=== PATIENT | male | born 1940 | race African-American/Black ===

== ENCOUNTER 2018-02-20 13:10 | Inpatient (IN) | payer MEDICARE, OTHER ==
--- NOTE | 2018-02-20 13:43 | EKG REPORT ---
SEVERITY:- ABNORMAL ECG - SINUS RHYTHM VENTRICULAR PREMATURE COMPLEX NONSPECIFIC IVCD WITH LAD : Confirmed by: Estephanie Salazar MD 20-Feb-2018 13:43:04
[2018-02-20] MEDS ORDERED: ONDANSETRON 4 MG TAB.RAPDIS PO ONE (15:12)
--- NOTE | 2018-02-20 15:13 | ER Document Report ---
ED General - General Chief Complaint: Vomiting Stated Complaint: CHEST PAIN Time Seen by Provider: 02/20/18 15:01 Notes: Patient presents for concern of nausea and vomiting. He states that he ate Latvian food Monday night and contributes this to his vomiting episodes. He states that he has chest pain when he vomits but is chest pain-free in the emergency department this time. He has had approximately 8 episodes of vomiting over the last 2 days. He states recently his vomitus has been black colored. He is on Eliquis for A. fib. He has a history of triple bypass several years ago as well as a history of strokes. I have greeted and performed a rapid initial assessment of this patient. A comprehensive ED assessment and evaluation of the patient, analysis of test results and completion of the medical decision making process will be conducted by additional ED providers. PHYSICAL EXAMINATION: GENERAL: Well-appearing, well-nourished and in no acute distress. HEAD: Atraumatic, normocephalic. EYES: Pupils equal round extraocular movements intact, conjunctiva are normal. ENT: Nares patent, mildly dry mucus membranes NECK: Normal range of motion LUNGS: No respiratory distress Musculoskeletal: Normal range of motion NEUROLOGICAL: Normal speech, normal gait. PSYCH: Normal mood, normal affect. SKIN: Warm, Dry, normal turgor, no rashes or lesions noted. TRAVEL OUTSIDE OF THE [place] IN LAST 30 DAYS: No - Related Data Allergies/Adverse Reactions: ciprofloxacin [From Cipro] Allergy (Verified 05/18/15 11:06) enalapril maleate [From Vasotec] Allergy (Verified 05/18/15 11:06) niacin [From Niaspan] Allergy (Verified 05/18/15 11:06) Past Medical History - Social History Smoking Status: Former Smoker Family History: Reviewed & Not Pertinent Patient has suicidal ideation: No Patient has homicidal ideation: No - Past Medical History Cardiac Medical History: Reports: Hx Coronary Artery Disease, Hx Heart Attack - 2006, Hx Hypercholesterolemia, Hx Hypertension, Hx Pulmonary Embolism - x3 last 2007 Pulmonary Medical History: Reports: Hx Asthma, Hx COPD, Hx Tuberculosis Endocrine Medical History: Reports: Hx Diabetes Mellitus Type 2 Renal/ Medical History: Denies: Hx Peritoneal Dialysis Psychiatric Medical History: Reports: Hx Depression Past Surgical History: Reports: Hx Abdominal Surgery - colon polyps, Hx Cardiac Surgery - CABGx3, Hx Coronary Artery Bypass Graft - 2006, Hx Open Heart Surgery , Hx Rectal Surgery - colon polyps, Hx Urinary Tract Surgery - Immunizations Hx Diphtheria, Pertussis, Tetanus Vaccination: Yes Hx Pneumococcal Vaccination: 07/17/09 Physical Exam - Vital signs Vitals: Temp Pulse Resp BP Pulse Ox 98.3 F 70 14 120/74 95 02/20/18 13:28 02/20/18 13:28 02/20/18 13:28 02/20/18 13:28 02/20/18 13:28 Course - Vital Signs Vital signs: Temp Pulse Resp BP Pulse Ox 98.3 F 70 14 120/74 95 02/20/18 13:28 02/20/18 13:28 02/20/18 13:28 02/20/18 13:28 02/20/18 13:28 Discharge - Discharge Referrals: EARLINE KWON DO [Primary Care Provider] - Follow up as needed
[2018-02-20 15:36] LABS: ABSOLUTE BASOPHILS # (AUTO) 0.1 10^3/uL (0.0-0.2); ABSOLUTE LYMPHOCYTES (AUTO) 1.2 10^3/uL (0.5-4.7); ABSOLUTE MONOCYTES (AUTO) 0.7 10^3/uL (0.1-1.4); ABSOLUTE NEUT (AUTO) 7.3 10^3/uL (1.7-8.2); BASOPHILS % (AUTO) 0.7 % (0-2); EOSINOPHILS % (AUTO) 0.1 % (0-6); HEMATOCRIT 42.9 % (37.9-51.0); HEMOGLOBIN 14.1 g/dL (13.5-17.0); MEAN CORPUSCULAR HEMOGLOBIN 30.7 pg (27.0-33.4); MEAN CORPUSCULAR HGB CONC 32.9 g/dL (32.0-36.0); MEAN CORPUSCULAR VOLUME 93 fl (80-97); MONOCYTES % (AUTO) 7.9 % (3-13); PLATELET COUNT 135 10^3/uL (150-450); RED BLOOD COUNT 4.59 10^6/uL (4.35-5.55); RED CELL DISTRIBUTION WIDTH 15.1 % (11.5-14.0); SEGMENTED NEUTROPHILS % (AUTO) 78.3 % (42-78); TOTAL CELLS COUNTED % (AUTO) 100 %; WHITE BLOOD COUNT 9.4 10^3/uL (4.0-10.5)
[2018-02-20 15:48] LABS: PROTHROMBIN TIME 15.8 SEC (11.4-15.4)
--- NOTE | 2018-02-20 15:51 | RADIOLOGY REPORT (SQ) ---
EXAM DESCRIPTION: ACUTE ABDOMEN SERIES COMPLETED DATE/TIME: 02/20/2018 3:34 pm REASON FOR STUDY: lump in epigastric area when eating COMPARISON: None. NUMBER OF VIEWS: Three views. TECHNIQUE: Frontal chest, supine abdomen and upright/decubitus abdomen radiographic images acquired. LIMITATIONS: None. FINDINGS: CHEST: Lungs clear of infiltrates. FREE AIR: None. No abnormal gas collections. BOWEL GAS PATTERN: Nonobstructive pattern. No dilated loops or air fluid levels. CALCIFICATIONS: No suspicious calcifications. HARDWARE: Bilateral iliac stents. IVC filter. Status post CABG. SOFT TISSUES: No gross mass or suggestion of organomegaly. BONES: No acute fracture. No worrisome bone lesions. OTHER: No other significant finding. IMPRESSION: NO RADIOGRAPHIC EVIDENCE FOR ACUTE ABDOMINAL DISEASE. TECHNICAL DOCUMENTATION: JOB ID: [id number] [employer]- All Rights Reserved Reading location - IP/workstation name: [email or web address]
[2018-02-20 16:01] LABS: ALANINE AMINOTRANSFERASE 28 U/L (21-72); ALBUMIN 4.3 g/dL (3.5-5.0); ALKALINE PHOSPHATASE 69 U/L (38-126); ANION GAP 16 (5-19); ASPARTATE AMINO TRANSFERASE 54 U/L (17-59); BILIRUBIN,DIRECT 0.4 mg/dL (0.0-0.4); BILIRUBIN,TOTAL 0.9 mg/dL (0.2-1.3); BLOOD UREA NITROGEN 37 mg/dL (7-20); CALCIUM 9.4 mg/dL (8.4-10.2); CARBON DIOXIDE 31 mmol/L (22-30); CHLORIDE 94 mmol/L (98-107); GLUCOSE 140 mg/dL (75-110); LIPASE 1103.3 U/L (23-300); POTASSIUM 3.9 mmol/L (3.6-5.0); SODIUM 141.2 mmol/L (137-145); TOTAL PROTEIN 7.5 g/dL (6.3-8.2)
[2018-02-20 18:53] LABS: TRIGLYCERIDES 255 mg/dL (<150)
[2018-02-20 18:59] LABS: ALCOHOL < 10 mg/dL (NONE DETECTED)
--- NOTE | 2018-02-20 19:56 | RADIOLOGY REPORT (SQ) ---
EXAM DESCRIPTION: U/S ABDOMEN LTD W/DOPPLER COMPLETED DATE/TIME: 02/20/2018 7:39 pm REASON FOR STUDY: Acute pancreatitis COMPARISON: None. TECHNIQUE: Dynamic and static grayscale images acquired of the abdomen and recorded on PACS. Additio nal selected color Doppler and spectral images recorded. LIMITATIONS: None. FINDINGS: PANCREAS: Not able to be seen. LIVER: 15 cm. Normal echotexture. LIVER VASCULATURE: Normal directional flow of the main portal vein and hepatic veins. GALLBLADDER: Possible small gallstone versus polyp. ULTRASOUND-DETECTED TOLEDO'S SIGN: Negative. INTRAHEPATIC DUCTS AND COMMON DUCT: CBD and intrahepatic ducts normal caliber. No filling defects. INFERIOR VENA CAVA: Normal flow. AORTA: Poorly seen. The midportion the aorta appears normal. RIGHT KIDNEY: Normal size, 9.7 cm. Normal echogenicity. No solid or suspicious masses. No hydroneph rosis. No calcifications. PERITONEAL AND RIGHT PLEURAL SPACE: No ascites or effusions. OTHER: No other significant findings. IMPRESSION: Possible small gallstone versus polyp. The pancreas cannot be seen. TECHNICAL DOCUMENTATION: JOB ID: [id number] [employer]- All Rights Reserved Reading location - IP/workstation name: [email or web address]
[2018-02-20 20:29] LABS: LIPASE 1470.8 U/L (23-300)
[2018-02-20] MEDS ORDERED: NORMAL SALINE 1000 ML 1,000 ML IV ONE (20:34)
[2018-02-20] MEDS ORDERED: ZOLPIDEM TARTRATE 5 MG TABLET PO PRN (20:47)
[2018-02-20] MEDS ORDERED: MAGNESIUM HYDROXIDE SUSP 30 ML UDCUP PO PRN (20:47)
[2018-02-20] MEDS ORDERED: MAG HYDROX/AL HYDROX/SIMETH SUSP 30 ML UDCUP PO PRN (20:47)
[2018-02-20] MEDS ORDERED: ACETAMINOPHEN 325 MG TABLET PO PRN (20:47)
[2018-02-20] MEDS ORDERED: MORPHINE SULFATE 10 MG/ML INJ IV PRN (20:58)
--- NOTE | 2018-02-20 21:08 | ER Document Report ---
ED Medical Screen (RME) - General Chief Complaint: Vomiting Stated Complaint: CHEST PAIN Time Seen by Provider: 02/20/18 15:01 Notes: Patient presents for concern of nausea and vomiting. He states that he ate Yoruba food Monday night and contributes this to his vomiting episodes. He states that he has chest pain when he vomits but is chest pain-free in the emergency department this time. He has had approximately 8 episodes of vomiting over the last 2 days. He states recently his vomitus has been black colored. He is on Eliquis for A. fib. He has a history of triple bypass several years ago as well as a history of strokes. I have greeted and performed a rapid initial assessment of this patient. A comprehensive ED assessment and evaluation of the patient, analysis of test results and completion of the medical decision making process will be conducted by additional ED providers. PHYSICAL EXAMINATION: GENERAL: Well-appearing, well-nourished and in no acute distress. HEAD: Atraumatic, normocephalic. EYES: Pupils equal round extraocular movements intact, conjunctiva are normal. ENT: Nares patent, mildly dry mucus membranes NECK: Normal range of motion LUNGS: No respiratory distress Musculoskeletal: Normal range of motion NEUROLOGICAL: Normal speech, normal gait. PSYCH: Normal mood, normal affect. TRAVEL OUTSIDE OF THE [place] IN LAST 30 DAYS: No - Related Data Allergies/Adverse Reactions: ciprofloxacin [From Cipro] Allergy (Verified 05/18/15 11:06) enalapril maleate [From Vasotec] Allergy (Verified 05/18/15 11:06) niacin [From Niaspan] Allergy (Verified 05/18/15 11:06) Past Medical History - Past Medical History Cardiac Medical History: Reports: Hx Coronary Artery Disease, Hx Heart Attack - 2006, Hx Hypercholesterolemia, Hx Hypertension, Hx Pulmonary Embolism - x3 last 2007 Pulmonary Medical History: Reports: Hx Asthma, Hx COPD, Hx Tuberculosis Endocrine Medical History: Reports: Hx Diabetes Mellitus Type 2 Renal/ Medical History: Denies: Hx Peritoneal Dialysis Psychiatric Medical History: Reports: Hx Depression Past Surgical History: Reports: Hx Abdominal Surgery - colon polyps, Hx Cardiac Surgery - CABGx3, Hx Coronary Artery Bypass Graft - 2006, Hx Open Heart Surgery , Hx Rectal Surgery - colon polyps, Hx Urinary Tract Surgery - Immunizations Hx Diphtheria, Pertussis, Tetanus Vaccination: Yes Physical Exam - Vital signs Vitals: Temp Pulse Resp BP Pulse Ox 98.3 F 70 14 120/74 95 02/20/18 13:28 02/20/18 13:28 02/20/18 13:28 02/20/18 13:28 02/20/18 13:28 Course - Vital Signs Vital signs: Temp Pulse Resp BP Pulse Ox 98.3 F 70 15 163/84 H 96 02/20/18 13:28 02/20/18 13:28 02/20/18 20:30 02/20/18 20:30 02/20/18 20:30 - Laboratory Result Diagrams: 02/20/18 15:18 02/20/18 15:18 Laboratory results interpreted by me: 02/20/18 02/20/18 02/20/18 15:18 15:18 15:18 RDW 15.1 H Plt Count 135 L Seg Neutrophils % 78.3 H PT 15.8 H Chloride 94 L Carbon Dioxide 31 H BUN 37 H Creatinine 1.44 H Est GFR ( Amer) 57 L Est GFR (Non-Af Amer) 47 L Glucose 140 H Magnesium 1.5 L Triglycerides Amylase Lipase 1103.3 H 02/20/18 02/20/18 15:18 19:50 RDW Plt Count Seg Neutrophils % PT Chloride Carbon Dioxide BUN Creatinine Est GFR ( Amer) Est GFR (Non-Af Amer) Glucose Magnesium Triglycerides 255 H Amylase 400 H Lipase 1470.8 H
--- NOTE | 2018-02-20 21:59 | PDOC H&P ---
History of Present Illness Admission Date/PCP: 02/20/2018 LEÓN MCFARLAND DO Patient complains of: Recurrent nausea and vomiting History of Present Illness: ISAURO CARREON is a 77 year old gentleman with history of multiple medical problems that will be mentioned below presented to the emergency room with acute onset of recurrent nausea and vomiting with associated epigastric abdominal pain and mild diarrhea with loose bowel movements. He ate Mongolian food on Monday night which she believes contributed to his vomiting. He admitted to drinking 2 glasses of vodka on Monday night he has been getting chest pain with vomiting but has been chest pain-free in the emergency room. Over the last couple of days he had about 8 episodes of vomiting. It has been black colored. He has been on Eliquis for atrial fibrillation and history of CVAs. He admitted to intermittent dry cough and raw throat feeling with minimal postnasal drip. He denies any fever or chills. No dysuria, oliguria, hematuria or flank pain. No headache, dizziness or blurred vision. Upon presentation to the emergency room is vital signs were within normal as listed except for elevated blood pressure 163/83 that was 120/74 earlier. His labs were remarkable for elevated BUN of 37 and creatinine 1.44 with CO2 31 and chloride of 94. Blood glucose was 140 and his platelets were low at 135. LFTs were within normal. His serum lipase came significantly elevated at 1103. His PT was 15.8 and INR was 1.2 and magnesium level was low at 1.5. LDH was 211 and his amylase was 400. Repeat lipase levels came back 1470.8. He was given 4 mg of Zofran as well as hydration with IV normal saline. Acute abdominal series came back negative for acute abnormalities. His EKG showed normal sinus rhythm with a rate of 66 with PVC and nonspecific intraventricular conduction delay. The patient will be admitted to a medically monitored bed for further evaluation and management Past Medical History Cardiac Medical History: Reports: Coronary Artery Disease, Myocardial Infarction - 2007, Hyperlipidema, Hypertension, Pulmonary Embolism - x3 last 2007, on Eliquis Pulmonary Medical History: Reports: Asthma, Chronic Obstructive Pulmonary Disease (COPD), Tuberculosis Endocrine Medical History: Reports: Diabetes Mellitus Type 2 Psychiatric Medical History: Reports: Depression Past Surgical History Past Surgical History: Reports: Coronary Artery Bypass Graft - 2007 Social History Smoking Status: Former Smoker Frequency of Alcohol Use: Rare Hx Recreational Drug Use: No Hx Prescription Drug Abuse: No Family History Family History: CVA Parental Family History Reviewed: Yes Children Family History Reviewed: Yes Sibling(s) Family History Reviewed.: Yes Medication/Allergy Home Medications: Paroxetine HCl [Paxil] 30 mg PO DAILY 06/22/12 Amlodipine Besylate 5 mg PO DAILY 07/31/13 Atorvastatin Calcium [Lipitor 80 mg Tablet] 80 mg PO QHS 07/31/13 Metoprolol Tartrate [Lopressor 50 mg Tablet] 50 mg PO BID 07/31/13 Warfarin Sodium 5 mg PO ASDIR PRN 07/31/13 Warfarin Sodium 7.5 mg PO ASDIR PRN 07/31/13 Metformin HCl 500 mg PO BID 03/28/15 Oxycodone HCl/Acetaminophen [Percocet 5-325 mg Tablet] 1 - 2 tab PO ASDIR PRN # 15 tablet 03/28/15 Prednisone [Deltasone 10 mg Tablet] 10 mg PO ASDIR PRN #21 tablet 03/28/15 Azithromycin [Zithromax 250 mg Tablet] 250 mg PO ASDIR PRN #6 tablet 05/18/15 Allergies/Adverse Reactions: ciprofloxacin [From Cipro] Allergy (Verified 05/18/15 11:06) enalapril maleate [From Vasotec] Allergy (Verified 05/18/15 11:06) niacin [From Niaspan] Allergy (Verified 05/18/15 11:06) Review of Systems Review of Systems: As per history of present illness. All pertinent systems were reviewed above. Constitutional, HEENT, cardiovascular, respiratory, GI, , musculoskeletal, neuro, psychiatric, endocrine, integumentary and hematologic systems were reviewed and are otherwise negative/unremarkable except for positive findings mentioned above in the HPI. Physical Exam Vital Signs: Temp Pulse Resp BP Pulse Ox 98.3 F 70 15 163/84 H 96 02/20/18 13:28 02/20/18 13:28 02/20/18 20:30 02/20/18 20:30 02/20/18 20:30 Intake & Output 02/19/18 02/20/18 02/21/18 06:59 06:59 06:59 Weight 93.8 kg Exam: Generally: Very pleasant elderly -Martiniquais gentleman in no acute distress Vital signs-as listed Head - atraumatic, normocephalic. Pupils - equal, round and reactive to light and accommodation. Extraocular movements are intact. No scleral icterus. Oropharynx - moist mucous membranes and tongue. No pharyngeal erythema or exudate. Neck - supple. No JVD. Carotid pulses 2+ bilaterally. No carotid bruits. No palpable thyromegaly or lymphadenopathy. Cardiovascular - regular rate and rhythm. Normal S1 and S2. No murmurs, gallops or rubs. Lungs - clear to auscultation bilaterally. Abdomen - soft with minimal epigastric tenderness without rebound tenderness guarding or rigidity. Positive bowel sounds. No palpable organomegaly or masses. Extremities - no pitting edema, clubbing or cyanosis. Neuro - grossly non-focal. Skin - no rashes. and rectal exam - deferred. Results Laboratory Results: 02/20/18 15:18 02/20/18 15:18 02/20/18 02/20/18 02/20/18 15:18 15:18 15:18 WBC 9.4 RBC 4.59 Hgb 14.1 Hct 42.9 MCV 93 MCH 30.7 MCHC 32.9 RDW 15.1 H Plt Count 135 L Seg Neutrophils % 78.3 H Lymphocytes % 13.0 Monocytes % 7.9 Eosinophils % 0.1 Basophils % 0.7 Absolute Neutrophils 7.3 Absolute Lymphocytes 1.2 Absolute Monocytes 0.7 Absolute Eosinophils 0.0 Absolute Basophils 0.1 Sodium 141.2 Potassium 3.9 Chloride 94 L Carbon Dioxide 31 H Anion Gap 16 BUN 37 H Creatinine 1.44 H Est GFR ( Amer) 57 L Est GFR (Non-Af Amer) 47 L Glucose 140 H Calcium 9.4 Magnesium 1.5 L Total Bilirubin 0.9 AST 54 ALT 28 Alkaline Phosphatase 69 Total Protein 7.5 Albumin 4.3 Triglycerides 255 H Amylase Lipase 1103.3 H 02/20/18 02/20/18 18:48 19:50 WBC RBC Hgb Hct MCV MCH MCHC RDW Plt Count Seg Neutrophils % Lymphocytes % Monocytes % Eosinophils % Basophils % Absolute Neutrophils Absolute Lymphocytes Absolute Monocytes Absolute Eosinophils Absolute Basophils Sodium Potassium Chloride Carbon Dioxide Anion Gap BUN Creatinine Est GFR ( Amer) Est GFR (Non-Af Amer) Glucose Calcium Magnesium Total Bilirubin AST ALT Alkaline Phosphatase Total Protein Albumin Triglycerides Amylase Cancelled 400 H Lipase Cancelled 1470.8 H 02/20/18 15:18 Troponin I 0.029 Impressions: Acute Abdomen Series 02/20/18 15:08 IMPRESSION: NO RADIOGRAPHIC EVIDENCE FOR ACUTE ABDOMINAL DISEASE. Abdomen Ultrasound 02/20/18 18:29 IMPRESSION: Possible small gallstone versus polyp. The pancreas cannot be seen. Assessment & Plan - Diagnosis (1) Acute pancreatitis Is this a current diagnosis for this admission?: Yes Plan: The patient will be admitted to a medically monitored bed. The patient will be kept n.p.o. Will hydrate with IV normal saline and place him on pain therapy with as needed p.o. Percocet and IV morphine sulfate. Will follow serial lipase levels. (2) Acute kidney injury Is this a current diagnosis for this admission?: Yes Plan: This is likely secondary to dehydration from recurrent nausea vomiting and diarrhea. Will check stool studies given the possibility of associated gastroenteritis and he will be hydrated with IV normal saline. CMP will be followed (3) Type 2 diabetes mellitus Qualifiers: Diabetes mellitus custodial insulin use: without custodial use Diabetes mellitus complication status: without complication Qualified Code(s): E11.9 - Type 2 diabetes mellitus without complications Is this a current diagnosis for this admission?: Yes Plan: Patient will be placed on supplemental coverage with Humalog and will hold off metformin. (4) Coronary artery disease Is this a current diagnosis for this admission?: Yes Plan: We will continue Lopressor. (5) Hypertension Is this a current diagnosis for this admission?: Yes Plan: We will continue Norvasc and Lopressor. (6) Dyslipidemia Is this a current diagnosis for this admission?: Yes Plan: We will hold off statin therapy for now while following LFTs. (7) DVT prophylaxis Is this a current diagnosis for this admission?: Yes Plan: We will continue Eliquis. He had a history of PE 3. GI prophylaxis will be provided with IV Protonix especially given recurrent nausea and vomiting and use of Eliquis. - Plan Summary Plan Summary: The plan of care was discussed in details with the patient. I answered all questions. The patient agreed to proceed with the above-mentioned plan. The patient is presumably full code. This note was created by [employer] software and may contain typo errors that may have not been proofread.
[2018-02-20] MEDS ORDERED: ENOXAPARIN SODIUM INJ 40 MG/0.4 ML DISP.SYRIN SUBCUT SCH (22:00)
[2018-02-20] MEDS: METOPROLOL TARTRATE 50 MG TABLET PO SCH (22:01)
[2018-02-20] MEDS: PANTOPRAZOLE SODIUM 40 MG VIAL IV SCH (22:02)
[2018-02-20] MEDS ORDERED: DEXTROSE 50%-WATER 25 GM/50 ML DISP.SYRIN IV PRN ×2 (23:16)
[2018-02-20] MEDS ORDERED: DEXTROSE 40% GEL 15 GM TUBE PO PRN ×2 (23:16)
[2018-02-20] MEDS ORDERED: GLUCAGON,HUMAN RECOMB 1 MG INJ IM PRN (23:16)
--- NOTE | 2018-02-20 23:27 | ER Document Report ---
ED General - General Chief Complaint: Vomiting Stated Complaint: CHEST PAIN Time Seen by Provider: 02/20/18 15:01 TRAVEL OUTSIDE OF THE [place] IN LAST 30 DAYS: No - HPI Patient complains to provider of: Vomiting chest pain Notes: Patient coming in for evaluation of vomiting chest pain. Patient states approximately 4 hours ago he had Scottish food since that time has vomited multiple times with epigastric and chest pain. Patient does have past medical history positive for A. fib urinary embolism currently is on Eliquis. Patient continues to have his gallbladder and his appendix states no abdominal surgeries. Patient upon my evaluation is resting comfortably stating that he feels somewhat better after nausea medication. Patient also relates that he does drink alcohol occasionally however nothing recently in the last 24-48 hours. Denies any fevers chills denies any diarrhea. - Related Data Allergies/Adverse Reactions: ciprofloxacin [From Cipro] Allergy (Verified 05/18/15 11:06) enalapril maleate [From Vasotec] Allergy (Verified 05/18/15 11:06) niacin [From Niaspan] Allergy (Verified 05/18/15 11:06) Past Medical History - Social History Smoking Status: Former Smoker Family History: CVA Patient has suicidal ideation: No Patient has homicidal ideation: No - Past Medical History Cardiac Medical History: Reports: Hx Coronary Artery Disease, Hx Heart Attack - 2006, Hx Hypercholesterolemia, Hx Hypertension, Hx Pulmonary Embolism - x3 last 2007, on Eliquis Pulmonary Medical History: Reports: Hx Asthma, Hx COPD, Hx Tuberculosis Endocrine Medical History: Reports: Hx Diabetes Mellitus Type 2 Renal/ Medical History: Denies: Hx Peritoneal Dialysis Psychiatric Medical History: Reports: Hx Depression Past Surgical History: Reports: Hx Abdominal Surgery - colon polyps, Hx Cardiac Surgery - CABGx3, Hx Coronary Artery Bypass Graft - 2006, Hx Open Heart Surgery , Hx Rectal Surgery - colon polyps, Hx Urinary Tract Surgery - Immunizations Hx Diphtheria, Pertussis, Tetanus Vaccination: Yes Hx Pneumococcal Vaccination: 07/17/09 Review of Systems - Review of Systems Constitutional: No symptoms reported EENT: No symptoms reported Cardiovascular: No symptoms reported, Chest pain Respiratory: No symptoms reported Gastrointestinal: Abdominal pain, Nausea, Vomiting Genitourinary: No symptoms reported Male Genitourinary: No symptoms reported Musculoskeletal: No symptoms reported Skin: No symptoms reported Hematologic/Lymphatic: No symptoms reported Neurological/Psychological: No symptoms reported -: Yes All other systems reviewed and negative Physical Exam - Vital signs Vitals: Temp Pulse Resp BP Pulse Ox 98.3 F 70 14 120/74 95 02/20/18 13:28 02/20/18 13:28 02/20/18 13:28 02/20/18 13:28 02/20/18 13:28 Interpretation: Normal - General General appearance: Appears well, Alert - HEENT Head: Normocephalic, Atraumatic Eyes: Normal Pupils: PERRL - Respiratory Respiratory status: No respiratory distress Chest status: Nontender Breath sounds: Normal Chest palpation: Normal - Cardiovascular Rhythm: Regular Heart sounds: Normal auscultation Murmur: No - Abdominal Inspection: Normal Distension: No distension Bowel sounds: Normal Tenderness: Tender - Mild tenderness epigastric region the right upper quadrant tenderness no guarding or rebound Organomegaly: No organomegaly - Back Back: Normal, Nontender - Extremities General upper extremity: Normal inspection, Nontender, Normal color, Normal ROM , Normal temperature General lower extremity: Normal inspection, Nontender, Normal color, Normal ROM , Normal temperature, Normal weight bearing. No: Elen's sign - Neurological Neuro grossly intact: Yes Cognition: Normal Orientation: AAOx4 Lilo Coma Scale Eye Opening: Spontaneous [place] Coma Scale Verbal: Oriented Lilo Coma Scale Motor: Obeys Commands [place] Coma Scale Total: 15 Speech: Normal Motor strength normal: LUE, RUE, LLE, RLE Sensory: Normal - Psychological Associated symptoms: Normal affect, Normal mood - Skin Skin Temperature: Warm Skin Moisture: Dry Skin Color: Normal Course - Re-evaluation Re-evalutation: 02/20/18 23:25 Laboratory studies showed elevated lipase concerning for pancreatitis. Ultrasound was performed along with LDH triglycerides and a repeat lipase showing up trending. Patient otherwise states he is feeling better. Now concern for the patient's underlying comorbidities and his age will admit the patient for observation for underlying pancreatitis. - Vital Signs Vital signs: Temp Pulse Resp BP Pulse Ox 98.3 F 70 22 H 148/88 H 94 02/20/18 13:28 02/20/18 13:28 02/20/18 22:01 02/20/18 22:00 02/20/18 22:01 - Laboratory Result Diagrams: 02/20/18 15:18 02/20/18 15:18 Laboratory results interpreted by me: 02/20/18 02/20/18 02/20/18 15:18 15:18 15:18 RDW 15.1 H Plt Count 135 L Seg Neutrophils % 78.3 H PT 15.8 H Chloride 94 L Carbon Dioxide 31 H BUN 37 H Creatinine 1.44 H Est GFR ( Amer) 57 L Est GFR (Non-Af Amer) 47 L Glucose 140 H Magnesium 1.5 L Triglycerides Amylase Lipase 1103.3 H 02/20/18 02/20/18 15:18 19:50 RDW Plt Count Seg Neutrophils % PT Chloride Carbon Dioxide BUN Creatinine Est GFR ( Amer) Est GFR (Non-Af Amer) Glucose Magnesium Triglycerides 255 H Amylase 400 H Lipase 1470.8 H Discharge - Discharge Clinical Impression: Acute pancreatitis, Coronary artery disease Type 2 diabetes mellitus Qualifiers: Diabetes mellitus chcf insulin use: without long term care administrator use Diabetes mellitus complication status: without complication Qualified Code(s): E11.9 - Type 2 diabetes mellitus without complications Condition: Good Disposition: ADMITTED INPATIENT Admitting Provider: [facility] Unit Admitted: Telemetry
[2018-02-20] MEDS ORDERED: APIXABAN 5 MG TABLET PO ONE (23:30)
[2018-02-20] MEDS: MAGNESIUM SULFATE/D5W 1 GM/100 ML RTUPB IV SCH (23:56)
[2018-02-21] MEDS: MAGNESIUM SULFATE/D5W 1 GM/100 ML RTUPB IV SCH (00:54)
[2018-02-21 07:10] LABS: ALANINE AMINOTRANSFERASE 33 U/L (21-72); ALBUMIN 3.4 g/dL (3.5-5.0); ALKALINE PHOSPHATASE 79 U/L (38-126); ANION GAP 11 (5-19); ASPARTATE AMINO TRANSFERASE 35 U/L (17-59); BILIRUBIN,DIRECT 0.3 mg/dL (0.0-0.4); BILIRUBIN,TOTAL 0.8 mg/dL (0.2-1.3); BLOOD UREA NITROGEN 26 mg/dL (7-20); CALCIUM 8.7 mg/dL (8.4-10.2); CARBON DIOXIDE 29 mmol/L (22-30); CHLORIDE 102 mmol/L (98-107); POTASSIUM 4.1 mmol/L (3.6-5.0); SODIUM 141.9 mmol/L (137-145); TOTAL PROTEIN 5.8 g/dL (6.3-8.2)
[2018-02-21 07:12] LABS: GLUCOSE 103 mg/dL (75-110)
[2018-02-21 07:20] LABS: HEMATOCRIT 40.1 % (37.9-51.0); HEMOGLOBIN 13.3 g/dL (13.5-17.0); LIPASE 2305.7 U/L (23-300); MEAN CORPUSCULAR HEMOGLOBIN 30.6 pg (27.0-33.4); MEAN CORPUSCULAR HGB CONC 33.2 g/dL (32.0-36.0); MEAN CORPUSCULAR VOLUME 92 fl (80-97); PLATELET COUNT 106 10^3/uL (150-450); RED BLOOD COUNT 4.35 10^6/uL (4.35-5.55); RED CELL DISTRIBUTION WIDTH 15.3 % (11.5-14.0); WHITE BLOOD COUNT 7.2 10^3/uL (4.0-10.5)
[2018-02-21 07:22] LABS: ABSOLUTE LYMPHOCYTES# (MANUAL) 1.3 10^3/uL (0.5-4.7); ABSOLUTE MONOCYTES # (MANUAL) 0.7 10^3/uL (0.1-1.4); ANISOCYTOSIS SLIGHT; BASOPHILS % (MANUAL) 0 % (0-2); EOSINOPHILS % (MANUAL) 2 % (0-6); LYMPHOCYTES % (MANUAL) 18 % (13-45); MONOCYTES % (MANUAL) 10 % (3-13); SEGMENTED NEUTROPHILS % (MAN) 70 % (42-78); TOTAL CELLS COUNTED 100
[2018-02-21 07:23] LABS: PLATELET COMMENT DECREASED
--- NOTE | 2018-02-21 09:39 | PDOC CONSULTATION ---
Consultation Consult reason:: Pancreatitis History of Present Illness Admission Date/PCP: 02/20/18 21:06 LEÓN MCFARLAND DO History of Present Illness: ISAURO CARREON is a 77 year old male seen at the request of the hospitalist service. Patient has a several day history of sharp, stabbing abdominal pain in the epigastric region. It bores through to the back. The patient has had multiple episodes of nausea and vomiting. He also reports intermittent diarrhea. Patient has never had symptoms like this before. The patient was found to have gallstones on ultrasound. The patient also reports drinking alcohol several times a week (I suspect every day). At this time the patient denies chest pain, shortness of breath, fevers, chills, dizziness, orthostasis, rash, pruritus. The patient's abdominal pain is still present, but it is improving. He does report malaise and fatigue. He denies a history of liver failure. He has a significant cardiac history, including four-vessel CABG. The patient reports that he recently was evaluated in [place] by his booth cleaner. Past Medical History Cardiac Medical History: Reports: Coronary Artery Disease, Myocardial Infarction - 2006, Hyperlipidema, Hypertension, Pulmonary Embolism - x3 last 2007, on Eliquis Pulmonary Medical History: Reports: Asthma, Chronic Obstructive Pulmonary Disease (COPD), Tuberculosis Endocrine Medical History: Reports: Diabetes Mellitus Type 2 Psychiatric Medical History: Reports: Depression Past Surgical History Past Surgical History: Reports: Coronary Artery Bypass Graft - 2006 Social History Smoking Status: Former Smoker Frequency of Alcohol Use: Heavy Hx Recreational Drug Use: No Hx Prescription Drug Abuse: No Family History Family History: CVA Parental Family History Reviewed: Yes Children Family History Reviewed: Yes Sibling(s) Family History Reviewed.: Yes Medication/Allergy Home Medications: Paroxetine HCl [Paxil] 30 mg PO DAILY 06/22/12 Amlodipine Besylate 5 mg PO DAILY 07/31/13 Atorvastatin Calcium [Lipitor 80 mg Tablet] 80 mg PO QHS 07/31/13 Metoprolol Tartrate [Lopressor 50 mg Tablet] 50 mg PO BID 07/31/13 Warfarin Sodium 5 mg PO ASDIR PRN 07/31/13 Warfarin Sodium 7.5 mg PO ASDIR PRN 07/31/13 Metformin HCl 500 mg PO BID 03/28/15 Oxycodone HCl/Acetaminophen [Percocet 5-325 mg Tablet] 1 - 2 tab PO ASDIR PRN # 15 tablet 03/28/15 Prednisone [Deltasone 10 mg Tablet] 10 mg PO ASDIR PRN #21 tablet 03/28/15 Azithromycin [Zithromax 250 mg Tablet] 250 mg PO ASDIR PRN #6 tablet 05/18/15 Allergies/Adverse Reactions: ciprofloxacin [From Cipro] Allergy (Verified 05/18/15 11:06) enalapril maleate [From Vasotec] Allergy (Verified 05/18/15 11:06) niacin [From Niaspan] Allergy (Verified 05/18/15 11:06) Review of Systems Constitutional: PRESENT: fatigue. ABSENT: fever(s), headache(s) Eyes: ABSENT: visual disturbances Ears: ABSENT: hearing changes Nose, Mouth, and Throat: ABSENT: sore throat Cardiovascular: ABSENT: chest pain Respiratory: ABSENT: cough, dyspnea Gastrointestinal: PRESENT: abdominal pain, nausea, vomiting Genitourinary: ABSENT: dysuria Musculoskeletal: PRESENT: back pain Integumentary: ABSENT: pruritus, rash Neurological: ABSENT: abnormal movements, confusion, convulsions Psychiatric: ABSENT: anxiety, depression, hallucinations Endocrine: ABSENT: cold intolerance, heat intolerance Hematologic/Lymphatic: PRESENT: easy bleeding - Takes Eliquis Physical Exam Vital Signs: Temp Pulse Resp BP Pulse Ox 97.9 F 61 16 136/66 H 97 02/21/18 08:07 02/21/18 08:07 02/21/18 08:07 02/21/18 08:07 02/21/18 08:07 Intake & Output 02/20/18 02/21/18 02/22/18 06:59 06:59 06:59 Intake Total 200 Balance 200 Weight 93.1 kg General appearance: PRESENT: no acute distress Head exam: PRESENT: atraumatic, normocephalic Eye exam: PRESENT: EOMI, PERRLA. ABSENT: scleral icterus Mouth exam: PRESENT: moist, neck supple Teeth exam: ABSENT: poor dentation Neck exam: ABSENT: lymphadenopathy, meningismus, tenderness, thyromegaly, tracheal deviation Respiratory exam: PRESENT: clear to auscultation claire, unlabored. ABSENT: accessory muscle use, chest wall tenderness, rhonchi, stridor, tachypnea, wheezes Cardiovascular exam: PRESENT: irregular rhythm Pulses: PRESENT: normal radial pulses Vascular exam: PRESENT: normal capillary refill. ABSENT: pallor GI/Abdominal exam: PRESENT: soft, tenderness - Mild epigastric tenderness. ABSENT: distended, firm, guarding Rectal exam: PRESENT: deferred Extremities exam: ABSENT: clubbing Musculoskeletal exam: ABSENT: deformity Neurological exam: PRESENT: alert, awake, oriented to person, oriented to place , oriented to time, oriented to situation, CN II-XII grossly intact Psychiatric exam: ABSENT: agitated, anxious, depressed Focused psych exam: ABSENT: delusional Skin exam: ABSENT: cyanosis, erythema, jaundice Results Laboratory Results: 02/21/18 06:33 02/21/18 06:33 02/21/18 02/21/18 06:33 06:33 WBC 7.2 RBC 4.35 Hgb 13.3 L Hct 40.1 MCV 92 MCH 30.6 MCHC 33.2 RDW 15.3 H Plt Count 106 L Seg Neutrophils % Not Reportable Lymphocytes % Not Reportable Monocytes % Not Reportable Eosinophils % Not Reportable Basophils % Not Reportable Absolute Neutrophils Not Reportable Absolute Lymphocytes Not Reportable Absolute Monocytes Not Reportable Absolute Eosinophils Not Reportable Absolute Basophils Not Reportable Sodium 141.9 Potassium 4.1 Chloride 102 Carbon Dioxide 29 Anion Gap 11 BUN 26 H Creatinine 0.97 Est GFR ( Amer) > 60 Est GFR (Non-Af Amer) > 60 Glucose 103 Calcium 8.7 Total Bilirubin 0.8 AST 35 ALT 33 Alkaline Phosphatase 79 Total Protein 5.8 L Albumin 3.4 L Lipase 2305.7 H Impressions: Acute Abdomen Series 02/20/18 15:08 IMPRESSION: NO RADIOGRAPHIC EVIDENCE FOR ACUTE ABDOMINAL DISEASE. Abdomen Ultrasound 02/20/18 18:29 IMPRESSION: Possible small gallstone versus polyp. The pancreas cannot be seen. Status: Imported from PACS Assessment & Plan - Diagnosis (1) Acute pancreatitis Qualifiers: Pancreatitis type: unspecified pancreatitis type Is this a current diagnosis for this admission?: Yes - Plan Summary Plan Summary: This is a 77-year-old male with gallstones and pancreatitis. The patient also has history of alcohol use. At this time, it is unclear whether his pancreatitis is due strictly to gallstones or not. If the patient is a good surgical candidate, cholecystectomy is indicated. The patient has a significant cardiac history. I will request his records from [place]. Patient was evaluated by his booth cleaner several months ago and was given a "clean bill of health". Hold Eliquis. Plan surgical intervention once cardiac stability is confirmed.
[2018-02-21] MEDS: ONDANSETRON HCL INJ/PF 4 MG/2 ML SDV IV PRN (09:59)
[2018-02-21] MEDS ORDERED: APIXABAN 5 MG TABLET PO SCH (10:00)
[2018-02-21] MEDS ORDERED: (PENDING PHARMACY ID) (Paroxetine Hcl [Paxil] 30 MG) PO SCH (10:00)
[2018-02-21] MEDS: GUAIFENESIN 600 MG TABLET.SA PO SCH ×2 (11:34→21:42)
[2018-02-21] MEDS: PAROXETINE HCL 20 MG TABLET PO SCH (11:35)
[2018-02-21] MEDS: AMLODIPINE BESYLATE 5 MG TABLET PO SCH (11:36)
[2018-02-21] MEDS: METOPROLOL TARTRATE 50 MG TABLET PO SCH ×2 (11:38→21:43)
[2018-02-21] MEDS: FLUTICASONE NASAL SPRAY 50 MCG/SPRY 120 SPRAY/16 GM NASL SCH (11:39)
[2018-02-21] MEDS: PANTOPRAZOLE SODIUM 40 MG VIAL IV SCH ×2 (12:06→21:44)
[2018-02-21] MEDS: OXYCODONE-ACETAMINOPHEN 5-325 MG TABLET PO PRN ×2 (12:23→16:56)
[2018-02-21] MEDS: NORMAL SALINE 1000 ML 1,000 ML IV PRN (14:57)
[2018-02-21] MEDS ORDERED: ALBUTEROL SULFATE HFA (90 MCG/PUFF) 200 PUFF/8.5 GM MDI IH PRN (17:58)
--- NOTE | 2018-02-21 17:58 | PDOC PROGRESS REPORT ---
Subjective Progress Note for:: 02/21/18 Subjective:: The patient is complaining of abdominal pain, but primarily in his right lower quadrant. When I explain where his pancreas is he also complains of pain there. He states that he feels no better, but actually feels worse. On the other hand he states that he would like a steak. Reason For Visit: ACUTE PANCREATITIS Physical Exam Vital Signs: Temp Pulse Resp BP Pulse Ox 98.3 F 54 L 18 131/64 H 93 02/21/18 11:59 02/21/18 14:00 02/21/18 11:59 02/21/18 11:59 02/21/18 11:59 Intake & Output 02/20/18 02/21/18 02/22/18 06:59 06:59 06:59 Intake Total 200 Balance 200 Weight 93.1 kg General appearance: PRESENT: mild distress - From abdominal pain., morbidly obese Respiratory exam: PRESENT: other - No increased work of breathing.. ABSENT: rales, rhonchi, wheezes Cardiovascular exam: PRESENT: RRR, other - No lateral PMI. No thrills.. ABSENT : gallop, systolic murmur Pulses: PRESENT: other - Diminished distal pulses. GI/Abdominal exam: PRESENT: tenderness - The patient indicates tenderness in the right lower quadrant and then his hypogatrum and finaly his epigastrum. To exam his abdomen is diffusely tender., other - Abdomen is morbidly obese and I am unable to evaluate the abdomen for hernia, masses, or organomegaly. Bowel sounds are distant. Rectal exam: PRESENT: deferred Extremities exam: PRESENT: other - Chronic venous stasis dermatitis.. ABSENT: clubbing, tenderness Musculoskeletal exam: PRESENT: tenderness. ABSENT: deformity, dislocation Neurological exam: PRESENT: alert, awake, oriented to person, oriented to place , oriented to time, oriented to situation, CN II-XII grossly intact. ABSENT: motor sensory deficit Psychiatric exam: PRESENT: appropriate affect, normal mood Skin exam: PRESENT: dry, intact, warm Results Laboratory Results: 02/21/18 06:33 02/21/18 06:33 02/21/18 02/21/18 06:33 06:33 WBC 7.2 RBC 4.35 Hgb 13.3 L Hct 40.1 MCV 92 MCH 30.6 MCHC 33.2 RDW 15.3 H Plt Count 106 L Seg Neutrophils % Not Reportable Lymphocytes % Not Reportable Monocytes % Not Reportable Eosinophils % Not Reportable Basophils % Not Reportable Absolute Neutrophils Not Reportable Absolute Lymphocytes Not Reportable Absolute Monocytes Not Reportable Absolute Eosinophils Not Reportable Absolute Basophils Not Reportable Sodium 141.9 Potassium 4.1 Chloride 102 Carbon Dioxide 29 Anion Gap 11 BUN 26 H Creatinine 0.97 Est GFR ( Amer) > 60 Est GFR (Non-Af Amer) > 60 Glucose 103 Calcium 8.7 Total Bilirubin 0.8 AST 35 ALT 33 Alkaline Phosphatase 79 Total Protein 5.8 L Albumin 3.4 L Lipase 2305.7 H Impressions: Acute Abdomen Series 02/20/18 15:08 IMPRESSION: NO RADIOGRAPHIC EVIDENCE FOR ACUTE ABDOMINAL DISEASE. Abdomen Ultrasound 02/20/18 18:29 IMPRESSION: Possible small gallstone versus polyp. The pancreas cannot be seen. Assessment & Plan - Diagnosis (2) Acute pancreatitis Qualifiers: Pancreatitis type: unspecified pancreatitis type Is this a current diagnosis for this admission?: Yes Plan: I appreciate surgery's evaluation. The patient may go for surgical solution if it is deemed that he is an appropriate surgical candidate. Dr. Duran has requested records from the patient's rotary drill operator helper in [place]. I have ordered a CT abdomen and pelvis with oral and IV contrast as the patient's description of his pain is not necessarily consistent with pancreatitis. (3) Coronary artery disease Qualifiers: Coronary Disease-Associated Artery/Lesion type: [place] artery Associated angina: without angina Is this a current diagnosis for this admission?: Yes Plan: The patient states that he was recently evaluated by his rotary drill operator helper and given "a clean bill of health". Surgery has requested records from his physician in [place]. The patient appears stable here. (4) DVT prophylaxis Is this a current diagnosis for this admission?: Yes Plan: The patient is on Eliquis due to his history of pulmonary embolus. It is now being held as the patient may need to go for surgery. (5) Dyslipidemia Is this a current diagnosis for this admission?: Yes Plan: Statin. (6) Hypertension Is this a current diagnosis for this admission?: Yes Plan: Fair control on current regimen. Monitor. (7) Type 2 diabetes mellitus Qualifiers: Diabetes mellitus skilled nursing insulin use: without freight dispatcher use Diabetes mellitus complication status: without complication Qualified Code(s): E11.9 - Type 2 diabetes mellitus without complications Is this a current diagnosis for this admission?: Yes Plan: The patient's glucoses appear to be well controlled currently. (8) History of pulmonary embolus (PE) Is this a current diagnosis for this admission?: Yes Plan: The patient takes Eliquis which is currently being held. - Time Time Spent with patient: 35 or more minutes Medications reviewed and adjusted accordingly: Yes
[2018-02-21] MEDS ORDERED: GLUCAGON,HUMAN RECOMB 1 MG INJ IM PRN (17:59)
[2018-02-21] MEDS ORDERED: DEXTROSE 40% GEL 15 GM TUBE PO PRN ×2 (17:59)
[2018-02-21] MEDS ORDERED: DEXTROSE 50%-WATER 25 GM/50 ML DISP.SYRIN IV PRN ×2 (17:59)
--- NOTE | 2018-02-21 18:42 | RADIOLOGY REPORT (SQ) ---
EXAM DESCRIPTION: CT ABD/PELVIS WITH IV ORAL COMPLETED DATE/TIME: 02/21/2018 5:53 pm REASON FOR STUDY: right lower quadrant pain, pancreatitis COMPARISON: None. TECHNIQUE: CT scan of the abdomen and pelvis performed using helical scanning technique with dynamic intravenous contrast injection. No oral contrast. Images reviewed with lung, soft tissue, and bone windows. Reconstructed coronal and sagittal MPR images reviewed. Delayed images for evaluation of the urinary system also acquired. All images stored on PACS. All CT scanners at this facility use dose modulation, iterative reconstruction, and/or weight based d osing when appropriate to reduce radiation dose to as low as reasonably achievable (ALARA). [facility]: Dose Right [facility]: CareDose [facility]: Dose Right [facility]: Teradose 4D [facility]: [place] CONTRAST TYPE AND DOSE: contrast/concentration: Isovue 350.00 mg/ml; Total Contrast Delivered: 100.0 ml; Total Saline Delivered: 23.0 ml RENAL FUNCTION: BUN 26 creatinine 1 RADIATION DOSE: . LIMITATIONS: None. FINDINGS: LOWER CHEST: No significant findings. No nodules or infiltrates. LIVER: Normal size. No masses. No dilated ducts. SPLEEN: Normal size. No focal lesions. PANCREAS: No masses. No significant calcifications. No adjacent inflammation or peripancreatic fluid collections. Pancreatic duct not dilated. GALLBLADDER: A small gallstone is seen. ADRENAL GLANDS: No significant masses or asymmetry. RIGHT KIDNEY AND URETER: No solid masses. No significant calcifications. No hydronephrosis or hyd roureter. LEFT KIDNEY AND URETER: No solid masses. No significant calcifications. No hydronephrosis or hydr oureter. AORTA AND VESSELS: Atherosclerosis. No aneurysm. RETROPERITONEUM: No retroperitoneal adenopathy, hemorrhage or masses. BOWEL AND PERITONEAL CAVITY: Diverticulosis is seen throughout the colon. No acute inflammatory hicks ges are appreciated. No mass is seen. APPENDIX: Not identified. PELVIS: No mass. No free fluid. Normal bladder. ABDOMINAL WALL: No masses. No hernias. BONES: No significant or acute findings. OTHER: No other significant finding. IMPRESSION: 1. Cholelithiasis. 2. Extensive diverticulosis coli. TECHNICAL DOCUMENTATION: JOB ID: [id number] Quality ID # [id number]: Final reports with documentation of one or more dose reduction techniques (e.g., Au tomated exposure control, adjustment of the mA and/or kV according to patient size, use of iterative reconstruction technique) 2010 [email or web address]- All Rights Reserved Reading location - IP/workstation name: [email or web address]
[2018-02-21] MEDS: ISOSORBIDE MONONITRATE 60 MG TAB.ER.24H PO SCH (21:42)
[2018-02-21] MEDS: BUDESONIDE/FORMOTEROL 80-4.5 MCG 60 PUFF/6.9 GM MDI IH SCH (21:43)
[2018-02-21] MEDS: FUROSEMIDE 40 MG TABLET PO SCH (21:43)
[2018-02-22 06:14] LABS: ABSOLUTE EOSINOPHILS # (AUTO) 0.1 10^3/uL (0.0-0.6); ABSOLUTE LYMPHOCYTES (AUTO) 1.5 10^3/uL (0.5-4.7); ABSOLUTE MONOCYTES (AUTO) 0.7 10^3/uL (0.1-1.4); ABSOLUTE NEUT (AUTO) 3.9 10^3/uL (1.7-8.2); BASOPHILS % (AUTO) 0.6 % (0-2); EOSINOPHILS % (AUTO) 1.8 % (0-6); HEMATOCRIT 38.4 % (37.9-51.0); HEMOGLOBIN 12.7 g/dL (13.5-17.0); LYMPHOCYTES % (AUTO) 24.4 % (13-45); MEAN CORPUSCULAR HGB CONC 32.9 g/dL (32.0-36.0); MEAN CORPUSCULAR VOLUME 94 fl (80-97); MONOCYTES % (AUTO) 11.6 % (3-13); PLATELET COUNT 102 10^3/uL (150-450); RED BLOOD COUNT 4.08 10^6/uL (4.35-5.55); RED CELL DISTRIBUTION WIDTH 15.4 % (11.5-14.0); SEGMENTED NEUTROPHILS % (AUTO) 61.6 % (42-78); TOTAL CELLS COUNTED % (AUTO) 100 %; WHITE BLOOD COUNT 6.3 10^3/uL (4.0-10.5)
[2018-02-22 06:38] LABS: ALANINE AMINOTRANSFERASE 30 U/L (21-72); ALBUMIN 3.4 g/dL (3.5-5.0); ALKALINE PHOSPHATASE 75 U/L (38-126); ANION GAP 12 (5-19); ASPARTATE AMINO TRANSFERASE 26 U/L (17-59); BILIRUBIN,DIRECT 0.3 mg/dL (0.0-0.4); BILIRUBIN,TOTAL 1.2 mg/dL (0.2-1.3); BLOOD UREA NITROGEN 16 mg/dL (7-20); CARBON DIOXIDE 32 mmol/L (22-30); CHLORIDE 100 mmol/L (98-107); GLUCOSE 101 mg/dL (75-110); POTASSIUM 3.8 mmol/L (3.6-5.0); SODIUM 143.7 mmol/L (137-145); TOTAL PROTEIN 6.3 g/dL (6.3-8.2)
[2018-02-22 06:47] LABS: LIPASE 2544.9 U/L (23-300)
[2018-02-22] MEDS: OXYCODONE-ACETAMINOPHEN 5-325 MG TABLET PO PRN ×2 (09:05→14:57)
[2018-02-22] MEDS: ISOSORBIDE MONONITRATE 60 MG TAB.ER.24H PO SCH (09:06)
--- NOTE | 2018-02-22 09:24 | PDOC PROGRESS REPORT ---
Subjective Progress Note for:: 02/22/18 Subjective:: Abdominal pain is improved. No shortness of breath and no chest pain. Reason For Visit: ACUTE PANCREATITIS Physical Exam Vital Signs: Temp Pulse Resp BP Pulse Ox 97.7 F 55 L 18 117/60 95 02/21/18 23:51 02/22/18 02:00 02/21/18 23:51 02/21/18 23:51 02/21/18 23:51 Intake & Output 02/21/18 02/22/18 02/23/18 06:59 06:59 06:59 Intake Total 200 1000 Output Total 1775 Balance 200 -775 Weight 93.1 kg 95.6 kg General appearance: PRESENT: no acute distress, cooperative Respiratory exam: PRESENT: clear to auscultation claire Cardiovascular exam: PRESENT: RRR GI/Abdominal exam: PRESENT: other - Soft, nondistended, very mild epigastric and right upper quadrant abdominal tenderness. No peritoneal signs. Results Laboratory Results: 02/22/18 05:08 02/22/18 05:08 02/22/18 02/22/18 05:08 05:08 WBC 6.3 RBC 4.08 L Hgb 12.7 L Hct 38.4 MCV 94 MCH 31.0 MCHC 32.9 RDW 15.4 H Plt Count 102 L Seg Neutrophils % 61.6 Lymphocytes % 24.4 Monocytes % 11.6 Eosinophils % 1.8 Basophils % 0.6 Absolute Neutrophils 3.9 Absolute Lymphocytes 1.5 Absolute Monocytes 0.7 Absolute Eosinophils 0.1 Absolute Basophils 0.0 Sodium 143.7 Potassium 3.8 Chloride 100 Carbon Dioxide 32 H Anion Gap 12 BUN 16 Creatinine 0.95 Est GFR ( Amer) > 60 Est GFR (Non-Af Amer) > 60 Glucose 101 Calcium 9.0 Total Bilirubin 1.2 AST 26 ALT 30 Alkaline Phosphatase 75 Total Protein 6.3 Albumin 3.4 L Lipase 2544.9 H Impressions: Acute Abdomen Series 02/20/18 15:08 IMPRESSION: NO RADIOGRAPHIC EVIDENCE FOR ACUTE ABDOMINAL DISEASE. Abdomen Ultrasound 02/20/18 18:29 IMPRESSION: Possible small gallstone versus polyp. The pancreas cannot be seen. Abdomen/Pelvis CT 02/21/18 00:00 IMPRESSION: 1. Cholelithiasis. 2. Extensive diverticulosis coli. Assessment & Plan - Diagnosis (1) Gallstone pancreatitis Is this a current diagnosis for this admission?: Yes Plan: Likely gallstone pancreatitis based on very high lipase values and gallstone. The pancreatitis itself appears to be a mild case. Will wait for his pancreatitis to settle down prior to laparoscopic cholecystectomy (lipase still high). Pending cardiology evaluation to evaluate his fitness for surgery. If there is prohibitive risk for surgery, we may be able to decrease his risk for recurrent pancreatitis with an ERCP and sphincterotomy instead. Keep patient at bowel rest for now.
--- NOTE | 2018-02-22 11:04 | Physician Advisory Note ---
Physician Advisor ProgressNote .: Pursuant to the plan for [facility], I have reviewed the medical record for this patient. Physician Advisor Statement: Cr was 1.44 on adm, subseq.ly <1.0 s/p rehydration. Please consider documenting, if you agree: 1. "ELOINA due to dehydration, resolved" (noted in H&P, so please either state it was ruled out, or continue to list it w/dx.s each day) Thanks! CK
[2018-02-22] MEDS: AMLODIPINE BESYLATE 5 MG TABLET PO SCH (11:37)
[2018-02-22] MEDS: PANTOPRAZOLE SODIUM 40 MG VIAL IV SCH ×2 (11:37→21:46)
[2018-02-22] MEDS: FUROSEMIDE 40 MG TABLET PO SCH ×2 (11:37→17:53)
[2018-02-22] MEDS: METOPROLOL TARTRATE 50 MG TABLET PO SCH ×2 (11:37→21:46)
[2018-02-22] MEDS: GUAIFENESIN 600 MG TABLET.SA PO SCH ×2 (11:37→21:47)
[2018-02-22] MEDS: PAROXETINE HCL 20 MG TABLET PO SCH (11:38)
[2018-02-22] MEDS: FLUTICASONE NASAL SPRAY 50 MCG/SPRY 120 SPRAY/16 GM NASL SCH (11:38)
[2018-02-22] MEDS: BUDESONIDE/FORMOTEROL 80-4.5 MCG 60 PUFF/6.9 GM MDI IH SCH ×2 (11:39→21:59)
--- NOTE | 2018-02-22 17:25 | PDOC PROGRESS REPORT ---
Subjective Progress Note for:: 02/22/18 Subjective:: The patient is complaining not being able to eat. No new complaints. Reason For Visit: ACUTE PANCREATITIS Physical Exam Vital Signs: Temp Pulse Resp BP Pulse Ox 98.3 F 64 18 120/66 96 02/22/18 11:22 02/22/18 14:00 02/22/18 11:22 02/22/18 11:22 02/22/18 11:22 Intake & Output 02/21/18 02/22/18 02/23/18 06:59 06:59 06:59 Intake Total 200 1000 Output Total 1775 Balance 200 -775 Weight 93.1 kg 95.6 kg General appearance: PRESENT: no acute distress, cooperative, well-developed, well-nourished Respiratory exam: PRESENT: other - No increased work of breathing. No wheezes, rales, or rhonchi. No tactile fremitus. Cardiovascular exam: PRESENT: RRR, other - No lateral PMI. No thrills.. ABSENT : gallop, rubs, systolic murmur Pulses: PRESENT: normal dorsalis pedis pul GI/Abdominal exam: PRESENT: guarding, hypoactive bowel sounds, other - Diffusely tender, slightly distended, hypoactive bowel sounds.. ABSENT: hernia , mass, organolmegaly Rectal exam: PRESENT: deferred Extremities exam: ABSENT: clubbing, joint swelling, tenderness Musculoskeletal exam: ABSENT: ambulatory, dislocation, normal inspection Neurological exam: PRESENT: alert, awake, oriented to person, oriented to place , oriented to time, oriented to situation, CN II-XII grossly intact. ABSENT: motor sensory deficit Psychiatric exam: PRESENT: appropriate affect, normal mood Skin exam: PRESENT: dry, intact, warm Results Laboratory Results: 02/22/18 05:08 02/22/18 05:08 02/22/18 02/22/18 02/22/18 05:08 05:08 13:53 WBC 6.3 RBC 4.08 L Hgb 12.7 L Hct 38.4 MCV 94 MCH 31.0 MCHC 32.9 RDW 15.4 H Plt Count 102 L Seg Neutrophils % 61.6 Lymphocytes % 24.4 Monocytes % 11.6 Eosinophils % 1.8 Basophils % 0.6 Absolute Neutrophils 3.9 Absolute Lymphocytes 1.5 Absolute Monocytes 0.7 Absolute Eosinophils 0.1 Absolute Basophils 0.0 Sodium 143.7 Potassium 3.8 Chloride 100 Carbon Dioxide 32 H Anion Gap 12 BUN 16 Creatinine 0.95 Est GFR ( Amer) > 60 Est GFR (Non-Af Amer) > 60 Glucose 101 Calcium 9.0 Total Bilirubin 1.2 AST 26 ALT 30 Alkaline Phosphatase 75 Total Protein 6.3 Albumin 3.4 L Lipase 2544.9 H Stool for White Cells NO WBCs SEEN Impressions: Acute Abdomen Series 02/20/18 15:08 IMPRESSION: NO RADIOGRAPHIC EVIDENCE FOR ACUTE ABDOMINAL DISEASE. Abdomen Ultrasound 02/20/18 18:29 IMPRESSION: Possible small gallstone versus polyp. The pancreas cannot be seen. Abdomen/Pelvis CT 02/21/18 00:00 IMPRESSION: 1. Cholelithiasis. 2. Extensive diverticulosis coli. Assessment & Plan - Diagnosis (1) Cholelithiasis and acute cholecystitis without obstruction Is this a current diagnosis for this admission?: Yes Plan: Plan is for cholecystectomy tomorrow pending the results of cardiology evaluation for pre-op clearance. (2) Acute pancreatitis Qualifiers: Pancreatitis type: biliary Is this a current diagnosis for this admission?: Yes Plan: Slowly improving. The patient's pain appears to have dissipated some. Possible cholecystectomy in am if cleared by cardiology. (3) Coronary artery disease Qualifiers: Coronary Disease-Associated Artery/Lesion type: [place] artery Associated angina: without angina Is this a current diagnosis for this admission?: Yes Plan: Awaiting pre-op clearance by cardiology for surgery tomorrow. Stable. (4) DVT prophylaxis Is this a current diagnosis for this admission?: Yes Plan: The patient is on Eliquis due to his history of pulmonary embolus. It is now being held as the patient may need to go for surgery. (5) Dyslipidemia Is this a current diagnosis for this admission?: Yes Plan: Statin. (6) Hypertension Is this a current diagnosis for this admission?: Yes Plan: Fair control on current regimen. Monitor. (7) Type 2 diabetes mellitus Qualifiers: Diabetes mellitus usp insulin use: without usp use Diabetes mellitus complication status: without complication Qualified Code(s): E11.9 - Type 2 diabetes mellitus without complications Is this a current diagnosis for this admission?: Yes Plan: The patient's glucoses appear to be well controlled currently. Hypoglycemia protocol. (8) History of pulmonary embolus (PE) Is this a current diagnosis for this admission?: Yes Plan: The patient takes Eliquis which is currently being held. - Time Time Spent with patient: 35 or more minutes Medications reviewed and adjusted accordingly: Yes
--- NOTE | 2018-02-22 19:27 | XCELERA REPORT ---
[address] [address] Transthoracic Echocardiogram Report Name: ISAURO CARREON Age: 77 yrs Gender: Male : 1940 Patient Status: Inpatient Patient Location: [facility]^A Study Date: 02/22/2018 04:55 PM Height: 70 in Weight: 210 lb BSA: 2.1 m2 Procedure: A complete two-dimensional transthoracic echocardiogram was performed (2D, M-mode, spectral and color flow Doppler). The study was technically difficult with many images being suboptimal in quality. Reason For Study: pre op Ordering Physician: KIMBER Performed By: Mariah Guevara Interpretation Summary LV EF is 50% Left ventricular systolic function is borderline reduced. LV diastolic function could not be adequately assessed. There is mild concentric left ventricular hypertrophy. The left ventricle is grossly normal size. Regional wall motion abnormalities cannot be excluded due to limited visualization. Borderline right ventricular enlargement. The right ventricular systolic function is normal. The right atrium is mildly dilated. The left atrial size is normal. There is a trace amount of mitral regurgitation There is no mitral valve stenosis. There is no aortic valve stenosis There is a mild amount of aortic regurgitation There is a trace or physiologic amount of tricuspid regurgitation There is mild pulmonary hypertension by echo Right ventricular systolic pressure is estimated to be elevated at 30-40mmHg. The aortic root is not well visualized but is probably normal size. The inferior vena cava was not well visualized There is no pericardial effusion. MMode/2D Measurements & Calculations RVDd: 3.0 cm LVIDd: 5.0 cm FS: 31.5 % LA dimension: 3.0 cm IVSd: 0.99 cm LVIDs: 3.4 cm EDV(Teich): 119.4 ml LVPWd: 1.0 cm ESV(Teich): 48.7 ml EF(Teich): 59.2 % LVOT diam: 2.1 cm LVOT area: 3.4 cm2 Doppler Measurements & Calculations MV E max ivana: MV P1/2t max ivana: LV V1 max PG: PA V2 max: 61.7 cm/sec 79.9 cm/sec 2.9 mmHg 105.9 cm/sec MV A max ivana: MV P1/2t: 79.1 msec LV V1 max: PA max P.5 mmHg 63.7 cm/sec MVA(P1/2t): 2.8 cm2 84.8 cm/sec MV E/A: 0.97 MV dec slope: 295.7 cm/sec2 MV dec time: 0.35 sec PI end-d ivana: TR max ivana: AV Vmax-pr_phl: MV P1/2t-pr_phl: 145.2 cm/sec 266.0 cm/sec 63.6 cm/sec 79.1 msec TR max P.3 mmHg Left Ventricle The left ventricle is grossly normal size. There is mild concentric left ventricular hypertrophy. Left ventricular systolic function is borderline reduced. LV EF is 50%. LV diastolic function could not be adequately assessed. Regional wall motion abnormalities cannot be excluded due to limited visualization. Right Ventricle Borderline right ventricular enlargement. There is normal right ventricular wall thickness. The right ventricular systolic function is normal. Atria The right atrium is mildly dilated. The left atrial size is normal. Mitral Valve The mitral valve is grossly normal. There is no mitral valve stenosis. There is a trace amount of mitral regurgitation. Aortic Valve The aortic valve is not well visualized secondary to technical limitations. There is no aortic valve stenosis. There is a mild amount of aortic regurgitation. Tricuspid Valve The tricuspid valve is not well visualized secondary to technical limitations. There is no tricuspid stenosis. There is a trace or physiologic amount of tricuspid regurgitation. There is mild pulmonary hypertension by echo. Right ventricular systolic pressure is estimated to be elevated at 30-40mmHg. Pulmonic Valve The pulmonic valve is not well visualized. There is a mild amount of pulmonic regurgitation. Great Vessels The aortic root is not well visualized but is probably normal size. The inferior vena cava was not well visualized. Effusions There is no pericardial effusion. : TABITHA^RABIA^CIELO > Rabia Bajwa
--- NOTE | 2018-02-22 23:14 | Progress Note ---
Provider Note Provider Note: Patient seen and examined. No chest pain, No SOB. No clinical CHF. Patient considered acceptable candidate for surgery. Currently in stable cardiac condition. Echo report reviewed.
[2018-02-23] MEDS: NORMAL SALINE 1000 ML 1,000 ML IV PRN ×2 (00:20→14:41)
[2018-02-23] MEDS: METRONIDAZOLE 500 MG/NS RTU 500 MG/100 ML RTUPB IV SCH ×3 (05:31→22:35)
[2018-02-23 06:13] LABS: ABSOLUTE EOSINOPHILS # (AUTO) 0.2 10^3/uL (0.0-0.6); ABSOLUTE LYMPHOCYTES (AUTO) 1.4 10^3/uL (0.5-4.7); ABSOLUTE MONOCYTES (AUTO) 0.8 10^3/uL (0.1-1.4); ABSOLUTE NEUT (AUTO) 3.4 10^3/uL (1.7-8.2); BASOPHILS % (AUTO) 0.7 % (0-2); EOSINOPHILS % (AUTO) 2.6 % (0-6); HEMATOCRIT 36.5 % (37.9-51.0); HEMOGLOBIN 12.2 g/dL (13.5-17.0); LYMPHOCYTES % (AUTO) 24.6 % (13-45); MEAN CORPUSCULAR HEMOGLOBIN 31.2 pg (27.0-33.4); MEAN CORPUSCULAR HGB CONC 33.5 g/dL (32.0-36.0); MEAN CORPUSCULAR VOLUME 93 fl (80-97); PLATELET COUNT 100 10^3/uL (150-450); RED BLOOD COUNT 3.91 10^6/uL (4.35-5.55); RED CELL DISTRIBUTION WIDTH 15.5 % (11.5-14.0); SEGMENTED NEUTROPHILS % (AUTO) 59.1 % (42-78); TOTAL CELLS COUNTED % (AUTO) 100 %; WHITE BLOOD COUNT 5.8 10^3/uL (4.0-10.5)
[2018-02-23 06:35] LABS: ALANINE AMINOTRANSFERASE 26 U/L (21-72); ALBUMIN 3.4 g/dL (3.5-5.0); ALKALINE PHOSPHATASE 74 U/L (38-126); ANION GAP 12 (5-19); ASPARTATE AMINO TRANSFERASE 22 U/L (17-59); BILIRUBIN,DIRECT 0.4 mg/dL (0.0-0.4); BILIRUBIN,TOTAL 1.3 mg/dL (0.2-1.3); BLOOD UREA NITROGEN 15 mg/dL (7-20); CARBON DIOXIDE 29 mmol/L (22-30); CHLORIDE 102 mmol/L (98-107); GLUCOSE 97 mg/dL (75-110); LIPASE 694.3 U/L (23-300); POTASSIUM 4.1 mmol/L (3.6-5.0); SODIUM 143.4 mmol/L (137-145); TOTAL PROTEIN 6.2 g/dL (6.3-8.2)
[2018-02-23] MEDS: ISOSORBIDE MONONITRATE 60 MG TAB.ER.24H PO SCH (08:32)
[2018-02-23] MEDS: OXYCODONE-ACETAMINOPHEN 5-325 MG TABLET PO PRN (09:56)
[2018-02-23] MEDS: METOPROLOL TARTRATE 50 MG TABLET PO SCH ×2 (10:16→22:42)
[2018-02-23] MEDS: AMLODIPINE BESYLATE 5 MG TABLET PO SCH (10:16)
[2018-02-23] MEDS: PAROXETINE HCL 20 MG TABLET PO SCH (10:17)
[2018-02-23] MEDS: GUAIFENESIN 600 MG TABLET.SA PO SCH ×2 (10:17→22:35)
[2018-02-23] MEDS: FUROSEMIDE 40 MG TABLET PO SCH ×2 (10:17→17:36)
[2018-02-23] MEDS: BUDESONIDE/FORMOTEROL 80-4.5 MCG 60 PUFF/6.9 GM MDI IH SCH ×2 (10:18→22:35)
[2018-02-23] MEDS: PANTOPRAZOLE SODIUM 40 MG VIAL IV SCH (10:18)
[2018-02-23] MEDS: FLUTICASONE NASAL SPRAY 50 MCG/SPRY 120 SPRAY/16 GM NASL SCH (10:18)
--- NOTE | 2018-02-23 13:02 | PDOC PROGRESS REPORT ---
Subjective Progress Note for:: 02/23/18 Subjective:: epigasric and RUQ pains Reason For Visit: ACUTE PANCREATITIS Physical Exam Vital Signs: Temp Pulse Resp BP Pulse Ox 97.7 F 59 L 16 127/77 H 95 02/23/18 12:28 02/23/18 12:28 02/23/18 12:28 02/23/18 12:28 02/23/18 12:28 Intake & Output 02/22/18 02/23/18 02/24/18 06:59 06:59 06:59 Intake Total 1000 620 Output Total 1775 1260 Balance -775 -640 Weight 95.6 kg 95.8 kg Exam: abd is soft with tenderness along epigastric and RUQ areas Results Laboratory Results: 02/23/18 05:29 02/23/18 05:29 02/22/18 02/23/18 02/23/18 13:53 05:29 05:29 WBC 5.8 RBC 3.91 L Hgb 12.2 L Hct 36.5 L MCV 93 MCH 31.2 MCHC 33.5 RDW 15.5 H Plt Count 100 L Seg Neutrophils % 59.1 Lymphocytes % 24.6 Monocytes % 13.0 Eosinophils % 2.6 Basophils % 0.7 Absolute Neutrophils 3.4 Absolute Lymphocytes 1.4 Absolute Monocytes 0.8 Absolute Eosinophils 0.2 Absolute Basophils 0.0 Sodium 143.4 Potassium 4.1 Chloride 102 Carbon Dioxide 29 Anion Gap 12 BUN 15 Creatinine 1.09 Est GFR ( Amer) > 60 Est GFR (Non-Af Amer) > 60 Glucose 97 Calcium 9.0 Total Bilirubin 1.3 AST 22 ALT 26 Alkaline Phosphatase 74 Total Protein 6.2 L Albumin 3.4 L Lipase 694.3 H Stool for White Cells NO WBCs SEEN Impressions: Acute Abdomen Series 02/20/18 15:08 IMPRESSION: NO RADIOGRAPHIC EVIDENCE FOR ACUTE ABDOMINAL DISEASE. Abdomen Ultrasound 02/20/18 18:29 IMPRESSION: Possible small gallstone versus polyp. The pancreas cannot be seen. Abdomen/Pelvis CT 02/21/18 00:00 IMPRESSION: 1. Cholelithiasis. 2. Extensive diverticulosis coli. Assessment & Plan - Time Time Spent with patient: 15-24 minutes - Plan Summary Plan Summary: Will repeat lipase CMP in am Possible lap brandon tomorrow if Lipase continues to go go down
--- NOTE | 2018-02-23 16:30 | PDOC PROGRESS REPORT ---
Subjective Progress Note for:: 02/23/18 Subjective:: The patient is still having diarrhea, although less than before Flagyl. Monitor electrolytes. No other complaints. Reason For Visit: ACUTE PANCREATITIS Physical Exam Vital Signs: Temp Pulse Resp BP Pulse Ox 97.7 F 56 L 16 127/77 H 95 02/23/18 12:28 02/23/18 14:00 02/23/18 12:28 02/23/18 12:28 02/23/18 12:28 Intake & Output 02/22/18 02/23/18 02/24/18 06:59 06:59 06:59 Intake Total 9052 579 9033 Output Total 1775 1260 5 Balance -775 -640 2125 Weight 95.6 kg 95.8 kg General appearance: PRESENT: no acute distress, cooperative, well-developed, well-nourished Respiratory exam: PRESENT: other - No increased work of breathing. No wheezes, rales, or rhonchi. No tactile fremitus. Cardiovascular exam: PRESENT: RRR, other - No lateral PMI. No thrills.. ABSENT : gallop, rubs, systolic murmur Pulses: PRESENT: normal dorsalis pedis pul GI/Abdominal exam: PRESENT: normal bowel sounds, soft, tenderness. ABSENT: hernia, mass, organolmegaly Rectal exam: PRESENT: deferred Extremities exam: ABSENT: clubbing, pedal edema, tenderness Musculoskeletal exam: ABSENT: deformity, dislocation, normal inspection Neurological exam: PRESENT: alert, awake, oriented to person, oriented to place , oriented to time, oriented to situation Psychiatric exam: PRESENT: appropriate affect, normal mood Skin exam: PRESENT: dry, intact, warm Results Laboratory Results: 02/23/18 05:29 02/23/18 05:29 02/22/18 02/23/18 02/23/18 13:53 05:29 05:29 WBC 5.8 RBC 3.91 L Hgb 12.2 L Hct 36.5 L MCV 93 MCH 31.2 MCHC 33.5 RDW 15.5 H Plt Count 100 L Seg Neutrophils % 59.1 Lymphocytes % 24.6 Monocytes % 13.0 Eosinophils % 2.6 Basophils % 0.7 Absolute Neutrophils 3.4 Absolute Lymphocytes 1.4 Absolute Monocytes 0.8 Absolute Eosinophils 0.2 Absolute Basophils 0.0 Sodium 143.4 Potassium 4.1 Chloride 102 Carbon Dioxide 29 Anion Gap 12 BUN 15 Creatinine 1.09 Est GFR ( Amer) > 60 Est GFR (Non-Af Amer) > 60 Glucose 97 Calcium 9.0 Total Bilirubin 1.3 AST 22 ALT 26 Alkaline Phosphatase 74 Total Protein 6.2 L Albumin 3.4 L Lipase 694.3 H Stool for White Cells NO WBCs SEEN Impressions: Acute Abdomen Series 02/20/18 15:08 IMPRESSION: NO RADIOGRAPHIC EVIDENCE FOR ACUTE ABDOMINAL DISEASE. Abdomen Ultrasound 02/20/18 18:29 IMPRESSION: Possible small gallstone versus polyp. The pancreas cannot be seen. Abdomen/Pelvis CT 02/21/18 00:00 IMPRESSION: 1. Cholelithiasis. 2. Extensive diverticulosis coli. Assessment & Plan - Diagnosis (1) Cholelithiasis and acute cholecystitis without obstruction Is this a current diagnosis for this admission?: Yes Plan: Plan is for cholecystectomy. The patient has been cleared for surgery by cardiology. (2) Acute pancreatitis Qualifiers: Pancreatitis type: biliary Is this a current diagnosis for this admission?: Yes Plan: Cholecystectomy in am. The patient has been cleared by cardiology. (3) Coronary artery disease Qualifiers: Coronary Disease-Associated Artery/Lesion type: [place] artery Associated angina: without angina Is this a current diagnosis for this admission?: Yes Plan: The patient has been cleared for surgery by Cardiology. (4) DVT prophylaxis Is this a current diagnosis for this admission?: Yes Plan: The patient is on Eliquis due to his history of pulmonary embolus. It is now being held as the patient is to go for surgery (5) Dyslipidemia Is this a current diagnosis for this admission?: Yes Plan: Statin. (6) Hypertension Qualifiers: Hypertension type: essential hypertension Qualified Code(s): I10 - Essential (primary) hypertension Is this a current diagnosis for this admission?: Yes Plan: Fair control on current regimen. Monitor. (7) Type 2 diabetes mellitus Qualifiers: Diabetes mellitus nursing home insulin use: without nursing home use Diabetes mellitus complication status: without complication Qualified Code(s): E11.9 - Type 2 diabetes mellitus without complications Is this a current diagnosis for this admission?: Yes Plan: The patient's glucoses appear to be well controlled currently. Hypoglycemia protocol. (8) History of pulmonary embolus (PE) Is this a current diagnosis for this admission?: Yes Plan: The patient takes Eliquis which is currently being held. (9) C. difficile colitis Is this a current diagnosis for this admission?: Yes Plan: Receiving Flagyl. Still having diarrhea, although less. - Time Time Spent with patient: 25-34 minutes Medications reviewed and adjusted accordingly: Yes
[2018-02-24 04:39] LABS: ABSOLUTE EOSINOPHILS # (AUTO) 0.2 10^3/uL (0.0-0.6); ABSOLUTE LYMPHOCYTES (AUTO) 1.7 10^3/uL (0.5-4.7); ABSOLUTE MONOCYTES (AUTO) 0.7 10^3/uL (0.1-1.4); BASOPHILS % (AUTO) 0.8 % (0-2); EOSINOPHILS % (AUTO) 3.4 % (0-6); HEMATOCRIT 37.2 % (37.9-51.0); HEMOGLOBIN 12.4 g/dL (13.5-17.0); MEAN CORPUSCULAR HEMOGLOBIN 31.1 pg (27.0-33.4); MEAN CORPUSCULAR HGB CONC 33.3 g/dL (32.0-36.0); MEAN CORPUSCULAR VOLUME 94 fl (80-97); MONOCYTES % (AUTO) 12.7 % (3-13); PLATELET COUNT 103 10^3/uL (150-450); RED BLOOD COUNT 3.97 10^6/uL (4.35-5.55); RED CELL DISTRIBUTION WIDTH 15.1 % (11.5-14.0); SEGMENTED NEUTROPHILS % (AUTO) 53.1 % (42-78); TOTAL CELLS COUNTED % (AUTO) 100 %; WHITE BLOOD COUNT 5.7 10^3/uL (4.0-10.5)
[2018-02-24 04:57] LABS: ALANINE AMINOTRANSFERASE 24 U/L (21-72); ALBUMIN 3.3 g/dL (3.5-5.0); ALKALINE PHOSPHATASE 69 U/L (38-126); ANION GAP 10 (5-19); ASPARTATE AMINO TRANSFERASE 20 U/L (17-59); BILIRUBIN,DIRECT 0.3 mg/dL (0.0-0.4); BILIRUBIN,TOTAL 1.1 mg/dL (0.2-1.3); BLOOD UREA NITROGEN 13 mg/dL (7-20); CALCIUM 8.6 mg/dL (8.4-10.2); CARBON DIOXIDE 30 mmol/L (22-30); CHLORIDE 102 mmol/L (98-107); GLUCOSE 101 mg/dL (75-110); POTASSIUM 3.9 mmol/L (3.6-5.0); SODIUM 142.4 mmol/L (137-145); TOTAL PROTEIN 6.1 g/dL (6.3-8.2)
[2018-02-24] MEDS: NORMAL SALINE 1000 ML 1,000 ML IV PRN ×2 (05:11→17:30)
[2018-02-24] MEDS: METRONIDAZOLE 500 MG/NS RTU 500 MG/100 ML RTUPB IV SCH ×3 (05:11→22:28)
[2018-02-24] MEDS: ISOSORBIDE MONONITRATE 60 MG TAB.ER.24H PO SCH (08:17)
--- NOTE | 2018-02-24 10:03 | PDOC PROGRESS REPORT ---
Subjective Progress Note for:: 02/24/18 Subjective:: Having diarrhea. Serum + for C Diff on IV Flagyl Reason For Visit: ACUTE PANCREATITIS Physical Exam Vital Signs: Temp Pulse Resp BP Pulse Ox 98.4 F 56 L 16 159/93 H 96 02/24/18 07:15 02/24/18 07:15 02/24/18 07:15 02/24/18 07:15 02/24/18 07:15 Intake & Output 02/23/18 02/24/18 02/25/18 06:59 06:59 06:59 Intake Total 620 6362 Output Total 1260 1380 Balance -640 4982 Weight 95.8 kg 95.6 kg Exam: Abd is soft with minimal tenderness Results Laboratory Results: 02/24/18 03:43 02/24/18 03:43 02/24/18 02/24/18 03:43 03:43 WBC 5.7 RBC 3.97 L Hgb 12.4 L Hct 37.2 L MCV 94 MCH 31.1 MCHC 33.3 RDW 15.1 H Plt Count 103 L Seg Neutrophils % 53.1 Lymphocytes % 30.0 Monocytes % 12.7 Eosinophils % 3.4 Basophils % 0.8 Absolute Neutrophils 3.0 Absolute Lymphocytes 1.7 Absolute Monocytes 0.7 Absolute Eosinophils 0.2 Absolute Basophils 0.0 Sodium 142.4 Potassium 3.9 Chloride 102 Carbon Dioxide 30 Anion Gap 10 BUN 13 Creatinine 1.04 Est GFR ( Amer) > 60 Est GFR (Non-Af Amer) > 60 Glucose 101 Calcium 8.6 Total Bilirubin 1.1 AST 20 ALT 24 Alkaline Phosphatase 69 Total Protein 6.1 L Albumin 3.3 L Lipase 400.0 H Impressions: Acute Abdomen Series 02/20/18 15:08 IMPRESSION: NO RADIOGRAPHIC EVIDENCE FOR ACUTE ABDOMINAL DISEASE. Abdomen Ultrasound 02/20/18 18:29 IMPRESSION: Possible small gallstone versus polyp. The pancreas cannot be seen. Abdomen/Pelvis CT 02/21/18 00:00 IMPRESSION: 1. Cholelithiasis. 2. Extensive diverticulosis coli. Assessment & Plan - Time Time Spent with patient: 15-24 minutes - Inpatient Certification Medical Necessity: Need For IV Fluids, Need for IV Antibiotics, Need for Surgery - Plan Summary Plan Summary: Continue IV Flagyl OK to have full liquids Recheck Lipase,BMP in am
[2018-02-24] MEDS: ONDANSETRON HCL INJ/PF 4 MG/2 ML SDV IV PRN (10:18)
[2018-02-24] MEDS: AMLODIPINE BESYLATE 5 MG TABLET PO SCH (10:50)
[2018-02-24] MEDS: PAROXETINE HCL 20 MG TABLET PO SCH (10:50)
[2018-02-24] MEDS: FUROSEMIDE 40 MG TABLET PO SCH ×2 (10:53→17:27)
[2018-02-24] MEDS: METOPROLOL TARTRATE 50 MG TABLET PO SCH (10:53)
[2018-02-24] MEDS: GUAIFENESIN 600 MG TABLET.SA PO SCH ×2 (10:53→22:29)
[2018-02-24] MEDS: FLUTICASONE NASAL SPRAY 50 MCG/SPRY 120 SPRAY/16 GM NASL SCH (10:54)
[2018-02-24] MEDS: BUDESONIDE/FORMOTEROL 80-4.5 MCG 60 PUFF/6.9 GM MDI IH SCH ×2 (10:54→22:29)
--- NOTE | 2018-02-24 12:20 | EKG REPORT ---
SEVERITY:- ABNORMAL ECG - SINUS RHYTHM MULTIFORM VENTRICULAR PREMATURE COMPLEXES FIRST DEGREE AV BLOCK NONSPECIFIC IVCD WITH LAD : Confirmed by: Estephanie Salazar MD 24-Feb-2018 12:19:34
[2018-02-24] MEDS: INSULIN LISPRO 100 UNIT/ML 3 ML VIAL SUBCUT PRN (13:43)
--- NOTE | 2018-02-24 15:40 | PROGRESS NOTE E ---
Progress Note NAME: ISAURO CARREON : 1940 AGE: 77Y DATE: 02/24/2018 ROOM: 426 SUBJECTIVE: Note that the patient denies any chest pain or discomfort. There is no PND, orthopnea, leg edema. There is no palpitations or arrhythmia seen. There are no TIA or CVA symptoms. The patient denies abdominal pain but has diarrhea. OBJECTIVE: GENERAL: On examination the patient is mildly obese but well-groomed in no acute distress. VITAL SIGNS: He is afebrile with a temperature of 98.4 degrees Fahrenheit, pulse is 64 beats per minute, blood pressure 120/68, respirations are 15 per minute, O2 saturations are 96% on room air. HEENT: Head is atraumatic, normocephalic. Eyes: Pupils are equal, round and regular, reactive to light and accommodation. Extraocular movements are normal. There is no conjunctival pallor. There is no scleral icterus. ENT is negative. NECK: Supple. There is no JVD. There is no lymphadenopathy. There is no goiter. Carotids are equal. There is no bruit. Trachea is central. LUNGS: Clear to auscultation and percussion. HEART: S1, S2 is heard. There is no S3 gallop. There is no S4 gallop. There is a systolic murmur in the left sternal border and the apex. There is no rub. ABDOMEN: Soft, obese, nontender. There is no hepatosplenomegaly. Bowel sounds are well heard. There are no tender areas or masses. There is no rebound, guarding, or rigidity. EXTREMITIES: Femorals are diminished. There are no femoral bruits. Leg pulses are diminished. There is no pedal edema. There is no cyanosis or clubbing. There is no DVT or cellulitis. There is no calf tenderness. CENTRAL NERVOUS SYSTEM: The patient is conscious, awake, alert and oriented x3 with no focal deficits. PSYCHIATRIC: The patient's judgment and insight are intact. His affect is seems to be slightly withdrawn. DIAGNOSTIC STUDIES: The patient's EKG shows sinus rhythm with PVCs, first degree AV block, nonspecific IVCD with left axis deviation, possible left anterior fascicular block. The patient's white count is 5700, hemoglobin is 12.4, hematocrit is 37.2, platelet count is 103,000. The patient's stool for white cells was negative for WBC in the stool done on 02/22/2018. The patient's sodium is 142.4, potassium 3.9, chloride 102, CO2 is 30. The patient's BUN is 13, creatinine is 1.04, GFR is greater than 60, glucose is 101, calcium is 8.6. His liver function tests are normal. His lipase was elevated, it has come down to 400 and on 02/23, it was 694.3. His albumin is low at 3.3, total protein is low at 6.1. IMPRESSION: 1. ACUTE CHOLECYSTITIS WITH CHOLELITHIASIS. The patient for surgery tomorrow. Note that the patient will be an acceptable cardiac risk for this procedure. 2. PANCREATITIS, MOST LIKELY SECONDARY TO GALLSTONES PANCREATITIS. Lipase is coming down. The patient is asymptomatic. 3. CORONARY ARTERY DISEASE, HISTORY OF CORONARY ARTERY BYPASS GRAFT SURGERY. Stable with no anginal symptoms. The patient's troponin I on 02/20/2018 was negative at 0.029. 4. HYPERTENSION. 5. CARDIOMYOPATHY WITH MILDLY REDUCED LV EJECTION FRACTION. 6. COPD. 7. DEPRESSION. RECOMMENDATION: Cardiac status is stable. The patient will be an acceptable risk for procedure. Postoperatively we will continue to monitor the patient on telemetry and get serial EKGs and cardiac enzymes. Watch the patient's output congestive heart failure as he has cardiomyopathy, he has borderline reduced LV ejection fraction of 50%. TIME SPENT: Note 35 minutes spent on this patient with more than 50% of the time spent on direct patient care. Medical decision making is of mild complexity. We will follow with you. This was discussed with the patient. CODE STATUS: Note that the patient is a full a code. His daughter is the surrogate healthcare decision maker. DICTATING PHYSICIAN: TIKA HERNÁNDEZ M.D. [id number] PHY#: [id number] ID: [id number] JOB#: [id number] ACCT: [id number] cc: >
--- NOTE | 2018-02-24 17:30 | PDOC PROGRESS REPORT ---
Subjective Progress Note for:: 02/24/18 Subjective:: The patient's diarrhea is not subsiding. Reason For Visit: ACUTE PANCREATITIS Physical Exam Vital Signs: Temp Pulse Resp BP Pulse Ox 98.0 F 30 L 15 116/56 L 95 02/24/18 15:23 02/24/18 15:23 02/24/18 15:23 02/24/18 15:23 02/24/18 15:23 Intake & Output 02/23/18 02/24/18 02/25/18 06:59 06:59 06:59 Intake Total 620 6362 Output Total 1260 1380 Balance -640 4982 Weight 95.8 kg 95.6 kg General appearance: PRESENT: no acute distress, cooperative Respiratory exam: PRESENT: other - No increased work of breathing. No wheezes, rales, or rhonchi. Cardiovascular exam: PRESENT: RRR. ABSENT: gallop, rubs, systolic murmur Pulses: PRESENT: other - Diminished distal pulses. GI/Abdominal exam: PRESENT: distended - slightly, normal bowel sounds, soft. ABSENT: hernia, organolmegaly, tenderness Extremities exam: ABSENT: clubbing, pedal edema, tenderness Musculoskeletal exam: PRESENT: normal inspection. ABSENT: deformity, dislocation, tenderness Neurological exam: PRESENT: alert, awake, oriented to person, oriented to place , oriented to time, oriented to situation, CN II-XII grossly intact. ABSENT: motor sensory deficit Skin exam: PRESENT: dry, intact, warm Results Laboratory Results: 02/24/18 03:43 02/24/18 03:43 02/24/18 02/24/18 03:43 03:43 WBC 5.7 RBC 3.97 L Hgb 12.4 L Hct 37.2 L MCV 94 MCH 31.1 MCHC 33.3 RDW 15.1 H Plt Count 103 L Seg Neutrophils % 53.1 Lymphocytes % 30.0 Monocytes % 12.7 Eosinophils % 3.4 Basophils % 0.8 Absolute Neutrophils 3.0 Absolute Lymphocytes 1.7 Absolute Monocytes 0.7 Absolute Eosinophils 0.2 Absolute Basophils 0.0 Sodium 142.4 Potassium 3.9 Chloride 102 Carbon Dioxide 30 Anion Gap 10 BUN 13 Creatinine 1.04 Est GFR ( Amer) > 60 Est GFR (Non-Af Amer) > 60 Glucose 101 Calcium 8.6 Total Bilirubin 1.1 AST 20 ALT 24 Alkaline Phosphatase 69 Total Protein 6.1 L Albumin 3.3 L Lipase 400.0 H Impressions: Acute Abdomen Series 02/20/18 15:08 IMPRESSION: NO RADIOGRAPHIC EVIDENCE FOR ACUTE ABDOMINAL DISEASE. Abdomen Ultrasound 02/20/18 18:29 IMPRESSION: Possible small gallstone versus polyp. The pancreas cannot be seen. Abdomen/Pelvis CT 02/21/18 00:00 IMPRESSION: 1. Cholelithiasis. 2. Extensive diverticulosis coli. Assessment & Plan - Diagnosis (1) Cholelithiasis and acute cholecystitis without obstruction Is this a current diagnosis for this admission?: Yes Plan: Plan is for cholecystectomy. The patient has been cleared for surgery by cardiology. Surgery when lipase delines further, as per general surgery. (2) Acute pancreatitis Is this a current diagnosis for this admission?: Yes Plan: Cholecystectomy in am. The patient has been cleared by cardiology. (3) Coronary artery disease Is this a current diagnosis for this admission?: Yes Plan: The patient has been cleared for surgery by Cardiology. (4) DVT prophylaxis Is this a current diagnosis for this admission?: Yes (5) Dyslipidemia Is this a current diagnosis for this admission?: Yes (6) Hypertension Qualifiers: Qualified Code(s): I10 - Essential (primary) hypertension Is this a current diagnosis for this admission?: Yes Plan: Fair control on current regimen. Monitor. (7) Type 2 diabetes mellitus Qualifiers: Qualified Code(s): E11.9 - Type 2 diabetes mellitus without complications Is this a current diagnosis for this admission?: Yes Plan: The patient's glucoses appear to be well controlled currently. Hypoglycemia protocol. (8) History of pulmonary embolus (PE) Is this a current diagnosis for this admission?: Yes Plan: The patient takes Eliquis which is currently being held. (9) C. difficile colitis Is this a current diagnosis for this admission?: Yes Plan: Receiving Flagyl. Diarrhea has not slowed down. I will add PO Vancomycin. - Time Time Spent with patient: 25-34 minutes Medications reviewed and adjusted accordingly: Yes
--- NOTE | 2018-02-24 17:31 | PDOC CONSULTATION ---
Consultation Consult Date: 02/22/18 Attending physician:: NOLA SILVA Consult reason:: Pre op History of Present Illness Admission Date/PCP: 02/20/18 21:06 LEÓN MCFARLAND DO Patient complains of: Abdominal discomfort History of Present Illness: ISAURO CARREON is a 77 year old gentleman with history of multiple medical problems that will be mentioned below presented to the emergency room with acute onset of recurrent nausea and vomiting with associated epigastric abdominal pain and mild diarrhea with loose bowel movements. He ate [place] food on Monday night which he believes contributed to his vomiting. He admitted to drinking 2 glasses of vodka on Monday night he has been getting chest pain with vomiting but has been chest pain-free in the emergency room. Over the last couple of days he had about 8 episodes of vomiting. It has been black colored. He has been on Eliquis for atrial fibrillation and history of CVAs. He admitted to intermittent dry cough and raw throat feeling with minimal postnasal drip. He denies any fever or chills. No dysuria, oliguria, hematuria or flank pain. No headache, dizziness or blurred vision. Upon presentation to the emergency room is vital signs were within normal as listed except for elevated blood pressure 163/83 that was 120/74 earlier. His labs were remarkable for elevated BUN of 37 and creatinine 1.44 with CO2 31 and chloride of 94. Blood glucose was 140 and his platelets were low at 135. LFTs were within normal. His serum lipase came significantly elevated at 1103. His PT was 15.8 and INR was 1.2 and magnesium level was low at 1.5. LDH was 211 and his amylase was 400. Repeat lipase levels came back 1470.8. He was given 4 mg of Zofran as well as hydration with IV normal saline. Acute abdominal series came back negative for acute abnormalities. His EKG showed normal sinus rhythm with a rate of 66 with PVC and nonspecific intraventricular conduction delay. The patient will be admitted to a medically monitored bed for further evaluation and management. This history obtained by the hospitalist was reviewed and confirmed with the patient. Patient actually denied any chest discomfort to me. He claims that his activity level is on the low side but he can get around pretty well. He denied any sustained palpitations, syncope, near syncope. He denied any shortness of breath at rest, PND, orthopnea. He does have shortness of breath on moderate exertion. Patient denied any significant problems with prior surgery Past Medical History Cardiac Medical History: Reports: Coronary Artery Disease, Myocardial Infarction - 2007, Hyperlipidema, Hypertension, Pulmonary Embolism - x3 last 2007, on Eliquis Pulmonary Medical History: Reports: Asthma, Chronic Obstructive Pulmonary Disease (COPD), Tuberculosis Endocrine Medical History: Reports: Diabetes Mellitus Type 2 Psychiatric Medical History: Reports: Depression Past Surgical History Past Surgical History: Reports: Coronary Artery Bypass Graft - 2006 Social History Information Source: Patient Smoking Status: Former Smoker Frequency of Alcohol Use: Heavy Hx Recreational Drug Use: No Hx Prescription Drug Abuse: No - Advance Directive Resuscitation Status: Full Code Surrogate healthcare decision maker:: Surrogate decision maker is Elizabeth carreon, phone #[phone] Family History Family History: CVA Parental Family History Reviewed: Yes Children Family History Reviewed: Yes Sibling(s) Family History Reviewed.: Yes Medication/Allergy Home Medications: Albuterol Sulfate [Proair Hfa Inhalation Aerosol 8.5 gm Mdi] 1 puff IH Q4HP PRN 02/21/18 Amlodipine Besylate [Norvasc 5 mg Tablet] 5 mg PO DAILY 02/21/18 Apixaban [Eliquis 5 mg Tablet] 5 mg PO BID 02/21/18 Budesonide/Formoterol Fumarate [Symbicort 80-4.5 Mcg Inhaler] 2 puff IH BID 03/03 Ergocalciferol (Vitamin D2) [Vitamin D2] 50,000 unit PO Q7D 02/21/18 Furosemide [Lasix 40 mg Tablet] 40 mg PO BID 02/21/18 Isosorbide Mononitrate [Imdur 60 mg Tablet.er] 60 mg PO QAM 02/21/18 Metoprolol Tartrate [Lopressor 50 mg Tablet] 50 mg PO Q12H 02/21/18 Allergies/Adverse Reactions: ciprofloxacin [From Cipro] Allergy (Verified 05/18/15 11:06) enalapril maleate [From Vasotec] Allergy (Verified 05/18/15 11:06) niacin [From Niaspan] Allergy (Verified 05/18/15 11:06) Review of Systems Review of Systems: Please see history of present illness and past medical history as wall. Constitutional: No fever or chills reported. Head : No recent chronic headaches, recent head injury. Eyes: No recent eye pain, diplopia, redness, discharge, acute visual changes. Ears: No recent chronic ear pain, acute hearing loss, ear discharge. Oral cavity: No recent ulcerations, bleeding, oral cavity discomfort. Neck: No recent acute neck pain reported. Hematologic: No recent easy bruising or bleeding. Lymphatic: No recent lymph node enlargement reported. Cardiovascular system review: See history of present illness. Respiratory system review: No hemoptysis or blood clots in the lungs reported. Mild Shortness of breath on exertion Gastrointestinal system review: Abdominal discomfort along with nausea and vomiting.. Genitourinary system review: No recent acute or chronic hematuria, flank pain, UTI etc. reported. Skin system review: Negative for any recent abnormal bruising, no rash, no pruritus reported. Neurologic: History of prior stroke but denies seizure disorder. Psychologic: No history of major psychosis or major depression reported. Mentions of minor depression. Musculoskeletal: Minor aches and pains reported. No acute joint swelling reported. Endocrine: No recent polyuria, polydipsia, recent heat or cold intolerance. Physical Exam Vital Signs: Temp Pulse Resp BP Pulse Ox 98.3 F 61 17 120/78 94 02/22/18 19:37 02/22/18 19:37 02/22/18 19:37 02/22/18 19:37 02/22/18 19:37 Intake & Output 02/21/18 02/22/18 02/23/18 06:59 06:59 06:59 Intake Total 200 1000 Output Total 1775 Balance 200 -775 Weight 93.1 kg 95.6 kg Exam: GENERAL: well-nourished and in no acute distress. Alert and oriented x3 HEAD: Atraumatic, normocephalic. EYES: Pupils equal round and reactive to light, extraocular movements intact, sclera anicteric, conjunctiva are normal. ENT: TMs normal, nares patent, oropharynx clear without exudates. Moist mucous membranes. No oral ulcerations or bleeding gums noted NECK: supple without lymphadenopathy. Trachea is central. No cervical or axillary lymphadenopathy noted. Carotids are 2+, JVD WNL LUNGS: Respiration seems nonlabored, no significant accessory muscle action noted. Breath sounds clear to auscultation bilaterally and equal noted. No wheezes rales or rhonchi noted. No significant dullness noted on percussion. CHEST: Palpation of the chest wall shows no significant chest wall tenderness. 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 ABDOMEN: Soft, minimal epigastric tenderness appreciated, normoactive bowel sounds. No guarding, no rebound. No rigidity noted . No masses appreciated. EXTREMITIES: Pedal pulses are 1-2+, no calf tenderness noted. No clubbing or cyanosis. negative pedal edema noted NEUROLOGICAL: Focused neurological exam showed no significant neurologic deficit. Normal speech, no focal weakness appreciated. PSYCH: Normal mood, normal affect. Judgment and insight within normal limits. SKIN: No significant ecchymosis, skin is noted to be warm. MUSCULOSKELETAL EXAM: No significant acute joint swelling noted. Results Laboratory Results: 02/22/18 05:08 02/22/18 05:08 02/22/18 02/22/18 02/22/18 05:08 05:08 13:53 WBC 6.3 RBC 4.08 L Hgb 12.7 L Hct 38.4 MCV 94 MCH 31.0 MCHC 32.9 RDW 15.4 H Plt Count 102 L Seg Neutrophils % 61.6 Lymphocytes % 24.4 Monocytes % 11.6 Eosinophils % 1.8 Basophils % 0.6 Absolute Neutrophils 3.9 Absolute Lymphocytes 1.5 Absolute Monocytes 0.7 Absolute Eosinophils 0.1 Absolute Basophils 0.0 Sodium 143.7 Potassium 3.8 Chloride 100 Carbon Dioxide 32 H Anion Gap 12 BUN 16 Creatinine 0.95 Est GFR ( Amer) > 60 Est GFR (Non-Af Amer) > 60 Glucose 101 Calcium 9.0 Total Bilirubin 1.2 AST 26 ALT 30 Alkaline Phosphatase 75 Total Protein 6.3 Albumin 3.4 L Lipase 2544.9 H Stool for White Cells NO WBCs SEEN EKG Comments: QS complex in lead III and aVF consistent with prior inferior myocardial infarction. No acute ST segment changes noted. Occasional VPCs noted. Impressions: Acute Abdomen Series 02/20/18 15:08 IMPRESSION: NO RADIOGRAPHIC EVIDENCE FOR ACUTE ABDOMINAL DISEASE. Abdomen Ultrasound 02/20/18 18:29 IMPRESSION: Possible small gallstone versus polyp. The pancreas cannot be seen. Abdomen/Pelvis CT 02/21/18 00:00 IMPRESSION: 1. Cholelithiasis. 2. Extensive diverticulosis coli. Assessment & Plan - Diagnosis (1) Acute pancreatitis Qualifiers: Pancreatitis type: biliary Is this a current diagnosis for this admission?: Yes (2) Coronary artery disease Qualifiers: Coronary Disease-Associated Artery/Lesion type: unspecified vessel or lesion type [place] vs. transplanted heart: [place] heart Associated angina: without angina Qualified Code(s): I25.10 - Atherosclerotic heart disease of [place] coronary artery without angina pectoris Is this a current diagnosis for this admission?: Yes (3) Dyslipidemia Is this a current diagnosis for this admission?: Yes (4) History of pulmonary embolus (PE) Is this a current diagnosis for this admission?: Yes (5) Hypertension Qualifiers: Hypertension type: essential hypertension Qualified Code(s): I10 - Essential (primary) hypertension Is this a current diagnosis for this admission?: Yes (6) Type 2 diabetes mellitus Qualifiers: Diabetes mellitus fdc insulin use: without fdc use Diabetes mellitus complication status: without complication Qualified Code(s): E11.9 - Type 2 diabetes mellitus without complications Is this a current diagnosis for this admission?: Yes (7) Preoperative cardiovascular examination Is this a current diagnosis for this admission?: Yes - Notes Notes: Acute pancreatitis: Possibly related to gallstone, patient awaiting cholecystectomy. Patient noted to be stable from cardiac standpoint without any recent ongoing angina, CHF, significant cardiac dysrhythmia. It seems surgery is indicated. Have therefore cleared patient with average or slightly above average risk because of known history of prior myocardial infarction and known CAD. Patient would benefit from DVT prophylaxis as there is history of thromboembolic phenomenon in the past. Coronary artery disease: Symptomatically stable. Preliminary 2D echo results reviewed. No significant LV systolic dysfunction noted. No stenotic valve disease noted. Dyslipidemia: Recommend statin therapy. Hypertension: Currently under reasonable control. Diabetes: Recommend good control of blood sugar but avoid any hypo-or hyperglycemia. Patient encouraged to report any new symptoms. - Time Time Spent: 30 to 50 Minutes - CODE STATUS was discussed, patient remains full code. Surrogate decision-maker unchanged. Multiple medical problems were addressed. More than 50% of the time spent coordinating care, discussing management plans with involved caregivers. Management plans discussed with involved personnels. Medical decision making was of moderate to high complexity , patient's has multiple comorbidities. Medications reviewed and adjusted accordingly: Yes
--- NOTE | 2018-02-24 17:36 | PDOC PROGRESS REPORT ---
Subjective Progress Note for:: 02/23/18 Subjective:: Patient seems to be doing better with gradual improvement. Patient is complaining of some diarrhea and is noted to have C. difficile. Pt is denying any chest arm or neck discomfort. Patient denying any PND, orthopnea. Patient denied any sustained palpitations, dizziness, syncope, near syncope. Patient denying any fever chills. Patient denying any other significant discomfort. Patient is maintaining sinus rhythm. Review of systems: Rest review of systems negative. Medications: Medications have been reviewed. Reason For Visit: ACUTE PANCREATITIS Physical Exam Vital Signs: Temp Pulse Resp BP Pulse Ox 97.6 F 68 18 106/57 L 96 02/23/18 19:54 02/23/18 19:54 02/23/18 19:54 02/23/18 19:54 02/23/18 19:54 Intake & Output 02/22/18 02/23/18 02/24/18 06:59 06:59 06:59 Intake Total 6336 901 2209 Output Total 1775 1260 5 Balance -775 -640 4217 Weight 95.6 kg 95.8 kg Exam: GENERAL: well-nourished and in no acute distress. Alert and oriented x3 HEAD: Atraumatic, normocephalic. EYES: Pupils equal round and reactive to light, extraocular movements intact, sclera anicteric, conjunctiva are normal. ENT: TMs normal, nares patent, oropharynx clear without exudates. Moist mucous membranes. No oral ulcerations or bleeding gums noted NECK: supple without lymphadenopathy. Trachea is central. No cervical or axillary lymphadenopathy noted. Carotids are 2+, JVD WNL LUNGS: Respiration seems nonlabored, no significant accessory muscle action noted. Breath sounds clear to auscultation bilaterally and equal noted. No wheezes rales or rhonchi noted. No significant dullness noted on percussion. CHEST: Palpation of the chest wall shows no significant chest wall tenderness. 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 ABDOMEN: Soft, minimal upper quadrant tenderness appreciated, normoactive bowel sounds. No guarding, no rebound. No rigidity noted . No masses appreciated. EXTREMITIES: Pedal pulses are 1-2+, no calf tenderness noted. No clubbing or cyanosis. negative pedal edema noted NEUROLOGICAL: Focused neurological exam showed no significant neurologic deficit. Normal speech, no focal weakness appreciated. PSYCH: Normal mood, normal affect. Judgment and insight within normal limits. SKIN: No significant ecchymosis, skin is noted to be warm. MUSCULOSKELETAL EXAM: No significant acute joint swelling noted. Results Laboratory Results: 02/23/18 05:29 02/23/18 05:29 02/23/18 02/23/18 05:29 05:29 WBC 5.8 RBC 3.91 L Hgb 12.2 L Hct 36.5 L MCV 93 MCH 31.2 MCHC 33.5 RDW 15.5 H Plt Count 100 L Seg Neutrophils % 59.1 Lymphocytes % 24.6 Monocytes % 13.0 Eosinophils % 2.6 Basophils % 0.7 Absolute Neutrophils 3.4 Absolute Lymphocytes 1.4 Absolute Monocytes 0.8 Absolute Eosinophils 0.2 Absolute Basophils 0.0 Sodium 143.4 Potassium 4.1 Chloride 102 Carbon Dioxide 29 Anion Gap 12 BUN 15 Creatinine 1.09 Est GFR ( Amer) > 60 Est GFR (Non-Af Amer) > 60 Glucose 97 Calcium 9.0 Total Bilirubin 1.3 AST 22 ALT 26 Alkaline Phosphatase 74 Total Protein 6.2 L Albumin 3.4 L Lipase 694.3 H Impressions: Acute Abdomen Series 02/20/18 15:08 IMPRESSION: NO RADIOGRAPHIC EVIDENCE FOR ACUTE ABDOMINAL DISEASE. Abdomen Ultrasound 02/20/18 18:29 IMPRESSION: Possible small gallstone versus polyp. The pancreas cannot be seen. Abdomen/Pelvis CT 02/21/18 00:00 IMPRESSION: 1. Cholelithiasis. 2. Extensive diverticulosis coli. Assessment & Plan - Diagnosis (1) Acute pancreatitis Qualifiers: Pancreatitis type: biliary Is this a current diagnosis for this admission?: Yes (2) C. difficile colitis Is this a current diagnosis for this admission?: Yes (3) Coronary artery disease Qualifiers: Coronary Disease-Associated Artery/Lesion type: unspecified vessel or lesion type [place] vs. transplanted heart: [place] heart Associated angina: without angina Qualified Code(s): I25.10 - Atherosclerotic heart disease of [place] coronary artery without angina pectoris Is this a current diagnosis for this admission?: Yes (4) Dyslipidemia Is this a current diagnosis for this admission?: Yes (5) Hypertension Qualifiers: Hypertension type: essential hypertension Qualified Code(s): I10 - Essential (primary) hypertension Is this a current diagnosis for this admission?: Yes (6) Preoperative cardiovascular examination Is this a current diagnosis for this admission?: Yes (7) Type 2 diabetes mellitus Qualifiers: Diabetes mellitus detention insulin use: without oil heaterman use Diabetes mellitus complication status: without complication Qualified Code(s): E11.9 - Type 2 diabetes mellitus without complications Is this a current diagnosis for this admission?: Yes - Notes Notes: Acute pancreatitis: Possibly related to gallstone, patient awaiting cholecystectomy. Patient noted to be stable from cardiac standpoint without any recent ongoing angina, CHF, significant cardiac dysrhythmia. It seems surgery is indicated. Have therefore cleared patient with average or slightly above average risk because of known history of prior myocardial infarction and known CAD. Patient would benefit from DVT prophylaxis as there is history of thromboembolic phenomenon in the past. C. difficile colitis: Patient in isolation. Being treated for it. Coronary artery disease: Symptomatically stable. Preliminary 2D echo results reviewed. No significant LV systolic dysfunction noted. No stenotic valve disease noted. Dyslipidemia: Recommend statin therapy. Hypertension: Currently under reasonable control. Diabetes: Recommend good control of blood sugar but avoid any hypo-or hyperglycemia. Patient encouraged to report any new symptoms. Dr. Dawkins to cover from tomorrow. 2D echo results were reviewed with the patient. - Time Time with patient: 15-25 minutes - CODE STATUS was discussed, patient remains full code. Surrogate decision-maker unchanged. Multiple medical problems were addressed. More than 50% of the time spent coordinating care, discussing management plans with involved caregivers. Management plans discussed with involved personnels. Medical decision making was of moderate to high complexity , patient's has multiple comorbidities. Medications reviewed and adjusted accordingly: Yes
[2018-02-24] MEDS ORDERED: VANCOMYCIN HCL INJ 500 MG VIAL ONE (18:39)
[2018-02-24] MEDS: VANCOMYCIN HCL INJ 500 MG VIAL PO SCH ×2 (18:43→23:32)
[2018-02-25 04:47] LABS: INTERNATIONAL RATION (INR) 0.94
[2018-02-25 04:48] LABS: PARTIAL THROMBOPLASTIN TIME 25.8 SEC (23.5-35.8)
[2018-02-25 05:01] LABS: ABSOLUTE BASOPHILS # (AUTO) 0.1 10^3/uL (0.0-0.2); ABSOLUTE EOSINOPHILS # (AUTO) 0.2 10^3/uL (0.0-0.6); ABSOLUTE MONOCYTES (AUTO) 0.9 10^3/uL (0.1-1.4); ABSOLUTE NEUT (AUTO) 3.3 10^3/uL (1.7-8.2); BASOPHILS % (AUTO) 0.8 % (0-2); EOSINOPHILS % (AUTO) 3.6 % (0-6); HEMATOCRIT 38.9 % (37.9-51.0); MEAN CORPUSCULAR HEMOGLOBIN 31.2 pg (27.0-33.4); MEAN CORPUSCULAR HGB CONC 33.5 g/dL (32.0-36.0); MEAN CORPUSCULAR VOLUME 93 fl (80-97); MONOCYTES % (AUTO) 13.2 % (3-13); RED BLOOD COUNT 4.18 10^6/uL (4.35-5.55); RED CELL DISTRIBUTION WIDTH 15.2 % (11.5-14.0); SEGMENTED NEUTROPHILS % (AUTO) 51.4 % (42-78); TOTAL CELLS COUNTED % (AUTO) 100 %; WHITE BLOOD COUNT 6.5 10^3/uL (4.0-10.5)
[2018-02-25 05:25] LABS: ALANINE AMINOTRANSFERASE 22 U/L (21-72); ALBUMIN 3.5 g/dL (3.5-5.0); ALKALINE PHOSPHATASE 71 U/L (38-126); ANION GAP 13 (5-19); ASPARTATE AMINO TRANSFERASE 25 U/L (17-59); BILIRUBIN,DIRECT 0.4 mg/dL (0.0-0.4); BILIRUBIN,TOTAL 0.8 mg/dL (0.2-1.3); BLOOD UREA NITROGEN 14 mg/dL (7-20); CALCIUM 8.7 mg/dL (8.4-10.2); CARBON DIOXIDE 28 mmol/L (22-30); CHLORIDE 103 mmol/L (98-107); GLUCOSE 104 mg/dL (75-110); POTASSIUM 3.9 mmol/L (3.6-5.0); SODIUM 144.4 mmol/L (137-145); TOTAL PROTEIN 6.4 g/dL (6.3-8.2)
[2018-02-25] MEDS: METRONIDAZOLE 500 MG/NS RTU 500 MG/100 ML RTUPB IV SCH ×3 (05:39→21:28)
[2018-02-25] MEDS: NORMAL SALINE 1000 ML 1,000 ML IV PRN ×2 (05:40→21:31)
[2018-02-25] MEDS: VANCOMYCIN HCL INJ 500 MG VIAL PO SCH ×4 (05:40→23:16)
[2018-02-25 05:46] LABS: PLATELET COUNT 120 10^3/uL (150-450)
[2018-02-25] MEDS: ISOSORBIDE MONONITRATE 60 MG TAB.ER.24H PO SCH (08:26)
[2018-02-25] MEDS: AMLODIPINE BESYLATE 5 MG TABLET PO SCH (10:15)
[2018-02-25] MEDS: FUROSEMIDE 40 MG TABLET PO SCH ×2 (10:15→17:43)
[2018-02-25] MEDS: GUAIFENESIN 600 MG TABLET.SA PO SCH ×2 (10:15→21:29)
[2018-02-25] MEDS: PAROXETINE HCL 20 MG TABLET PO SCH (10:15)
[2018-02-25] MEDS: FLUTICASONE NASAL SPRAY 50 MCG/SPRY 120 SPRAY/16 GM NASL SCH (10:16)
[2018-02-25] MEDS: BUDESONIDE/FORMOTEROL 80-4.5 MCG 60 PUFF/6.9 GM MDI IH SCH ×2 (10:17→21:32)
[2018-02-25] MEDS: INSULIN LISPRO 100 UNIT/ML 3 ML VIAL SUBCUT PRN (13:00)
--- NOTE | 2018-02-25 14:27 | PDOC PROGRESS REPORT ---
Subjective Progress Note for:: 02/25/18 Subjective:: The patient's diarrhea has decreased since starting PO vancomycin yesterday. No new complaints. Reason For Visit: ACUTE PANCREATITIS Physical Exam Vital Signs: Temp Pulse Resp BP Pulse Ox 97.9 F 85 17 130/64 H 96 02/25/18 11:22 02/25/18 11:22 02/25/18 11:22 02/25/18 11:22 02/25/18 11:22 Intake & Output 02/24/18 02/25/18 02/26/18 06:59 06:59 06:59 Intake Total 6362 3925 Output Total 1380 2205 Balance 4982 1720 Weight 95.6 kg 96.1 kg General appearance: PRESENT: no acute distress, cooperative, well-developed, well-nourished Respiratory exam: PRESENT: other - No increased work of breathing. No wheezes, rales, or rhonchi. No tactile fremitus. Cardiovascular exam: PRESENT: RRR. ABSENT: gallop, rubs, systolic murmur GI/Abdominal exam: PRESENT: normal bowel sounds, soft, tenderness. ABSENT: distended, guarding, hernia, mass, organolmegaly Rectal exam: PRESENT: deferred Neurological exam: PRESENT: alert, awake, oriented to person, oriented to place , oriented to time, oriented to situation, CN II-XII grossly intact. ABSENT: motor sensory deficit Psychiatric exam: PRESENT: appropriate affect, normal mood Skin exam: PRESENT: dry, intact, warm Results Laboratory Results: 02/25/18 04:12 02/25/18 04:12 02/25/18 02/25/18 04:12 04:12 WBC 6.5 RBC 4.18 L Hgb 13.0 L Hct 38.9 MCV 93 MCH 31.2 MCHC 33.5 RDW 15.2 H Plt Count 120 L Seg Neutrophils % 51.4 Lymphocytes % 31.0 Monocytes % 13.2 H Eosinophils % 3.6 Basophils % 0.8 Absolute Neutrophils 3.3 Absolute Lymphocytes 2.0 Absolute Monocytes 0.9 Absolute Eosinophils 0.2 Absolute Basophils 0.1 Sodium 144.4 Potassium 3.9 Chloride 103 Carbon Dioxide 28 Anion Gap 13 BUN 14 Creatinine 1.05 Est GFR ( Amer) > 60 Est GFR (Non-Af Amer) > 60 Glucose 104 Calcium 8.7 Total Bilirubin 0.8 AST 25 ALT 22 Alkaline Phosphatase 71 Total Protein 6.4 Albumin 3.5 Lipase 316.0 H 02/22/18 13:53 Stool - Stool - Final 02/22/18 13:53 Stool - Stool Stool Culture - Final NO SALMONELLA, SHIGELLA, CAMPYLOBACTER, OR E.COLI 0157 RECOVERED. NEGATIVE FOR SHIGA TOXINS 1&2. Impressions: Acute Abdomen Series 02/20/18 15:08 IMPRESSION: NO RADIOGRAPHIC EVIDENCE FOR ACUTE ABDOMINAL DISEASE. Abdomen Ultrasound 02/20/18 18:29 IMPRESSION: Possible small gallstone versus polyp. The pancreas cannot be seen. Abdomen/Pelvis CT 02/21/18 00:00 IMPRESSION: 1. Cholelithiasis. 2. Extensive diverticulosis coli. Assessment & Plan - Diagnosis (1) Cholelithiasis and acute cholecystitis without obstruction Is this a current diagnosis for this admission?: Yes Plan: Plan is for cholecystectomy. The patient has been cleared for surgery by cardiology. Surgery when lipase delines further, as per general surgery. (2) Acute pancreatitis Qualifiers: Pancreatitis type: biliary Is this a current diagnosis for this admission?: Yes Plan: Cholecystectomy in am. The patient has been cleared by cardiology. (3) Coronary artery disease Qualifiers: Coronary Disease-Associated Artery/Lesion type: unspecified vessel or lesion type [place] vs. transplanted heart: [place] heart Associated angina: without angina Qualified Code(s): I25.10 - Atherosclerotic heart disease of [place] coronary artery without angina pectoris Is this a current diagnosis for this admission?: Yes Plan: The patient has been cleared for surgery by Cardiology. (4) DVT prophylaxis Is this a current diagnosis for this admission?: Yes Plan: The patient is on Eliquis due to his history of pulmonary embolus. It is now being held as the patient is to go for surgery (5) Dyslipidemia Is this a current diagnosis for this admission?: Yes Plan: Statin. (6) Hypertension Qualifiers: Hypertension type: essential hypertension Qualified Code(s): I10 - Essential (primary) hypertension Is this a current diagnosis for this admission?: Yes Plan: Fair control on current regimen. Monitor. 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 Hypoglycemia protocol. (8) History of pulmonary embolus (PE) Is this a current diagnosis for this admission?: Yes Plan: The patient takes Eliquis which is currently being held. (9) C. difficile colitis Is this a current diagnosis for this admission?: Yes Plan: Receiving Flagyl. Diarrhea has not slowed down. PO Vancomycin added. Diarrhea is improved. - Time Time Spent with patient: 25-34 minutes Medications reviewed and adjusted accordingly: Yes
[2018-02-25] MEDS ORDERED: VANCOMYCIN HCL INJ 500 MG VIAL ONE (17:31)
--- NOTE | 2018-02-25 20:18 | Progress Note ---
Provider Note Provider Note: PROGRESS NOTE for 02/25/[address] Estephanie Salazar. SUBJECTIVE: Note that the patient denies any chest pain or discomfort. There is no PND, orthopnea, leg edema. There is no palpitations or arrhythmia seen, Except for a asymptomatic few PVCs seen. There is no dizziness or syncope. There are no TIA or CVA symptoms. The patient denies abdominal pain . He states that his diarrhea stopped this morning. Selected Entries 02/25/18 11:22 Temperature 97.9 F Temperature Oral Source Pulse Rate 85 Respiratory 17 Rate Blood Pressure 130/64 H Blood Pressure 86 Mean BP Location Right Arm BP Position Supine O2 Sat by Pulse 96 Oximetry Oxygen Delivery Room Air Method OBJECTIVE: GENERAL: On examination the patient is mildly obese but well-groomed in no acute distress. VITAL SIGNS: He is afebrile with a temperature of 98.4 degrees Fahrenheit, pulse is 64 beats per minute, blood pressure 120/68, respirations are 15 per minute, O2 saturations are 96% on room air. HEENT: Head is atraumatic, normocephalic. Eyes: Pupils are equal, round and regular, reactive to light and accommodation. Extraocular movements are normal. There is no conjunctival pallor. There is no scleral icterus. ENT is negative. NECK: Supple. There is no JVD. There is no lymphadenopathy. There is no goiter. Carotids are equal. There is no bruit. Trachea is central. LUNGS: Clear to auscultation and percussion. HEART: S1, S2 is heard. There is no S3 gallop. There is no S4 gallop. There is a systolic murmur in the left sternal border and the apex. There is no rub. ABDOMEN: Soft, obese, nontender. There is no hepatosplenomegaly. Bowel sounds are well heard. There are no tender areas or masses. There is no rebound, guarding, or rigidity. EXTREMITIES: Femorals are diminished. There are no femoral bruits. Leg pulses are diminished. There is no pedal edema. There is no cyanosis or clubbing. There is no DVT or cellulitis. There is no calf tenderness. CENTRAL NERVOUS SYSTEM: The patient is conscious, awake, alert and oriented x3 with no focal deficits. PSYCHIATRIC: The patient's judgment and insight are intact. His affect is seems to be slightly withdrawn. DIAGNOSTIC STUDIES: 02/25/18 02/25/18 02/25/18 04:12 04:12 04:12 WBC 6.5 Hgb 13.0 L Hct 38.9 Plt Count 120 L PT 13.0 INR 0.94 APTT 25.8 Sodium 144.4 Potassium 3.9 Chloride 103 Carbon Dioxide 28 BUN 14 Creatinine 1.05 Est GFR ( Amer) > 60 Glucose 104 Calcium 8.7 Total Bilirubin 0.8 Direct Bilirubin 0.4 Neonat Total Bilirubin Not Reportable Neonat Direct Bilirubin Not Reportable Neonat Indirect Bili Not Reportable AST 25 ALT 22 Alkaline Phosphatase 71 Total Protein 6.4 Albumin 3.5 IMPRESSION: 1. ACUTE CHOLECYSTITIS WITH CHOLELITHIASIS. The patient for surgery tomorrow. Note that the patient will be an acceptable cardiac risk for this procedure. 2. PANCREATITIS, MOST LIKELY SECONDARY TO GALLSTONES PANCREATITIS. Lipase is coming down. The patient is asymptomatic. 3. CORONARY ARTERY DISEASE, HISTORY OF CORONARY ARTERY BYPASS GRAFT SURGERY. Stable with no anginal symptoms. The patient's troponin I on 02/20/2018 was negative at 0.029. Will get records from [facility]. 4. HYPERTENSION. 5. CARDIOMYOPATHY WITH MILDLY REDUCED LV EJECTION FRACTION. 6. COPD. 7. DEPRESSION. 8. MILD THROMBOCYTOPENIA. RECOMMENDATION: Cardiac status is stable. The patient will be an acceptable risk for procedure. Postoperatively we will continue to monitor the patient on telemetry and get serial EKGs and cardiac enzymes. Watch the patient's output congestive heart failure as he has cardiomyopathy, he has borderline reduced LV ejection fraction of 50%.
--- NOTE | 2018-02-25 21:33 | PDOC PROGRESS REPORT ---
Subjective Progress Note for:: 02/25/18 Subjective:: Practically no more pains. Diarrhea slowed down with po Vanco Reason For Visit: ACUTE PANCREATITIS Physical Exam Vital Signs: Temp Pulse Resp BP Pulse Ox 98.6 F 84 20 135/69 H 92 02/25/18 20:35 02/25/18 20:35 02/25/18 20:35 02/25/18 20:35 02/25/18 20:35 Intake & Output 02/24/18 02/25/18 02/26/18 06:59 06:59 06:59 Intake Total 6362 3925 632 Output Total 1380 2205 300 Balance 4982 1720 332 Weight 95.6 kg 96.1 kg Exam: abd is soft and non tender Results Laboratory Results: 02/25/18 04:12 02/25/18 04:12 02/25/18 02/25/18 04:12 04:12 WBC 6.5 RBC 4.18 L Hgb 13.0 L Hct 38.9 MCV 93 MCH 31.2 MCHC 33.5 RDW 15.2 H Plt Count 120 L Seg Neutrophils % 51.4 Lymphocytes % 31.0 Monocytes % 13.2 H Eosinophils % 3.6 Basophils % 0.8 Absolute Neutrophils 3.3 Absolute Lymphocytes 2.0 Absolute Monocytes 0.9 Absolute Eosinophils 0.2 Absolute Basophils 0.1 Sodium 144.4 Potassium 3.9 Chloride 103 Carbon Dioxide 28 Anion Gap 13 BUN 14 Creatinine 1.05 Est GFR ( Amer) > 60 Est GFR (Non-Af Amer) > 60 Glucose 104 Calcium 8.7 Total Bilirubin 0.8 AST 25 ALT 22 Alkaline Phosphatase 71 Total Protein 6.4 Albumin 3.5 Lipase 316.0 H 02/22/18 13:53 Stool - Stool - Final 02/22/18 13:53 Stool - Stool Stool Culture - Final NO SALMONELLA, SHIGELLA, CAMPYLOBACTER, OR E.COLI 0157 RECOVERED. NEGATIVE FOR SHIGA TOXINS 1&2. Impressions: Acute Abdomen Series 02/20/18 15:08 IMPRESSION: NO RADIOGRAPHIC EVIDENCE FOR ACUTE ABDOMINAL DISEASE. Abdomen Ultrasound 02/20/18 18:29 IMPRESSION: Possible small gallstone versus polyp. The pancreas cannot be seen. Abdomen/Pelvis CT 02/21/18 00:00 IMPRESSION: 1. Cholelithiasis. 2. Extensive diverticulosis coli. Assessment & Plan - Time Time Spent with patient: 15-24 minutes - Inpatient Certification Medical Necessity: Need For IV Fluids, Need for IV Antibiotics, Need for Surgery - Plan Summary Plan Summary: Lipase almost normal. He is cleared for surgery by Cardio and Hospitalist For lap brandon tomorrow possible cholangiogram by Dr Kidd
--- NOTE | 2018-02-25 23:07 | EKG REPORT ---
SEVERITY:- ABNORMAL ECG - SINUS RHYTHM MULTIFORM VENTRICULAR PREMATURE COMPLEXES NONSPECIFIC IVCD WITH LAD PROBABLE INFERIOR INFARCT, AGE INDETERMINATE : Confirmed by: Estephanie Salazar MD 25-Feb-2018 23:07:01
[2018-02-26 05:22] LABS: ABSOLUTE EOSINOPHILS # (AUTO) 0.2 10^3/uL (0.0-0.6); ABSOLUTE LYMPHOCYTES (AUTO) 1.5 10^3/uL (0.5-4.7); ABSOLUTE NEUT (AUTO) 3.3 10^3/uL (1.7-8.2); BASOPHILS % (AUTO) 0.7 % (0-2); HEMATOCRIT 37.5 % (37.9-51.0); HEMOGLOBIN 12.2 g/dL (13.5-17.0); LYMPHOCYTES % (AUTO) 25.3 % (13-45); MEAN CORPUSCULAR HEMOGLOBIN 30.4 pg (27.0-33.4); MEAN CORPUSCULAR HGB CONC 32.5 g/dL (32.0-36.0); MEAN CORPUSCULAR VOLUME 94 fl (80-97); MONOCYTES % (AUTO) 16.4 % (3-13); PLATELET COUNT 127 10^3/uL (150-450); RED BLOOD COUNT 4.01 10^6/uL (4.35-5.55); RED CELL DISTRIBUTION WIDTH 15.5 % (11.5-14.0); SEGMENTED NEUTROPHILS % (AUTO) 54.6 % (42-78); TOTAL CELLS COUNTED % (AUTO) 100 %
[2018-02-26 05:35] LABS: INTERNATIONAL RATION (INR) 0.92; PARTIAL THROMBOPLASTIN TIME 26.7 SEC (23.5-35.8); PROTHROMBIN TIME 12.8 SEC (11.4-15.4)
[2018-02-26] MEDS: METRONIDAZOLE 500 MG/NS RTU 500 MG/100 ML RTUPB IV SCH ×3 (05:40→22:21)
[2018-02-26] MEDS: VANCOMYCIN HCL INJ 500 MG VIAL PO SCH ×3 (05:41→17:18)
[2018-02-26] MEDS ORDERED: MIDAZOLAM 2 MG/2 ML INJ ONE (07:36)
[2018-02-26] MEDS ORDERED: FENTANYL CITRATE INJ/PF 100 MCG/2 ML AMPUL ONE ×2 (07:36→12:25)
[2018-02-26] MEDS ORDERED: EPHEDRINE SULFATE INJ 50 MG/1 ML AMPULE ONE (07:36)
[2018-02-26] MEDS ORDERED: ACETAMINOPHEN 1,000 MG/100 ML RTUPB IV ONE (07:37)
[2018-02-26] MEDS ORDERED: ONDANSETRON HCL INJ/PF 4 MG/2 ML SDV ONE (07:37)
[2018-02-26] MEDS ORDERED: DEXAMETHASONE SOD PHOSPHATE INJ 4 MG/1 ML VIAL ONE (07:37)
[2018-02-26] MEDS ORDERED: PROPOFOL INJ 200 MG/20 ML VIAL IV ONE (07:37)
[2018-02-26] MEDS ORDERED: BUPIVACAINE HCL 0.25 % INJ/PF (2.5 MG/1 ML) 30 ML VIAL ONE (07:56)
--- NOTE | 2018-02-26 11:55 | Operative Report ---
Operative Report DATE OF SURGERY: 02/26/18 PREOPERATIVE DIAGNOSIS: 1. Symptomatic cholelithiasis with cholecystitis. 2. Pancreatitis POSTOPERATIVE DIAGNOSIS: Same with normal intraoperative cholangiogram OPERATION: Laparoscopic cholecystectomy. Intraoperative cholangiography. Interpretation of intraoperative cholangiography SURGEON: MARC BECKFORD ANESTHESIA: GA TISSUE REMOVED OR ALTERED: 1 gallbladder with contents COMPLICATIONS: None ESTIMATED BLOOD LOSS: Scant INTRAOPERATIVE FINDINGS: See below PROCEDURE: After obtaining informed consent, the patient was taken to the operating room. General Anesthesia was induced; the arms were extended, and the abdomen was exposed, and prepped and draped in a sterile fashion. Instrumentation was set up for laparoscopic cholecystectomy. Surgical plan and surgical timeout were conducted. A vertical incision was made above the umbilicus, and a verres needle was inserted uneventfully into the peritoneal cavity. Pneumoperitoneum was established. The verres needle was removed and a 5 mm trocar was inserted and a 5 mm flexible laparoscope was inserted. Visualization of the peritoneal cavity confirmed safe uneventful entry. Under direct visualization 3 additional 5 mm ports were established, one in the subxiphoid position and second in the subcostal position. Visualization of the hepatobiliary anatomy revealed no anatomic variations. Of note we used LigaSure dissector energy device throughout the operation as the hook cautery was not functioning. A grasper was placed on the fundus of the gallbladder and the gallbladder is elevated over the right surface of the liver; a second grasper was used to grasp the infundibulum of the gallbladder. There were multiple adhesions between the gallbladder and the hepatic flexure of the colon and these were taken down with the ligature. The neck of the gallbladder and junction with the cystic duct was dissected out. The Cystic artery was in its usual location medial and cephalad to the cystic duct. The cystic artery was surrounded with a right angle clamp, clipped twice proximally and divided with laparoscopic scissors. We now opened the triangle of [place] by dividing the peritoneal reflection on both the medial and lateral sides of the cystic duct infundibular junction. The critical view was obtained. We now milked the cystic duct of any possible stones, clipped the cystic duct distally one time, then prepared for intraoperative cholangiography. We brought onto the field a disposable, percutaneous cholangiogram catheter, made a small mag in the anterior abdominal wall subcostal space, passed the cholangiogram catheter percutaneously under direct visualization through the abdominal wall. The trocar was removed, and appropriate irrigation and contrast syringe is attached. I made an incision in the medial aspect of the cystic duct. This ended up transecting the cystic duct completely. The cystic duct was approximately 3 mm in diameter. The cholangiogram catheter was threaded into the cystic duct, and the cystic duct and catheter was secured with a small Hemoclip We removed all the laparoscopic instrumentation, level the patient now now proceeded to instill approximately 8 cc of full-strength Isovue contrast. We performed a series of intraoperative real-time scopic images which successfully showed complete illumination of the extrahepatic biliary tree including the right and left hepatic ducts, the common hepatic duct, the common bile duct. Of note the cystic duct was very short. The common duct tapered towards the pancreas, with successful egress of contrast into the duodenum. There was no evidence of leak. I could not detect any filling defects. This was interpreted as a normal intraoperative cholangiogram. We returned to the peritoneal cavity reinsert her instrumentation, removed the clip and the cholangiogram catheter. The cystic duct stump was secured with 2 clips under excellent visualization. The gallbladder was removed from the liver bed using sharp dissection. Graspers were repositioned and the gallbladder was removed uneventfully from the abdominal cavity through the super umbilical port site incision. The specimen was examined, then passed off to pathology for permanent analysis. We returned to the peritoneal cavity check for bleeding, and evidence of bile leak, and there was none. We Confirmed satisfactory placement of clips on cystic duct and cystic artery were secured . At this point we felt the operation was complete. The subcutaneous tissue was then anesthetized with quarter percent Marcaine Sponge and needle counts are correct. All ports removed under direct visualization pneumoperitoneum evacuated, and 5 mm port wounds closed with 3-0 Vicryl suture, benzoin and Steri-Strips. The patient was extubated, and taken to the recovery room in stable condition.
[2018-02-26] MEDS ORDERED: PROMETHAZINE HCL INJ 25 MG/1 ML VIAL IV PRN (12:10)
[2018-02-26] MEDS ORDERED: MEPERIDINE HCL/PF INJ 25 MG/1 ML DISP.SYRIN IV PRN (12:10)
[2018-02-26] MEDS ORDERED: FENTANYL CITRATE INJ/PF 100 MCG/2 ML AMPUL IV PRN ×3 (12:10)
[2018-02-26] MEDS ORDERED: DIPHENHYDRAMINE HCL 50 MG/ML VIAL IV PRN (12:10)
--- NOTE | 2018-02-26 12:49 | RADIOLOGY REPORT (SQ) ---
EXAM DESCRIPTION: CHOLANGIOGRAM OPERATIVE COMPLETED DATE/TIME: 02/26/2018 11:52 am REASON FOR STUDY: CHOLANGIOGRAM IN OR COMPARISON: None. FLUOROSCOPY TIME: 0.1 minute Cinegraphic and spot fluoroscopic images saved to PACS. TECHNIQUE: Cinegraphic and spot fluoroscopic images were obtained from an intraoperative cholangiogr am. LIMITATIONS: None. FINDINGS: There is opacification of the bile ducts, cystic duct remnants and second portion of the d uodenum without evidence of fixed filling defect or significant extravasation. IMPRESSION: INTRAOPERATIVE CHOLANGIOGRAM. COMMENT: Quality ID [id number]: Final reports for procedures using fluoroscopy that document radiation exp osure indices, or exposure time and number of fluorographic images (if radiation exposure indices are not available) TECHNICAL DOCUMENTATION: JOB ID: [id number] [employer]- All Rights Reserved Reading location - IP/workstation name: [email or web address]
[2018-02-26] MEDS: BUDESONIDE/FORMOTEROL 80-4.5 MCG 60 PUFF/6.9 GM MDI IH SCH (13:24)
[2018-02-26] MEDS: FLUTICASONE NASAL SPRAY 50 MCG/SPRY 120 SPRAY/16 GM NASL SCH (13:24)
[2018-02-26] MEDS: FUROSEMIDE 40 MG TABLET PO SCH ×2 (13:27→17:18)
[2018-02-26] MEDS: PAROXETINE HCL 20 MG TABLET PO SCH (13:28)
[2018-02-26] MEDS: AMLODIPINE BESYLATE 5 MG TABLET PO SCH (13:28)
[2018-02-26] MEDS: GUAIFENESIN 600 MG TABLET.SA PO SCH ×2 (13:29→22:21)
[2018-02-26] MEDS: ISOSORBIDE MONONITRATE 60 MG TAB.ER.24H PO SCH (13:29)
[2018-02-26] MEDS: INSULIN LISPRO 100 UNIT/ML 3 ML VIAL SUBCUT PRN (17:50)
[2018-02-26] MEDS ORDERED: NEOSTIGMINE METHYLSULFATE 10 MG/10 ML VIAL ONE (18:34)
[2018-02-26] MEDS ORDERED: GLYCOPYRROLATE 1 MG/5 ML SYRINGE ONE (18:34)
[2018-02-26] MEDS ORDERED: SUCCINYLCHOLINE CHLORIDE INJ 200 MG/10 ML VIAL ONE (18:34)
[2018-02-26] MEDS ORDERED: ROCURONIUM BROMIDE INJ 50 MG/5 ML VIAL IV ONE (18:34)
--- NOTE | 2018-02-26 23:00 | PDOC PROGRESS REPORT ---
Subjective Progress Note for:: 02/26/18 Subjective:: The patient is seen post-operatively. He has tolerated the procedure well. Reason For Visit: ACUTE PANCREATITIS Physical Exam Vital Signs: Temp Pulse Resp BP Pulse Ox 98.4 F 92 16 101/68 92 02/26/18 19:20 02/26/18 19:20 02/26/18 19:20 02/26/18 19:20 02/26/18 19:20 Intake & Output 02/25/18 02/26/18 02/27/18 06:59 06:59 06:59 Intake Total 3925 2242 3242 Output Total 2205 922 510 Balance 1720 1617 2732 Weight 96.1 kg 96.5 kg General appearance: PRESENT: no acute distress, cooperative Respiratory exam: PRESENT: other - No increased work of breathing.. ABSENT: rales, rhonchi, wheezes Cardiovascular exam: PRESENT: RRR. ABSENT: diastolic murmur, rubs, tachycardia GI/Abdominal exam: PRESENT: distended - slightly, hypoactive bowel sounds, soft , tenderness - mild. ABSENT: guarding, organolmegaly Rectal exam: PRESENT: deferred Extremities exam: ABSENT: clubbing, tenderness, +1 edema Musculoskeletal exam: PRESENT: full ROM. ABSENT: deformity, tenderness Neurological exam: PRESENT: alert, awake, oriented to person, oriented to place , oriented to time, oriented to situation, CN II-XII grossly intact. ABSENT: motor sensory deficit Skin exam: PRESENT: dry, intact, warm Results Laboratory Results: 02/26/18 05:04 02/25/18 04:12 02/26/18 05:04 WBC 6.0 RBC 4.01 L Hgb 12.2 L Hct 37.5 L MCV 94 MCH 30.4 MCHC 32.5 RDW 15.5 H Plt Count 127 L Seg Neutrophils % 54.6 Lymphocytes % 25.3 Monocytes % 16.4 H Eosinophils % 3.0 Basophils % 0.7 Absolute Neutrophils 3.3 Absolute Lymphocytes 1.5 Absolute Monocytes 1.0 Absolute Eosinophils 0.2 Absolute Basophils 0.0 Impressions: Acute Abdomen Series 02/20/18 15:08 IMPRESSION: NO RADIOGRAPHIC EVIDENCE FOR ACUTE ABDOMINAL DISEASE. Abdomen Ultrasound 02/20/18 18:29 IMPRESSION: Possible small gallstone versus polyp. The pancreas cannot be seen. Abdomen/Pelvis CT 02/21/18 00:00 IMPRESSION: 1. Cholelithiasis. 2. Extensive diverticulosis coli. Cholangiogram 02/26/18 00:00 IMPRESSION: INTRAOPERATIVE CHOLANGIOGRAM. Assessment & Plan - Diagnosis (1) Cholelithiasis and acute cholecystitis without obstruction Is this a current diagnosis for this admission?: Yes Plan: S/P cholecystectomy. (2) Acute pancreatitis Qualifiers: Pancreatitis type: biliary Is this a current diagnosis for this admission?: Yes Plan: S/P cholecystectomy. (3) Coronary artery disease Qualifiers: Coronary Disease-Associated Artery/Lesion type: unspecified vessel or lesion type [place] vs. transplanted heart: [place] heart Associated angina: without angina Qualified Code(s): I25.10 - Atherosclerotic heart disease of [place] coronary artery without angina pectoris Is this a current diagnosis for this admission?: Yes Plan: The patient has been cleared for surgery by Cardiology. (4) DVT prophylaxis Is this a current diagnosis for this admission?: Yes Plan: The patient is on Eliquis due to his history of pulmonary embolus. It is now being held as the patient is to go for surgery Will restart when okay with surgery (5) Dyslipidemia Is this a current diagnosis for this admission?: Yes Plan: Statin. (6) Hypertension Qualifiers: Hypertension type: essential hypertension Qualified Code(s): I10 - Essential (primary) hypertension Is this a current diagnosis for this admission?: Yes Plan: Fair control on current regimen. Monitor. (7) Type 2 diabetes mellitus Qualifiers: Diabetes mellitus prison insulin use: without prison use Diabetes mellitus complication status: without complication Qualified Code(s): E11.9 - Type 2 diabetes mellitus without complications Is this a current diagnosis for this admission?: Yes Plan: The patient's glucoses appear to be well controlled currently. Hypoglycemia protocol. (8) History of pulmonary embolus (PE) Is this a current diagnosis for this admission?: Yes Plan: The patient takes Eliquis which is currently being held. Resume when okay with surgery. (9) C. difficile colitis Is this a current diagnosis for this admission?: Yes Plan: Flagyl and PO Vancomycin - Time Time Spent with patient: 25-34 minutes Medications reviewed and adjusted accordingly: Yes Anticipated discharge: Home
--- NOTE | 2018-02-27 00:30 | PROGRESS NOTE E ---
Progress Note NAME: ISAURO CARREON : 1940 AGE: 77Y DATE: 02/26/2018 ROOM: 426 SUBJECTIVE: Note the patient had uneventful gallbladder surgery done. The patient is in his room at present in no acute distress. He denies any chest pain or discomfort. There is no abdominal pain. There is no nausea or vomiting. There is no shortness of breath. There is no PND or orthopnea. The patient denies any chest pain or discomfort. There is no pedal edema. There is no arrhythmia seen on the monitor. OBJECTIVE: GENERAL: The patient is well built and well nourished, in no acute distress. VITAL SIGNS: He is afebrile with a temperature of 98.3 degrees Fahrenheit, pulse 86 beats per minute, blood pressure 127/59, respirations 16 per minute, O2 sats 93% on room air. HEENT: Head is normocephalic/atraumatic. Eyes: Pupils are equal, round, regular, reactive to light and accommodation. External ocular movements are normal. There is no conjunctival pallor. There is no scleral icterus. ENT is negative. NECK: Supple. There is no JVD. Carotids are equal. There is no bruit. There is no lymphadenopathy. There is no goiter. Trachea is central. LUNGS: Clear to auscultation and percussion. There is no chest wall tenderness. HEART: S1, S2 heard. There is no S3 gallop. There is no S4 gallop. There is a systolic murmur in the left sternal border and apex. There is no rub. ABDOMEN: Soft, nontender. There is no hepatosplenomegaly. Bowel sounds are well heard. There is no rebound, guarding, or rigidity. EXTREMITIES: Femorals are diminished. Leg pulses diminished. There is no femoral bruit. There is no pedal edema. There is no cyanosis or clubbing. There is no DVT or cellulitis. There is no calf tenderness. NAPPER TENDER: The patient is conscious, awake, alert, oriented x3 with no focal deficit. PSYCHIATRIC: The patient's judgment and insight are intact. His affect is normal. The patient's white count is 6000, hemoglobin 12.2, hematocrit 37.5, platelet count 127,000. The patient's glucose is 136. ASSESSMENT: 1. ACUTE ACALCULOUS CHOLECYSTITIS. Status post cholecystectomy. The patient is stable. 2. PANCREATITIS. Most likely gallstone pancreatitis. Patient without any abdominal pain. No evidence of cirrhosis. 3. CORONARY ARTERY DISEASE. History of coronary artery bypass grafting surgery. No anginal symptoms. No evidence of myocardial infarction this admission. 4. HYPERTENSION. 5. CARDIOMYOPATHY WITH MILDLY REDUCED LEFT VENTRICULAR EJECTION FRACTION OF 50%. 6. CHRONIC OBSTRUCTIVE PULMONARY DISEASE. 7. DEPRESSION. 8. MILD THROMBOCYTOPENIA. PLAN: The patient is stable. Continue current medications. Will recheck the patient's EKG and troponin-I in the a.m. His medications have been reviewed. His medications will be restarted by Surgery. Note medical decision making is of moderate complexity. Discussed with other caregiving providers on the case. Will follow with you. DICTATING PHYSICIAN: TIKA HERNÁNDEZ M.D. [id number] PHY#: [id number] ID: [id number] JOB#: [id number] ACCT: [id number] cc: >
[2018-02-27] MEDS: BUDESONIDE/FORMOTEROL 80-4.5 MCG 60 PUFF/6.9 GM MDI IH SCH ×2 (00:53→11:21)
[2018-02-27] MEDS: VANCOMYCIN HCL INJ 500 MG VIAL PO SCH ×3 (00:55→12:22)
[2018-02-27] MEDS: INSULIN LISPRO 100 UNIT/ML 3 ML VIAL SUBCUT PRN ×2 (00:57→12:23)
[2018-02-27] MEDS: METRONIDAZOLE 500 MG/NS RTU 500 MG/100 ML RTUPB IV SCH ×2 (06:38→14:36)
--- NOTE | 2018-02-27 07:43 | EKG REPORT ---
SEVERITY:- ABNORMAL ECG - SINUS RHYTHM MULTIFORM VENTRICULAR PREMATURE COMPLEXES NONSPECIFIC IVCD WITH LAD PROBABLE INFERIOR INFARCT, AGE INDETERMINATE CLINICAL CORRELATION NEEDED. NONSPECIFIC ST-T CHANGES ANTEROLATERAL LEADS, SINCE 05/18/15 EKG : Confirmed by: Wilder Robins MD 27-Feb-2018 07:42:48
[2018-02-27] MEDS: ISOSORBIDE MONONITRATE 60 MG TAB.ER.24H PO SCH (08:05)
[2018-02-27] MEDS: FLUTICASONE NASAL SPRAY 50 MCG/SPRY 120 SPRAY/16 GM NASL SCH (11:19)
[2018-02-27] MEDS: PAROXETINE HCL 20 MG TABLET PO SCH (11:20)
[2018-02-27] MEDS: AMLODIPINE BESYLATE 5 MG TABLET PO SCH (11:20)
[2018-02-27] MEDS: FUROSEMIDE 40 MG TABLET PO SCH (11:21)
[2018-02-27] MEDS: GUAIFENESIN 600 MG TABLET.SA PO SCH (11:21)
--- NOTE | 2018-02-27 13:20 | PDOC DISCHARGE SUMMARY ---
General - Admit/Disc Date/PCP Admission Date/Primary Care Provider: 02/20/18 21:06 LEÓN MCFARLAND DO Discharge Date: 02/27/18 - Discharge Diagnosis (1) Cholelithiasis and acute cholecystitis without obstruction Is this a current diagnosis for this admission?: Yes (2) Alcohol induced acute pancreatitis Is this a current diagnosis for this admission?: Yes (3) Acute kidney injury Is this a current diagnosis for this admission?: Yes (4) C. difficile colitis Is this a current diagnosis for this admission?: Yes (5) Type 2 diabetes mellitus Is this a current diagnosis for this admission?: Yes (6) Coronary artery disease Is this a current diagnosis for this admission?: Yes - Additional Information Resuscitation Status: Full Code Home Medications: Albuterol Sulfate [Proair Hfa Inhalation Aerosol 8.5 gm Mdi] 1 puff IH Q4HP PRN 02/21/18 Amlodipine Besylate [Norvasc 5 mg Tablet] 5 mg PO DAILY 02/21/18 Apixaban [Eliquis 5 mg Tablet] 5 mg PO BID 02/21/18 Budesonide/Formoterol Fumarate [Symbicort 80-4.5 Mcg Inhaler] 2 puff IH BID 03/03 Ergocalciferol (Vitamin D2) [Vitamin D2] 50,000 unit PO Q7D 02/21/18 Furosemide [Lasix 40 mg Tablet] 40 mg PO BID 02/21/18 Isosorbide Mononitrate [Imdur 60 mg Tablet.er] 60 mg PO QAM 02/21/18 Metoprolol Tartrate [Lopressor 50 mg Tablet] 50 mg PO Q12H 02/21/18 History of Present Illness History of Present Illness: ISAURO CARREON is a 77 year old male with history of multiple medical problems that will be mentioned below presented to the emergency room with acute onset of recurrent nausea and vomiting with associated epigastric abdominal pain and mild diarrhea with loose bowel movements. He ate [place] food on Monday night which she believes contributed to his vomiting. He admitted to drinking 2 glasses of vodka on Monday night he has been getting chest pain with vomiting but has been chest pain-free in the emergency room. Over the last couple of days he had about 8 episodes of vomiting. It has been black colored. He has been on Eliquis for atrial fibrillation and history of CVAs. He admitted to intermittent dry cough and raw throat feeling with minimal postnasal drip. He denies any fever or chills. No dysuria, oliguria, hematuria or flank pain. No headache, dizziness or blurred vision. Upon presentation to the emergency room is vital signs were within normal as listed except for elevated blood pressure 163/83 that was 120/74 earlier. His labs were remarkable for elevated BUN of 37 and creatinine 1.44 with CO2 31 and chloride of 94. Blood glucose was 140 and his platelets were low at 135. LFTs were within normal. His serum lipase came significantly elevated at 1103. His PT was 15.8 and INR was 1.2 and magnesium level was low at 1.5. LDH was 211 and his amylase was 400. Repeat lipase levels came back 1470.8. He was given 4 mg of Zofran as well as hydration with IV normal saline. Acute abdominal series came back negative for acute abnormalities. His EKG showed normal sinus rhythm with a rate of 66 with PVC and nonspecific intraventricular conduction delay. The patient will be admitted to a medically monitored bed for further evaluation and management Hospital Course Hospital Course: This is a 77 years old male patient presented with chief complaint of intermittent nausea and vomiting and sharp epigastric abdominal pain. His initial blood workup shows markedly elevated lipase level of 1400 for which patient has been treated with bowel rest, IV aggressive hydration and pain management. Since patient continued to have abdominal pain CT scan of the abdomen and pelvis was done and it reported as cholelithiasis and extensive diverticulosis. Surgical consultation was made and patient had laparoscopic cholecystectomy yesterday and it was found that patient has cholecystitis without bile duct obstruction. His postoperative course is smooth. This afternoon I seen patient sitting up in bed enjoying his lunch. He does not have any nausea vomiting or abdominal pain. Patient also being treated for C. difficile colitis was p.o. metronidazole and vancomycin. Patient is stable enough to go home. I will send him home with metronidazole and vancomycin. Physical Exam Vital Signs: Temp Pulse Resp BP Pulse Ox 98.1 F 91 16 151/61 H 94 02/27/18 08:11 02/27/18 08:11 02/27/18 08:11 02/27/18 08:11 02/27/18 08:11 Intake & Output 02/26/18 02/27/18 02/28/18 06:59 06:59 06:59 Intake Total 2242 4295 Output Total 625 510 Balance 9007 0255 Weight 96.5 kg 96.1 kg General appearance: PRESENT: no acute distress, well-developed, well-nourished Head exam: PRESENT: atraumatic, normocephalic Eye exam: PRESENT: conjunctiva pink, scleral icterus Mouth exam: PRESENT: moist Neck exam: ABSENT: carotid bruit, JVD, lymphadenopathy, thyromegaly Respiratory exam: PRESENT: clear to auscultation claire. ABSENT: rales, rhonchi, wheezes Cardiovascular exam: PRESENT: RRR. ABSENT: diastolic murmur, rubs, systolic murmur Pulses: PRESENT: normal dorsalis pedis pul Vascular exam: PRESENT: normal capillary refill GI/Abdominal exam: PRESENT: normal bowel sounds, soft. ABSENT: distended, guarding, mass, organolmegaly, rebound, tenderness Rectal exam: PRESENT: deferred Extremities exam: PRESENT: full ROM. ABSENT: calf tenderness, clubbing, pedal edema Neurological exam: PRESENT: alert, awake, oriented to person, oriented to place , oriented to time, oriented to situation Psychiatric exam: PRESENT: appropriate affect, normal mood. ABSENT: homicidal ideation, suicidal ideation Skin exam: PRESENT: dry, intact, warm. ABSENT: cyanosis, rash Results Laboratory Results: 02/26/18 05:04 02/25/18 04:12 02/27/18 06:27 Troponin I 0.107 Impressions: Acute Abdomen Series 02/20/18 15:08 IMPRESSION: NO RADIOGRAPHIC EVIDENCE FOR ACUTE ABDOMINAL DISEASE. Abdomen Ultrasound 02/20/18 18:29 IMPRESSION: Possible small gallstone versus polyp. The pancreas cannot be seen. Abdomen/Pelvis CT 02/21/18 00:00 IMPRESSION: 1. Cholelithiasis. 2. Extensive diverticulosis coli. Cholangiogram 02/26/18 00:00 IMPRESSION: INTRAOPERATIVE CHOLANGIOGRAM. Qualifiers - * PATIENT BEING DISCHARGED WITH ANY OF THE FOLLOWING DIAGNOSIS: No
[2018-02-27 14:14] VITALS: BP 116/60
== END 2018-02-27 15:10 | disposition home or self-care (01) | DRG 417 ==
LOC: ER 13:10 → EH 21:06 → 4S 02-21 03:07
PROVIDERS: ADMIT Family Medicine; ATTEND Family Medicine
PROC: BF10YZZ Fluoroscopy of Bile Ducts using Other Contrast (ICD-10-PCS; 2018-02-26)
PROC: 0FT44ZZ Resection of Gallbladder, Percutaneous Endoscopic Approach (ICD-10-PCS; principal; 2018-02-26 09:30)
DX: K80.00 Calculus of gallbladder with acute cholecystitis without obstruction (principal); K85.20 Alcohol induced acute pancreatitis without necrosis or infection; N17.9 Acute kidney failure, unspecified; A04.72 Enterocolitis due to Clostridium difficile, not specified as recurrent; I48.91 Unspecified atrial fibrillation; I25.10 Atherosclerotic heart disease of native coronary artery without angina pectoris; E78.5 Hyperlipidemia, unspecified; I10 Essential (primary) hypertension; J44.9 Chronic obstructive pulmonary disease, unspecified; E11.8 Type 2 diabetes mellitus with unspecified complications; F32.9 Major depressive disorder, single episode, unspecified; I25.2 Old myocardial infarction; Z79.01 Long term (current) use of anticoagulants; Z79.52 Long term (current) use of systemic steroids; Z79.899 Other long term (current) drug therapy; Z86.711 Personal history of pulmonary embolism
CPT/HCPCS: 36415; 74022; 74177; 74300; 76705; 790; 80053; 80307; 82150; 82962; 83615; 83690; 83735; 84478; 84484; 85025; 85610; 85730; 87045; 87205; 87493; 88304; 89055; 93005; 93010; 93306; 93976; 99285; J0131; J0330; J1100; J1815; J2250; J2270; J2405; J2704; J3010; J3370; J3475; J3490; J7030; S0164

== ENCOUNTER 2018-04-15 07:54 | Emergency (ER) | payer OTHER, MEDICARE ==
[2018-04-15 08:00] VITALS: BP 139/78
--- NOTE | 2018-04-15 08:16 | ER Document Report ---
HPI - HPI Pain Level: 4 Notes: Patient is a 77-year-old male with no significant past medical history pertaining to his foot or ankle who presents to the ED complaining of first MTP joint pain on the right foot times 3 days. Patient states that he has noticed a little redness in that spot and it is very tender even with light touch and with blankets being on it. Patient states that he has not had this before and denies any injury. Patient states that he has not noticed any abscess, streaks , purulence. Pain does not radiate. Denies any headache, fever, URI, sore throat, chest pain, palpitations, syncope, cough, shortness of breath, wheeze, dyspnea, abdominal pain, nausea/vomiting/diarrhea, urinary retention, dysuria, hematuria, back pain, numbness/tingling, muscle paralysis/weakness, or rash. - ROS Systems Reviewed and Negative: Yes All other systems reviewed and negative - REPRODUCTIVE Reproductive: DENIES: : Past Medical History - Social History Smoking Status: Never Smoker Family History: Reviewed & Not Pertinent, CVA - Past Medical History Cardiac Medical History: Reports: Hx Coronary Artery Disease, Hx Heart Attack - 2006, Hx Hypercholesterolemia, Hx Hypertension, Hx Pulmonary Embolism - x3 last 2007, on Eliquis Pulmonary Medical History: Reports: Hx Asthma, Hx COPD, Hx Tuberculosis Endocrine Medical History: Reports: Hx Diabetes Mellitus Type 2 Renal/ Medical History: Denies: Hx Peritoneal Dialysis Psychiatric Medical History: Reports: Hx Depression Past Surgical History: Reports: Hx Abdominal Surgery - colon polyps, Hx Cardiac Surgery - CABGx3, Hx Coronary Artery Bypass Graft - 2006, Hx Open Heart Surgery , Hx Rectal Surgery - colon polyps, Hx Urinary Tract Surgery - Immunizations Hx Diphtheria, Pertussis, Tetanus Vaccination: Yes Hx Pneumococcal Vaccination: 07/17/09 Vertical Provider Document - CONSTITUTIONAL Agree With Documented VS: Yes Notes: PHYSICAL EXAMINATION: GENERAL: Well-appearing, well-nourished and in no acute distress. LUNGS: Breath sounds clear to auscultation bilaterally and equal. No wheezes rales or rhonchi. HEART: Regular rate and rhythm without murmurs, rubs, gallops. Musculoskeletal: Rt foot/ankle: FROM to passive/active. Strength 5+/5. N/V intact distal. + tenderness to the rt MTP joint with mild erythema. No ecchymosis, abscess, induration, streaks, or purulence. + hypersensitivity to touch. No tenderness otherwise to the foot/ankle. Achilles intact. Extremities: No cyanosis, clubbing, or edema b/l. Peripheral pulses 2+. Capillary refill less than 3 seconds. NEUROLOGICAL: Normal speech, normal gait. Normal sensory, motor exams PSYCH: Normal mood, normal affect. SKIN: Warm, Dry, normal turgor, no rashes or lesions noted. - INFECTION CONTROL TRAVEL OUTSIDE OF THE [place] IN LAST 30 DAYS: No Course - Re-evaluation Re-evalutation: 04/15/18 08:54 Patient is an afebrile, well-hydrated, 77-year-old male who presents to the ED with Rt MTP joint pain, suspect gout. Vitals are acceptable without any significant tachycardia, tachypnea, or hypoxia. PE is otherwise unremarkable for any neurovascular compromise, obvious tendon/ligament rupture, obvious fracture/dislocation, septic joint. X-ray was unremarkable for any acute pathology. Patient is nontoxic-appearing. Patient is able to ambulate and weight-bear with aide of a SPC. No other labs or imaging warranted at this time based on H&P. Pt is on blood thinners and aspirin. I will send him home with a steroid taper. Conservative measures otherwise for symptoms. Patient is aware that he needs to monitor for any signs or symptoms of infection and seek medical attention if so. Recheck with your PCM in 3-5 days. Consider consult orthopedics. Return to the ED with any worsening/concerning symptoms otherwise as reviewed in discharge. Patient is in agreement. - Vital Signs Vital signs: Temp Pulse Resp BP Pulse Ox 98.2 F 70 16 139/78 H 96 04/15/18 07:59 04/15/18 07:59 04/15/18 07:59 04/15/18 07:59 04/15/18 07:59 Discharge - Discharge Clinical Impression: Toe pain, right Condition: Stable Disposition: HOME, SELF-CARE Instructions: Gout ([facility]) Additional Instructions: Rest, Ice, Compression, Elevation Tylenol/ibuprofen as needed Light stretches daily Strength exercises as able Moist heat and massage may help F/u with your PCP in 3-5 days for a recheck Consider consult(s) with Orthopedics/physical therapy for ongoing/worsening symptoms Return to the ED with any worsening symptoms and/or development of fever, headache, chest pain, palpitations, syncope, shortness of breath, trouble breathing, abdominal pain, n/v/d, muscle weakness/paralysis, numbness/tingling, swelling, worsening redness, abscess, red streaks, purulent discharge, or other worsening symptoms that are concerning to you. Prescriptions: Prednisone 20 mg PO ASDIR #18 tablet Forms: Elevated Blood Pressure Referrals: LEÓN MCFARLAND DO [Primary Care Provider] - Follow up as needed [facility] [Provider Group] - Follow up as needed
--- NOTE | 2018-04-15 08:36 | RADIOLOGY REPORT (SQ) ---
EXAM DESCRIPTION: FOOT RIGHT COMPLETE COMPLETED DATE/TIME: 04/15/2018 8:20 am REASON FOR STUDY: rt foot pain COMPARISON: None. NUMBER OF VIEWS: Three views right foot. LIMITATIONS: None. FINDINGS: Mild degenerative changes in the great toe MP joint. No fracture or subluxation or disloc ation. Plantar calcaneal spurring. Osteopenic. OTHER: No other significant finding. IMPRESSION: No acute findings evident. TECHNICAL DOCUMENTATION: JOB ID: [id number] Reading location - IP/workstation name: [email or web address]
== END 2018-04-15 09:13 | disposition home or self-care (01) ==
LOC: ER 07:54
DX: M25.571 Pain in right ankle and joints of right foot (principal); I25.10 Atherosclerotic heart disease of native coronary artery without angina pectoris; I10 Essential (primary) hypertension; E11.9 Type 2 diabetes mellitus without complications; J44.9 Chronic obstructive pulmonary disease, unspecified; Z95.1 Presence of aortocoronary bypass graft; L53.9 Erythematous condition, unspecified
CPT/HCPCS: 99283

== ENCOUNTER 2018-12-18 12:29 | Emergency (ER) | payer OTHER, MEDICARE ==
--- NOTE | 2018-12-18 13:00 | ER Document Report ---
ED Medical Screen (RME) - General Chief Complaint: Shortness Of Breath Stated Complaint: COUGH UP BLOOD, SHORT OF BREATH Time Seen by Provider: 12/18/18 12:52 Primary Care Provider: LEÓN MCFARLAND DO [Primary Care Provider] - Follow up as needed Mode of Arrival: Ambulatory Information source: Patient Notes: Patient presents the emergency department with complaints of coughing up blood for the past 2 days. He reports history of TB 15 years ago. Also reports history of PEs. He has had a filter placed but it does not work. Patient is on Eliquis. Patient complains he is short of breath denies chest pain. Reports some night sweats. No recent weight loss. No other complaints such as fever vomiting diarrhea. [facility] have greeted and performed a rapid initial assessment of this patient. A comprehensive ED assessment and evaluation of the patient, analysis of test results and completion of the medical decision making process will be conducted by additional ED providers. Dictation of this chart was performed using voice recognition software; therefore, there may be some unintended grammatical errors. TRAVEL OUTSIDE OF THE [place] IN LAST 30 DAYS: No - Related Data Allergies/Adverse Reactions: ciprofloxacin [From Cipro] Allergy (Verified 12/18/18 12:42) enalapril maleate [From Vasotec] Allergy (Verified 12/18/18 12:42) niacin [From Niaspan] Allergy (Verified 12/18/18 12:42) Past Medical History - Social History Frequency of alcohol use: None Drug Abuse: None - Past Medical History Cardiac Medical History: Reports: Hx Coronary Artery Disease, Hx Heart Attack - 2006, Hx Hypercholesterolemia, Hx Hypertension, Hx Pulmonary Embolism - x3 last 2007, on Eliquis Pulmonary Medical History: Reports: Hx Asthma, Hx COPD, Hx Tuberculosis Endocrine Medical History: Reports: Hx Diabetes Mellitus Type 2 Renal/ Medical History: Denies: Hx Peritoneal Dialysis Psychiatric Medical History: Reports: Hx Depression Past Surgical History: Reports: Hx Abdominal Surgery - colon polyps, Hx Cardiac Surgery - CABGx1, Hx Coronary Artery Bypass Graft - 2006, Hx Open Heart Surgery, Hx Rectal Surgery - colon polyps, Hx Urinary Tract Surgery - Immunizations Hx Diphtheria, Pertussis, Tetanus Vaccination: Yes History of Influenza Vaccine for 04/2017 - 09/2017 Season: Refused Physical Exam - Vital signs Vitals: Temp Pulse Resp BP Pulse Ox 98.5 F 63 16 156/94 H 92 12/18/18 12:44 12/18/18 12:44 12/18/18 12:44 12/18/18 12:44 12/18/18 12:44 Course - Vital Signs Vital signs: Temp Pulse Resp BP Pulse Ox 98.5 F 63 16 156/94 H 92 12/18/18 12:44 12/18/18 12:44 12/18/18 12:44 12/18/18 12:44 12/18/18 12:44 Doctor's Discharge - Discharge Referrals: LEÓN MCFARLAND DO [Primary Care Provider] - Follow up as needed
[2018-12-18 13:32] LABS: ABSOLUTE EOSINOPHILS # (AUTO) 0.3 10^3/uL (0.0-0.6); ABSOLUTE LYMPHOCYTES (AUTO) 1.6 10^3/uL (0.5-4.7); ABSOLUTE MONOCYTES (AUTO) 0.6 10^3/uL (0.1-1.4); ABSOLUTE NEUT (AUTO) 2.2 10^3/uL (1.7-8.2); BASOPHILS % (AUTO) 0.4 % (0-2); HEMATOCRIT 39.9 % (37.9-51.0); HEMOGLOBIN 13.3 g/dL (13.5-17.0); LYMPHOCYTES % (AUTO) 34.3 % (13-45); MEAN CORPUSCULAR HEMOGLOBIN 32.6 pg (27.0-33.4); MEAN CORPUSCULAR HGB CONC 33.3 g/dL (32.0-36.0); MEAN CORPUSCULAR VOLUME 98 fl (80-97); MONOCYTES % (AUTO) 12.4 % (3-13); PLATELET COUNT 205 10^3/uL (150-450); RED BLOOD COUNT 4.08 10^6/uL (4.35-5.55); SEGMENTED NEUTROPHILS % (AUTO) 46.9 % (42-78); TOTAL CELLS COUNTED % (AUTO) 100 %; WHITE BLOOD COUNT 4.8 10^3/uL (4.0-10.5)
--- NOTE | 2018-12-18 13:44 | RADIOLOGY REPORT (SQ) ---
EXAM DESCRIPTION: CHEST 3 VIEWS COMPLETED DATE/TIME: 12/18/2018 1:25 pm REASON FOR STUDY: cough, hemoptysis hx TB COMPARISON: 05/18/2015 EXAM PARAMETERS: NUMBER OF VIEWS: two views TECHNIQUE: Digital Frontal and Lateral radiographic views of the chest acquired. RADIATION DOSE: NA LIMITATIONS: none FINDINGS: LUNGS AND PLEURA: No opacities, masses or pneumothorax. No pleural effusion. MEDIASTINUM AND HILAR STRUCTURES: No masses or contour abnormalities. HEART AND VASCULAR STRUCTURES: Heart normal size. No evidence for failure. BONES: No acute findings. HARDWARE: Sternotomy wires. OTHER: No other significant finding. IMPRESSION: NO ACUTE RADIOGRAPHIC FINDING IN THE CHEST. TECHNICAL DOCUMENTATION: JOB ID: [id number] [employer]- All Rights Reserved Reading location - IP/workstation name: [email or web address]
--- NOTE | 2018-12-18 13:55 | EKG REPORT ---
SEVERITY:- ABNORMAL ECG - SINUS RHYTHM ATRIAL PREMATURE COMPLEX NONSPECIFIC IVCD WITH LAD : Confirmed by: Wilder Robins MD 18-Dec-2018 13:54:17
[2018-12-18 14:24] LABS: ALANINE AMINOTRANSFERASE 17 U/L (21-72); ALBUMIN 3.9 g/dL (3.5-5.0); ALKALINE PHOSPHATASE 57 U/L (38-126); ANION GAP 11 (5-19); ASPARTATE AMINO TRANSFERASE 31 U/L (17-59); BILIRUBIN,DIRECT 0.3 mg/dL (0.0-0.4); BILIRUBIN,TOTAL 1.1 mg/dL (0.2-1.3); BLOOD UREA NITROGEN 13 mg/dL (7-20); CALCIUM 8.3 mg/dL (8.4-10.2); CARBON DIOXIDE 30 mmol/L (22-30); CHLORIDE 104 mmol/L (98-107); CREATINE KINASE 128 U/L (55-170); GLUCOSE 86 mg/dL (75-110); POTASSIUM 3.6 mmol/L (3.6-5.0); SODIUM 144.7 mmol/L (137-145); TOTAL PROTEIN 6.5 g/dL (6.3-8.2)
--- NOTE | 2018-12-18 15:14 | ER Document Report ---
ED General - General Chief Complaint: Shortness Of Breath Stated Complaint: COUGH UP BLOOD, SHORT OF BREATH Time Seen by Provider: 12/18/18 12:52 Primary Care Provider: LEÓN MCFARLAND DO [Primary Care Provider] - Follow up as needed Mode of Arrival: Ambulatory Notes: Patient is a 77-year-old male with history of CAD, hypertension, PE, COPD that presents to the emergency department for chief complaint of cough and shortness of breath. Patient states that he has been having shortness of breath over the past 2 days, then started having a cough, he said some mild nausea with it as well, but denies having any chest pain. Today he states he is coughing had a few flecks of blood in it, but no significant hematemesis or hemoptysis. [facility] today, mention his symptoms and they advised him to come to the emergency department. He does have a history of PE, but is been on Eliquis, and has not had a PE in over 7 years, he denies having any pain associated with the symptoms today. He has been compliant with his medications otherwise. He also noticed that his legs have been more swollen on both sides recently, and thinks it may have something to do with his shortness of breath. It does seem to be worse with exertion, and lying more flat. Past Medical History: COPD, pulmonary embolism, CAD, CHF Past Surgical History: CABG Social History: Former smoker, quit many years ago, denies alcohol or drug use, sees the [facility]. Family History: Reviewed and noncontributory for presenting illness Allergies: Reviewed, see documented allergy list. REVIEW OF SYSTEMS: Other than noted above, the 12 point review of systems was reviewed with the patient and were negative, all pertinent findings are included in the HPI. PHYSICAL EXAMINATION: Vital signs reviewed, nursing noted reviewed. GENERAL: Well-appearing, well-nourished and in no acute distress. HEAD: Atraumatic, normocephalic. EYES: Eyes appear normal, extraocular movements intact, sclera anicteric, conju nctiva are normal. ENT: nares patent, oropharynx clear without exudates. Moist mucous membranes. NECK: Normal range of motion, supple without lymphadenopathy LUNGS: Breath sounds clear to auscultation bilaterally and equal. No wheezes rales or rhonchi. HEART: Regular rate and rhythm without murmurs ABDOMEN: Soft, nontender, normoactive bowel sounds. No rebound, guarding, or rigidity. No masses appreciated. EXTREMITIES: Nontender, good range of motion, 2+ bilateral lower extremity edema, equal NEUROLOGICAL: No focal neurological deficits. Moves all extremities spontaneously Motor and sensory grossly intact on exam. PSYCH: Normal mood, normal affect. SKIN: Warm, Dry, normal turgor, no rashes or lesions noted on exposed skin TRAVEL OUTSIDE OF THE [place] IN LAST 30 DAYS: No - Related Data Allergies/Adverse Reactions: ciprofloxacin [From Cipro] Allergy (Verified 12/18/18 12:42) enalapril maleate [From Vasotec] Allergy (Verified 12/18/18 12:42) niacin [From Niaspan] Allergy (Verified 12/18/18 12:42) Past Medical History - General Information source: Patient - Social History Smoking Status: Current Some Day Smoker Frequency of alcohol use: None Drug Abuse: None Family History: Reviewed & Not Pertinent, CVA Patient has suicidal ideation: No Patient has homicidal ideation: No - Past Medical History Cardiac Medical History: Reports: Hx Coronary Artery Disease, Hx Heart Attack - 2006, Hx Hypercholesterolemia, Hx Hypertension, Hx Pulmonary Embolism - x3 last 2007, on Eliquis Pulmonary Medical History: Reports: Hx Asthma, Hx COPD, Hx Tuberculosis Endocrine Medical History: Reports: Hx Diabetes Mellitus Type 2 Renal/ Medical History: Denies: Hx Peritoneal Dialysis Psychiatric Medical History: Reports: Hx Depression Past Surgical History: Reports: Hx Abdominal Surgery - colon polyps, Hx Cardiac Surgery - CABGx1, Hx Coronary Artery Bypass Graft - 2006, Hx Open Heart Surgery, Hx Rectal Surgery - colon polyps, Hx Urinary Tract Surgery - Immunizations Hx Diphtheria, Pertussis, Tetanus Vaccination: Yes Hx Pneumococcal Vaccination: 07/17/09 Physical Exam - Vital signs Vitals: Temp Pulse Resp BP Pulse Ox 98.5 F 63 16 156/94 H 92 12/18/18 12:44 12/18/18 12:44 12/18/18 12:44 12/18/18 12:44 12/18/18 12:44 Course - Re-evaluation Re-evalutation: Patient seen and examined vital signs reviewed. Laboratory data and/or imaging were ordered as appropriate for the patient's presenting symptoms and complaint, with consideration of any critical or life threatening conditions that may be associated with their obtained history and exam as noted above. Results were reviewed when available and demonstrated mild elevation in BNP, I reviewed the chest x-ray, there was pulmonary vascular prominence, and clinically the patient did look fluid overloaded, but only to a mild degree. The patient was re-evaluated and was stable, not hypoxic Evaluation was most consistent with acute exacerbation of CHF, fluid overload, dyspnea on exertion, will encourage the patient to take his Lasix 40 mg twice daily which is how was prescribed however he is only been taking it once daily and sometimes he does not take it at all, which likely led to his mild degree of fluid overload. Results were discussed with the patient at this point, after careful consideration I feel that that patient can be discharged from the emergency department, the patient was educated treatments and reasons to return to the emergency department based on their presumed diagnosis as noted above, they were advised to followup with a primary care physician in 2-3 days. Patient was agreeable to plan of care. *Note is created using voice recognition software and may contain spelling, syntax or grammatical errors. Laboratory 12/18/18 12/18/18 12/18/18 13:05 13:05 13:05 WBC 4.8 RBC 4.08 L Hgb 13.3 L Hct 39.9 MCV 98 H MCH 32.6 MCHC 33.3 RDW 16.0 H Plt Count 205 Seg Neutrophils % 46.9 Lymphocytes % 34.3 Monocytes % 12.4 Eosinophils % 6.0 Basophils % 0.4 Absolute Neutrophils 2.2 Absolute Lymphocytes 1.6 Absolute Monocytes 0.6 Absolute Eosinophils 0.3 Absolute Basophils 0.0 Sodium Cancelled Potassium Cancelled Chloride Cancelled Carbon Dioxide Cancelled Anion Gap Cancelled BUN Cancelled Creatinine Cancelled Est GFR ( Amer) Cancelled Est GFR (Non-Af Amer) Cancelled Glucose Cancelled Calcium Cancelled Total Bilirubin Cancelled Direct Bilirubin Cancelled Neonat Total Bilirubin Cancelled Neonat Direct Bilirubin Cancelled Neonat Indirect Bili Cancelled AST Cancelled ALT Cancelled Alkaline Phosphatase Cancelled Creatine Kinase Cancelled Troponin I Cancelled NT-Pro-B Natriuret Pep Total Protein Cancelled Albumin Cancelled 12/18/18 12/18/18 12/18/18 13:50 13:50 13:50 WBC RBC Hgb Hct MCV MCH MCHC RDW Plt Count Seg Neutrophils % Lymphocytes % Monocytes % Eosinophils % Basophils % Absolute Neutrophils Absolute Lymphocytes Absolute Monocytes Absolute Eosinophils Absolute Basophils Sodium 144.7 Potassium 3.6 Chloride 104 Carbon Dioxide 30 Anion Gap 11 BUN 13 Creatinine 1.05 Est GFR ( Amer) > 60 Est GFR (Non-Af Amer) > 60 Glucose 86 Calcium 8.3 L Total Bilirubin 1.1 Direct Bilirubin 0.3 Neonat Total Bilirubin Not Reportable Neonat Direct Bilirubin Not Reportable Neonat Indirect Bili Not Reportable AST 31 ALT 17 L Alkaline Phosphatase 57 Creatine Kinase 128 Troponin I 0.014 NT-Pro-B Natriuret Pep 711 H Total Protein 6.5 Albumin 3.9 Apical Lordotic X-Ray 12/18/18 12:55 IMPRESSION: NO ACUTE RADIOGRAPHIC FINDING IN THE CHEST. - Vital Signs Vital signs: Temp Pulse Resp BP Pulse Ox 98.5 F 63 16 156/94 H 92 12/18/18 12:44 12/18/18 12:44 12/18/18 12:44 12/18/18 12:44 12/18/18 12:44 - Laboratory Result Diagrams: 12/18/18 13:05 12/18/18 13:50 Laboratory results interpreted by me: 12/18/18 12/18/18 12/18/18 13:05 13:50 13:50 RBC 4.08 L Hgb 13.3 L MCV 98 H RDW 16.0 H Calcium 8.3 L ALT 17 L NT-Pro-B Natriuret Pep 711 H Discharge - Discharge Clinical Impression: Acute exacerbation of CHF (congestive heart failure) Qualifiers: Heart failure type: unspecified Qualified Code(s): I50.9 - Heart failure, unspecified Condition: Stable Disposition: HOME, SELF-CARE Instructions: Congestive Heart Failure ([facility]) Additional Instructions: Please start taking your Lasix 40 mg twice daily, for at least the next week, to promote fluid to come off both your lungs and off your legs, if you start to notice wrinkling in your lower legs, you can go back to taking the Lasix 40 mg once daily. Please follow-up with the [facility] sometime next week. Referrals: LEÓN MCFARLAND DO [Primary Care Provider] - Follow up in 3-5 days
[2018-12-18 15:51] VITALS: BP 155/80
== END 2018-12-18 15:51 | disposition home or self-care (01) ==
LOC: ER 12:29
DX: I50.9 Heart failure, unspecified (principal); R06.02 Shortness of breath; R05 Cough; F17.200 Nicotine dependence, unspecified, uncomplicated; I25.10 Atherosclerotic heart disease of native coronary artery without angina pectoris; E78.00 Pure hypercholesterolemia, unspecified; I11.0 Hypertensive heart disease with heart failure; J44.9 Chronic obstructive pulmonary disease, unspecified; E11.9 Type 2 diabetes mellitus without complications; Z86.711 Personal history of pulmonary embolism; Z79.01 Long term (current) use of anticoagulants; Z95.1 Presence of aortocoronary bypass graft; Z88.3 Allergy status to other anti-infective agents; I25.2 Old myocardial infarction
CPT/HCPCS: 36415; 71047; 80053; 82550; 83880; 84484; 85025; 93005; 93010; 99283

== ENCOUNTER 2018-12-23 15:59 | Inpatient (IN) | payer OTHER, MEDICARE ==
[2018-12-23] MEDS ORDERED: ONDANSETRON HCL INJ/PF 4 MG/2 ML SDV IV ONE (16:29)
[2018-12-23] MEDS ORDERED: NORMAL SALINE 250 ML IV ONE (16:30)
--- NOTE | 2018-12-23 16:30 | ER Document Report ---
ED Medical Screen (RME) - General Chief Complaint: Nausea/Vomiting/Diarrhea Stated Complaint: VOMITING Time Seen by Provider: 12/23/18 16:22 Primary Care Provider: LEÓN MCFARLAND DO [Primary Care Provider] - Follow up as needed TRAVEL OUTSIDE OF THE [place] IN LAST 30 DAYS: No - HPI Notes: 12/23/18 16:27 Patient is a 77-year-old male with a history of CAD (previous CABG), hypertens ion, PE, COPD, CHF who presents complaining of watery diarrhea for 5 days, nausea/vomiting all day today, and palpitations throughout the day today as well intermittently. Patient was seen about 5 days ago and had mild fluid overload at that time. Patient states that he has not had any shortness of breath or trouble breathing. He is able to urinate normally. Denies REINA, fever, neck pain, URI, CP, SOB, dysuria, back pain, or rash. I have treated and performed a rapid initial assessment of this patient. A comprehensive ED assessment and evaluation of the patient, analysis of test results and completion of medical decision making process will be conducted by additional ED providers. PHYSICAL EXAMINATION: GENERAL: Well-appearing, well-nourished and in no acute distress. A&Ox4. Answers questions appropriately. LUNGS: mild diminishment at base b/l HEART: Regular rate and rhythm without murmurs, rubs, gallops. ABDOMEN: Soft, nondistended abdomen. No guarding, no rebound. Normal bowel sounds present. No CVA tenderness bilaterally. Grossly nontender (cannot elicit thorough abd exam w/o bed, however). Extremities: No cyanosis, clubbing, or edema b/l. NEUROLOGICAL: Normal speech, normal gait. PSYCH: Normal mood, normal affect. - Related Data Allergies/Adverse Reactions: ciprofloxacin [From Cipro] Allergy (Verified 12/18/18 12:42) enalapril maleate [From Vasotec] Allergy (Verified 12/18/18 12:42) niacin [From Niaspan] Allergy (Verified 12/18/18 12:42) Past Medical History - Past Medical History Cardiac Medical History: Reports: Hx Coronary Artery Disease, Hx Heart Attack - 2006, Hx Hypercholesterolemia, Hx Hypertension, Hx Pulmonary Embolism - x3 last 2007, on Eliquis Pulmonary Medical History: Reports: Hx Asthma, Hx COPD, Hx Tuberculosis Endocrine Medical History: Reports: Hx Diabetes Mellitus Type 2 Renal/ Medical History: Denies: Hx Peritoneal Dialysis Psychiatric Medical History: Reports: Hx Depression Past Surgical History: Reports: Hx Abdominal Surgery - colon polyps, Hx Cardiac Surgery - CABGx1, Hx Coronary Artery Bypass Graft - 2007, Hx Open Heart Surgery, Hx Rectal Surgery - colon polyps, Hx Urinary Tract Surgery - Immunizations Hx Diphtheria, Pertussis, Tetanus Vaccination: Yes History of Influenza Vaccine for 04/2017 - 09/2017 Season: Refused Physical Exam - Vital signs Vitals: Temp Pulse Resp BP Pulse Ox 98.5 F 80 18 128/61 H 95 12/23/18 16:14 12/23/18 16:14 12/23/18 16:14 12/23/18 16:14 12/23/18 16:14 Course - Vital Signs Vital signs: Temp Pulse Resp BP Pulse Ox 98.5 F 80 18 128/61 H 95 12/23/18 16:14 12/23/18 16:14 12/23/18 16:14 12/23/18 16:14 12/23/18 16:14 Doctor's Discharge - Discharge Referrals: LEÓN MCFARLAND DO [Primary Care Provider] - Follow up as needed
--- NOTE | 2018-12-23 17:04 | EKG REPORT ---
SEVERITY:- ABNORMAL ECG - SINUS RHYTHM MULTIPLE VENTRICULAR PREMATURE COMPLEXES PROBABLE INFERIOR INFARCT, AGE INDETERMINATE LATERAL LEADS ARE ALSO INVOLVED PROLONGED QT INTERVAL : Confirmed by: Wilder Robins MD 23-Dec-2018 17:03:00
--- NOTE | 2018-12-23 17:40 | RADIOLOGY REPORT (SQ) ---
EXAM DESCRIPTION: CHEST SINGLE VIEW COMPLETED DATE/TIME: 12/23/2018 5:20 pm REASON FOR STUDY: palpitations COMPARISON: 12/18/2018 TECHNIQUE: Single frontal radiographic view of the chest acquired. NUMBER OF VIEWS: One view. LIMITATIONS: None. FINDINGS: LUNGS AND PLEURA: No pneumothorax. Similar left basilar -subpleural scarring. No consoli dation or acute pleural effusion. MEDIASTINUM AND HILAR STRUCTURES: Stable. HEART AND VASCULAR STRUCTURES: Stable. BONES: No acute findings. HARDWARE: CABG. OTHER: No other significant finding. IMPRESSION: NO ACUTE FINDINGS. TECHNICAL DOCUMENTATION: JOB ID: [id number] [place]-72 2010 [employer]- All Rights Reserved Reading location - IP/workstation name: [email or web address]
[2018-12-23 17:56] LABS: ABSOLUTE MONOCYTES (AUTO) 0.7 10^3/uL (0.1-1.4); ABSOLUTE NEUT (AUTO) 9.7 10^3/uL (1.7-8.2); BASOPHILS % (AUTO) 0.1 % (0-2); HEMATOCRIT 43.4 % (37.9-51.0); LYMPHOCYTES % (AUTO) 9.1 % (13-45); MEAN CORPUSCULAR HEMOGLOBIN 32.4 pg (27.0-33.4); MEAN CORPUSCULAR HGB CONC 32.3 g/dL (32.0-36.0); MEAN CORPUSCULAR VOLUME 100 fl (80-97); PLATELET COUNT 192 10^3/uL (150-450); RED BLOOD COUNT 4.33 10^6/uL (4.35-5.55); RED CELL DISTRIBUTION WIDTH 16.1 % (11.5-14.0); SEGMENTED NEUTROPHILS % (AUTO) 84.8 % (42-78); TOTAL CELLS COUNTED % (AUTO) 100 %; WHITE BLOOD COUNT 11.5 10^3/uL (4.0-10.5)
[2018-12-23 18:13] LABS: ALANINE AMINOTRANSFERASE 33 U/L (21-72); ALBUMIN 4.7 g/dL (3.5-5.0); ALKALINE PHOSPHATASE 82 U/L (38-126); ASPARTATE AMINO TRANSFERASE 92 U/L (17-59); BILIRUBIN,DIRECT 0.6 mg/dL (0.0-0.4); BILIRUBIN,TOTAL 1.2 mg/dL (0.2-1.3); BLOOD UREA NITROGEN 34 mg/dL (7-20); CARBON DIOXIDE 14 mmol/L (22-30); CHLORIDE 90 mmol/L (98-107); GLUCOSE 136 mg/dL (75-110); LIPASE 55.2 U/L (23-300); POTASSIUM 4.4 mmol/L (3.6-5.0); SODIUM 140.6 mmol/L (137-145); TOTAL PROTEIN 7.6 g/dL (6.3-8.2)
[2018-12-23 18:14] LABS: ANION GAP 37 (5-19)
[2018-12-23] MEDS ORDERED: RINGERS SOLUTION,LACTATED 500 ML IV ONE (19:14)
[2018-12-23 19:49] LABS: VENOUS BLOOD BASE EXCESS -10.1 mmol/L; VENOUS BLOOD HCO3 15.4 mmol/L (20-32); VENOUS BLOOD PCO2 33.2 mmHg (35-63); VENOUS BLOOD PH 7.29 (7.30-7.42)
[2018-12-23] MEDS ORDERED: METOCLOPRAMIDE HCL INJ/PF 10 MG/2 ML SDV IV ONE (20:19)
--- NOTE | 2018-12-23 20:47 | ER Document Report ---
ED General - General Chief Complaint: Nausea/Vomiting/Diarrhea Stated Complaint: VOMITING Time Seen by Provider: 12/23/18 16:22 Notes: Patient is a 77-year-old male with a past medical history of hypertension, coronary artery disease, prior pulmonary embolus with IVC filter in place, presents with 2 to 3 days of nausea, vomiting, diarrhea and intermittent abdominal cramping. Patient states that he also feels very dehydrated and lightheaded. States he has been having difficulty tolerating any oral intake since the onset of his symptoms. States he was seen in the emergency department approximately 1 week ago for the same, had some improvement after discharge but that his symptoms did recur several days ago. Regards him as being severe, constant, not improved or worsened by anything. Has not seen his primary care doctor regarding today's concerns. Denies any current focal abdominal pain. Has not had fever. TRAVEL OUTSIDE OF THE [place] IN LAST 30 DAYS: No - Related Data Allergies/Adverse Reactions: ciprofloxacin [From Cipro] Allergy (Verified 12/23/18 20:44) enalapril maleate [From Vasotec] Allergy (Verified 12/23/18 20:44) niacin [From Niaspan] Allergy (Verified 12/23/18 20:44) Past Medical History - General Information source: Patient - Social History Smoking Status: Current Every Day Smoker Frequency of alcohol use: Heavy Drug Abuse: None Family History: Reviewed & Not Pertinent, CVA Patient has suicidal ideation: No Patient has homicidal ideation: No - Past Medical History Cardiac Medical History: Reports: Hx Coronary Artery Disease, Hx Heart Attack - 2006, Hx Hypercholesterolemia, Hx Hypertension, Hx Pulmonary Embolism - x3 last 2007, on Eliquis Pulmonary Medical History: Reports: Hx Asthma, Hx COPD, Hx Tuberculosis Endocrine Medical History: Reports: Hx Diabetes Mellitus Type 2 Renal/ Medical History: Denies: Hx Peritoneal Dialysis Psychiatric Medical History: Reports: Hx Depression Past Surgical History: Reports: Hx Abdominal Surgery - colon polyps, Hx Cardiac Surgery - CABGx1, Hx Coronary Artery Bypass Graft - 2006, Hx Open Heart Surgery, Hx Rectal Surgery - colon polyps, Hx Urinary Tract Surgery - Immunizations Hx Diphtheria, Pertussis, Tetanus Vaccination: Yes Hx Pneumococcal Vaccination: 07/17/09 Review of Systems - Review of Systems Notes: Constitutional: Negative for fever. Positive for lightheadedness HENT: Negative for sore throat. Eyes: Negative for visual changes. Cardiovascular: Negative for chest pain. Respiratory: Negative for shortness of breath. Gastrointestinal: Positive for vomiting and diarrhea Genitourinary: Negative for dysuria. Musculoskeletal: Negative for back pain. Skin: Negative for rash. Neurological: Negative for headaches, weakness or numbness. 10 point ROS negative except as marked above and in HPI. Physical Exam - Vital signs Vitals: Temp Pulse Resp BP Pulse Ox 98.5 F 80 18 128/61 H 95 12/23/18 16:14 12/23/18 16:14 12/23/18 16:14 12/23/18 16:14 12/23/18 16:14 Interpretation: Normal Notes: PHYSICAL EXAMINATION: GENERAL: Appears somewhat unwell but in no acute distress HEAD: Atraumatic, normocephalic. EYES: Pupils equal round and reactive to light, extraocular movements intact, sclera anicteric, conjunctiva are normal. ENT: nares patent, oropharynx clear without exudates. Moderately dry mucous membranes. NECK: Normal range of motion, supple without lymphadenopathy LUNGS: Breath sounds clear to auscultation bilaterally and equal. No wheezes rales or rhonchi. HEART: Regular rate and rhythm without murmurs ABDOMEN: Soft, nontender, normoactive bowel sounds. No guarding, no rebound. N o masses appreciated. EXTREMITIES: Normal range of motion, no pitting or edema. No cyanosis. NEUROLOGICAL: No focal neurological deficits. Moves all extremities spontaneously and on command. PSYCH: Normal mood, normal affect. SKIN: Warm, Dry, normal turgor, no rashes or lesions noted. Course - Re-evaluation Re-evalutation: 12/23/18 20:47 Patient presents with nausea, vomiting, diarrhea found to have prerenal azotemia with a metabolic acidosis likely lactic acidosis in origin. Patient denies any abdominal pain by history, has no focal abdominal tenderness on exam. Initial vitals do show that the patient has no significant vital sign derangements. On exam appears clinically quite dehydrated. Stool studies pending. CT scan of the abdomen pelvis without contrast will be obtained given degree of lactate elevation the persistency of the patient's symptoms. He is being gently rehydrated as he does have a history of CHF with volume overload in the past. Initial 250 cc bolus given in triage, second 500 cc bolus will be given now. Will discuss with the hospitalist for admission. 12/23/18 21:59 CT abdomen pelvis does demonstrate sigmoid diverticulitis likely the origin of his vomiting, diarrhea and intermittent abdominal cramping. Vitals remain within acceptable limits. Case has been discussed with Dr. Cooper who is accepted the patient to [facility]. - Vital Signs Vital signs: Temp Pulse Resp BP Pulse Ox 98.6 F 76 18 156/86 H 94 12/23/18 23:46 12/23/18 23:46 12/23/18 23:46 12/23/18 23:46 12/23/18 23:46 - Laboratory Result Diagrams: 12/23/18 17:50 12/23/18 17:50 Laboratory results interpreted by me: 12/23/18 12/23/18 12/23/18 17:50 17:50 19:36 WBC 11.5 H RBC 4.33 L MCV 100 H RDW 16.1 H Seg Neutrophils % 84.8 H Lymphocytes % 9.1 L Absolute Neutrophils 9.7 H VBG pH VBG pCO2 VBG HCO3 Chloride 90 L Carbon Dioxide 14 L Anion Gap 37 H BUN 34 H Creatinine 2.52 H Est GFR ( Amer) 30 L Est GFR (Non-Af Amer) 25 L Glucose 136 H Lactic Acid 5.5 H Calcium 8.0 L Direct Bilirubin 0.6 H AST 92 H Urine Ketones Urine Blood 12/23/18 12/23/18 19:36 20:46 WBC RBC MCV RDW Seg Neutrophils % Lymphocytes % Absolute Neutrophils VBG pH 7.29 L VBG pCO2 33.2 L VBG HCO3 15.4 L Chloride Carbon Dioxide Anion Gap BUN Creatinine Est GFR ( Amer) Est GFR (Non-Af Amer) Glucose Lactic Acid Calcium Direct Bilirubin AST Urine Ketones 20 H Urine Blood SMALL H - Diagnostic Test Radiology reviewed: Reports reviewed - EKG Interpretation by Me Additional EKG results interpreted by me: 12/24/18 01:25 Sinus rhythm, rate 78, PVCs, no ST elevations or depressions. QT prolonged at 534. Discharge - Discharge Clinical Impression: Acute kidney injury, Metabolic acidosis, Lactic acidosis, Sigmoid divert iculitis Condition: Fair Disposition: ADMITTED INPATIENT Admitting Provider: Kenneth (Hospitalist) Unit Admitted: [facility]
[2018-12-23 21:06] LABS: APPEARANCE,URINE SLIGHTLY-CLOUDY; BILIRUBIN,URINE NEGATIVE (NEGATIVE); COLOR,URINE YELLOW; GLUCOSE, URINE NEGATIVE (NEGATIVE); KETONES,URINE 20 mg/dL (NEGATIVE); LEUKOCYTE ESTERASE,URINE NEGATIVE (NEGATIVE); NITRITE,URINE NEGATIVE (NEGATIVE); PROTEIN,URINE NEGATIVE (NEGATIVE); URINE SPECIFIC GRAVITY 1.013; UROBILINOGEN,URINE NEGATIVE mg/dL (<2.0)
--- NOTE | 2018-12-23 21:21 | RADIOLOGY REPORT (SQ) ---
EXAM DESCRIPTION: [facility]: CT ABDOMEN PELVIS WITHOUT IV CONTRAST CLINICAL HISTORY: 77 years Male; ab pain, vomiting TECHNIQUE: CT of the abdomen and pelvis without contrast. All CT scans at this facility use dose modulation, iterative reconstruction, and/or weight based dosing when appropriate to reduce radiation dose to as low as reasonably achievable. COMPARISON: CT 02/21/2018 FINDINGS: Sternal wires are partially visualized. Coronary artery calcifications are partially visualized. Abdomen: Liver:No focal lesions. No intrahepatic ductal distention. Gallbladder: Surgically absent Pancreas:Within normal limits Spleen:Within normal limits Right kidney:No hydronephrosis. No renal or ureteral calculi. Left kidney: 2.4 cm lower pole cyst. No hydronephrosis or calculi. Adrenal glands:Within normal limits Vascular structures: Extensive atherosclerotic plaque. No aortic aneurysm. An IVC filter is noted. No acute retroperitoneal edema. Pelvis: Small bowel:No significant distention. Appendix:Within normal limits Colon: Extensive diverticulosis, seen throughout the colon. There is acute edema adjacent to the proximal sigmoid colon at the junction with the descending colon. No extraluminal fluid collections or air. No proximal colonic distention. No free intraperitoneal fluid or air. Bones: Chronic degenerative changes are noted in the lumbar spine. No acute bone findings. Bladder: Unremarkable. No pelvic mass or adenopathy. Note that evaluation of the bowel and solid organs is somewhat limited due to lack of intravenous and oral contrast. IMPRESSION: 1. Acute proximal sigmoid diverticulitis. 2. No bowel obstruction, perforation, or abscess 3. Atherosclerosis 4. Previous cholecystectomy 5. IVC filter
[2018-12-23] MEDS ORDERED: METRONIDAZOLE 500 MG/NS RTU 500 MG/100 ML RTUPB IV ONE (21:32)
[2018-12-23] MEDS ORDERED: CEFTRIAXONE INJ 1000 MG VIAL IV ONE (21:32)
[2018-12-23] MEDS ORDERED: METOPROLOL TARTRATE 50 MG TABLET PO SCH (22:00)
[2018-12-23] MEDS ORDERED: MAG HYDROX/AL HYDROX/SIMETH SUSP 30 ML UDCUP PO PRN (22:05)
[2018-12-23] MEDS ORDERED: IPRATROPIUM/ALBUTEROL 0.5-2.5 MG/3 ML AMPUL NEB PRN (22:05)
[2018-12-23] MEDS ORDERED: ACETAMINOPHEN 325 MG TABLET PO PRN (22:05)
[2018-12-23] MEDS ORDERED: ALBUTEROL SULFATE HFA (90 MCG/PUFF) 200 PUFF/8.5 GM MDI IH PRN (22:15)
[2018-12-23] MEDS: NORMAL SALINE 1000 ML 1,000 ML IV PRN (22:45)
[2018-12-23 22:50] LABS: ABSOLUTE RETICS # 0.067 10^6/uL (0.028-0.122); RETICULOCYTE COUNT (AUTO) 1.56 % (0.66-2.85)
[2018-12-23 22:52] LABS: IRON(TIBC) 148.6 ug/dL (49-181)
[2018-12-23 23:59] LABS: FOLATE 6.59 ng/mL (>2.76)
[2018-12-24] MEDS: THIAMINE HCL 100 MG TABLET PO SCH ×2 (05:13→11:00)
[2018-12-24] MEDS: CYANOCOBALAMIN (VITAMIN B-12) 1,000 MCG TABLET PO SCH ×2 (05:13→11:01)
[2018-12-24] MEDS: FOLIC ACID 1 MG TABLET PO SCH ×2 (05:14→11:01)
--- NOTE | 2018-12-24 05:30 | PDOC H&P ---
History of Present Illness Admission Date/PCP: 12/23/18 22:06 [facility] Patient complains of: Nausea vomiting diarrhea History of Present Illness: ISAURO CARREON is a 77 year old male with a past medical history of coronary artery disease status post coronary artery bypass graft, pulmonary emboli on Eliquis hypertension and tobacco dependence. Patient presents with 1 week of nausea, diarrhea and vague abdominal pain prompting evaluation in the emergency room and found to have persistent nausea, acute diverticulitis, acute renal failure and referred to the hospitalist for admission. Patient denies previous history, denies exceptional constipation or change in medications. Past Medical History Cardiac Medical History: Reports: Coronary Artery Disease, Myocardial Infarction - 2006, Hyperlipidema, Hypertension, Pulmonary Embolism - x3 last 2007, on Eliquis Pulmonary Medical History: Reports: Asthma, Chronic Obstructive Pulmonary Disease (COPD), Tuberculosis Endocrine Medical History: Reports: Diabetes Mellitus Type 2 Psychiatric Medical History: Reports: Depression Past Surgical History Past Surgical History: Reports: Cholecystectomy, Coronary Artery Bypass Graft - 2006 Social History Information Source: Patient Smoking Status: Current Every Day Smoker Frequency of Alcohol Use: Heavy - Denies history of withdrawal, seizure, tremor with abstinence Hx Recreational Drug Use: No Hx Prescription Drug Abuse: No - Advance Directive Resuscitation Status: Full Code Family History Family History: CVA, Hypertension Parental Family History Reviewed: Yes Children Family History Reviewed: Yes Sibling(s) Family History Reviewed.: No Medication/Allergy Home Medications: Albuterol Sulfate [Proair HFA Inhalation Aerosol 8.5 gm MDI] 1 puff IH Q4HP PRN 02/21/18 Amlodipine Besylate [Norvasc 5 mg Tablet] 5 mg PO DAILY 02/21/18 Apixaban [Eliquis 5 mg Tablet] 5 mg PO BID 02/21/18 Budesonide/Formoterol Fumarate [Symbicort 80-4.5 Mcg Inhaler] 2 puff IH BID 03/03 Ergocalciferol (Vitamin D2) [Vitamin D2] 50,000 unit PO Q7D 02/21/18 Furosemide [Lasix 40 mg Tablet] 40 mg PO BID 02/21/18 Isosorbide Mononitrate [Imdur 60 mg Tablet.er] 60 mg PO QAM 02/21/18 Metoprolol Tartrate [Lopressor 50 mg Tablet] 50 mg PO Q12H 02/21/18 Metronidazole 500 mg PO Q8H #30 tablet 02/27/18 Prednisone 20 mg PO ASDIR #18 tablet 04/15/18 Allergies/Adverse Reactions: ciprofloxacin [From Cipro] Allergy (Verified 12/23/18 20:44) enalapril maleate [From Vasotec] Allergy (Verified 12/23/18 20:44) niacin [From Niaspan] Allergy (Verified 12/23/18 20:44) Review of Systems Constitutional: ABSENT: chills, fever(s), headache(s), weight gain, weight loss Eyes: ABSENT: visual disturbances Ears: ABSENT: hearing changes Cardiovascular: ABSENT: chest pain, dyspnea on exertion, edema, orthropnea, palpitations Respiratory: ABSENT: cough, hemoptysis Gastrointestinal: PRESENT: as per HPI, diarrhea, nausea, vomiting. ABSENT: abdominal pain, constipation, hematemesis, hematochezia Genitourinary: ABSENT: dysuria, hematuria Musculoskeletal: ABSENT: joint swelling Integumentary: ABSENT: rash, wounds Neurological: ABSENT: abnormal gait, abnormal speech, confusion, dizziness, f ocal weakness, syncope Psychiatric: ABSENT: anxiety, depression, homidical ideation, suicidal ideation Endocrine: ABSENT: cold intolerance, heat intolerance, polydipsia, polyuria Hematologic/Lymphatic: ABSENT: easy bleeding, easy bruising Physical Exam Vital Signs: Temp Pulse Resp BP Pulse Ox 98.6 F 76 18 156/86 H 94 12/23/18 23:46 12/23/18 23:46 12/23/18 23:46 12/23/18 23:46 12/23/18 23:46 Intake & Output 12/22/18 12/23/18 12/24/18 11:59 11:59 11:59 Intake Total 250 Balance 250 Weight 95.3 kg General appearance: PRESENT: cooperative, mild distress. ABSENT: obese Head exam: PRESENT: atraumatic, normocephalic Eye exam: PRESENT: conjunctiva pink, EOMI, PERRLA. ABSENT: scleral icterus Ear exam: PRESENT: normal external ear exam Mouth exam: PRESENT: moist, tongue midline Neck exam: ABSENT: carotid bruit, JVD, lymphadenopathy, thyromegaly Respiratory exam: PRESENT: clear to auscultation claire. ABSENT: rales, rhonchi, wheezes Cardiovascular exam: PRESENT: RRR. ABSENT: diastolic murmur, rubs, systolic murmur Pulses: PRESENT: normal dorsalis pedis pul Vascular exam: PRESENT: normal capillary refill GI/Abdominal exam: PRESENT: diminished bowel sounds, hypoactive bowel sounds, soft, tenderness. ABSENT: firm, guarding Rectal exam: PRESENT: deferred Extremities exam: PRESENT: full ROM. ABSENT: calf tenderness, clubbing, pedal edema Neurological exam: PRESENT: alert, awake, oriented to person, oriented to place, oriented to time, oriented to situation, CN II-XII grossly intact. ABSENT: motor sensory deficit Psychiatric exam: PRESENT: appropriate affect, normal mood. ABSENT: homicidal ideation, suicidal ideation Skin exam: PRESENT: dry, intact, warm. ABSENT: cyanosis, rash Results Laboratory Results: 12/23/18 17:50 12/23/18 17:50 12/23/18 12/23/18 12/23/18 17:50 17:50 17:50 WBC 11.5 H RBC 4.33 L Hgb 14.0 Hct 43.4 MCV 100 H MCH 32.4 MCHC 32.3 RDW 16.1 H Plt Count 192 Seg Neutrophils % 84.8 H Lymphocytes % 9.1 L Monocytes % 6.0 Eosinophils % 0.0 Basophils % 0.1 Absolute Neutrophils 9.7 H Absolute Lymphocytes 1.0 Absolute Monocytes 0.7 Absolute Eosinophils 0.0 Absolute Basophils 0.0 Retic Count (auto) 1.56 Absolute Retic 0.067 VBG pH VBG pCO2 VBG HCO3 VBG Base Excess Sodium 140.6 Potassium 4.4 Chloride 90 L Carbon Dioxide 14 L Anion Gap 37 H BUN 34 H Creatinine 2.52 H Est GFR ( Amer) 30 L Est GFR (Non-Af Amer) 25 L Glucose 136 H Lactic Acid Calcium 8.0 L Iron TIBC % Saturation Ferritin Total Bilirubin 1.2 AST 92 H ALT 33 Alkaline Phosphatase 82 Total Protein 7.6 Albumin 4.7 Lipase 55.2 Vitamin B12 Folate Urine Color Urine Appearance Urine pH Ur Specific [place] Urine Protein Urine Glucose (UA) Urine Ketones Urine Blood Urine Nitrite Ur Leukocyte Esterase Urine WBC (Auto) Urine RBC (Auto) 12/23/18 12/23/18 12/23/18 17:50 19:36 19:36 WBC RBC Hgb Hct MCV MCH MCHC RDW Plt Count Seg Neutrophils % Lymphocytes % Monocytes % Eosinophils % Basophils % Absolute Neutrophils Absolute Lymphocytes Absolute Monocytes Absolute Eosinophils Absolute Basophils Retic Count (auto) Absolute Retic VBG pH 7.29 L VBG pCO2 33.2 L VBG HCO3 15.4 L VBG Base Excess -10.1 Sodium Potassium Chloride Carbon Dioxide Anion Gap BUN Creatinine Est GFR ( Amer) Est GFR (Non-Af Amer) Glucose Lactic Acid 5.5 H Calcium Iron 148.6 TIBC 257 % Saturation 58 Ferritin 447.00 Total Bilirubin AST ALT Alkaline Phosphatase Total Protein Albumin Lipase Vitamin B12 342.0 Folate 6.59 Urine Color Urine Appearance Urine pH Ur Specific [place] Urine Protein Urine Glucose (UA) Urine Ketones Urine Blood Urine Nitrite Ur Leukocyte Esterase Urine WBC (Auto) Urine RBC (Auto) 12/23/18 12/24/18 20:46 00:47 WBC RBC Hgb Hct MCV MCH MCHC RDW Plt Count Seg Neutrophils % Lymphocytes % Monocytes % Eosinophils % Basophils % Absolute Neutrophils Absolute Lymphocytes Absolute Monocytes Absolute Eosinophils Absolute Basophils Retic Count (auto) Absolute Retic VBG pH VBG pCO2 VBG HCO3 VBG Base Excess Sodium Potassium Chloride Carbon Dioxide Anion Gap BUN Creatinine Est GFR ( Amer) Est GFR (Non-Af Amer) Glucose Lactic Acid 1.6 Calcium Iron TIBC % Saturation Ferritin Total Bilirubin AST ALT Alkaline Phosphatase Total Protein Albumin Lipase Vitamin B12 Folate Urine Color YELLOW Urine Appearance SLIGHTLY-CLOUDY Urine pH 5.0 Ur Specific [place] 1.013 Urine Protein NEGATIVE Urine Glucose (UA) NEGATIVE Urine Ketones 20 H Urine Blood SMALL H Urine Nitrite NEGATIVE Ur Leukocyte Esterase NEGATIVE Urine WBC (Auto) 1 Urine RBC (Auto) 1 12/23/18 17:50 Troponin I 0.029 Impressions: Chest X-Ray 12/23/18 16:29 IMPRESSION: NO ACUTE FINDINGS. Abdomen/Pelvis CT 12/23/18 20:19 IMPRESSION: 1. Acute proximal sigmoid diverticulitis. 2. No bowel obstruction, perforation, or abscess 3. Atherosclerosis 4. Previous cholecystectomy 5. IVC filter Assessment and Plan - Diagnosis (1) Sigmoid diverticulitis Is this a current diagnosis for this admission?: Yes Plan: Rocephin and metronidazole, bowel rest, symptomatic management IV fluid challenge, follow-up blood culture and CBC (2) Acute kidney injury Is this a current diagnosis for this admission?: Yes Plan: Secondary to #1, IV fluid challenge, avoid nephrotoxic meds and doses reevaluate chemistry (3) CHF (congestive heart failure) Is this a current diagnosis for this admission?: No Plan: Currently compensated, hold diuretic for acute renal failure. Follow-up chemi stry - Time Time Spent with patient: 35 or more minutes - Inpatient Certification Medical Necessity: Need Close Monitoring Due to Risk of Patient Decompensation
[2018-12-24 05:51] LABS: ABSOLUTE MONOCYTES (AUTO) 1.1 10^3/uL (0.1-1.4); BASOPHILS % (AUTO) 0.3 % (0-2); EOSINOPHILS % (AUTO) 0.1 % (0-6); HEMATOCRIT 35.3 % (37.9-51.0); LYMPHOCYTES % (AUTO) 9.8 % (13-45); MEAN CORPUSCULAR HEMOGLOBIN 32.6 pg (27.0-33.4); MEAN CORPUSCULAR HGB CONC 33.4 g/dL (32.0-36.0); MEAN CORPUSCULAR VOLUME 97 fl (80-97); MONOCYTES % (AUTO) 10.5 % (3-13); PLATELET COUNT 137 10^3/uL (150-450); RED BLOOD COUNT 3.63 10^6/uL (4.35-5.55); RED CELL DISTRIBUTION WIDTH 15.5 % (11.5-14.0); SEGMENTED NEUTROPHILS % (AUTO) 79.3 % (42-78); TOTAL CELLS COUNTED % (AUTO) 100 %; WHITE BLOOD COUNT 10.1 10^3/uL (4.0-10.5)
[2018-12-24 05:59] LABS: HEMOGLOBIN 11.8 g/dL (13.5-17.0)
[2018-12-24 06:10] LABS: BLOOD UREA NITROGEN 40 mg/dL (7-20); CALCIUM 7.1 mg/dL (8.4-10.2); GLUCOSE 138 mg/dL (75-110); SODIUM 135.7 mmol/L (137-145)
[2018-12-24 06:15] LABS: ANION GAP 17 (5-19); CHLORIDE 93 mmol/L (98-107)
[2018-12-24 06:20] LABS: CARBON DIOXIDE 26 mmol/L (22-30)
[2018-12-24] MEDS: NORMAL SALINE 1000 ML 1,000 ML IV PRN (06:55)
[2018-12-24] MEDS: METRONIDAZOLE 500 MG TABLET PO SCH ×3 (06:55→17:23)
[2018-12-24] MEDS: ISOSORBIDE MONONITRATE 60 MG TAB.ER.24H PO SCH (08:14)
[2018-12-24] MEDS ORDERED: CEFTRIAXONE 1 GM/D5W RTU 1 GM/50 ML RTUPB IV SCH (10:00)
[2018-12-24] MEDS ORDERED: APIXABAN 5 MG TABLET PO SCH (10:00)
[2018-12-24] MEDS: METOPROLOL TARTRATE 50 MG TABLET PO SCH ×2 (11:01→22:23)
[2018-12-24] MEDS: CEFTRIAXONE SODIUM 1,000 MG in DEXTROSE 5%-WATER 50 ML IV SCH (11:02)
[2018-12-24] MEDS: FLUTICASONE/VILANTEROL 100-25 MCG/DOSE IH SCH (11:03)
[2018-12-24] MEDS ORDERED: (PENDING PHARMACY ID) (Paroxetine Hcl [Paxil] 30 MG) PO SCH (12:15)
--- NOTE | 2018-12-24 12:18 | PDOC PROGRESS REPORT ---
Subjective Progress Note for:: 12/24/18 Subjective:: 77 year old male with a past medical history of coronary artery disease status post coronary artery bypass graft, pulmonary emboli on Eliquis hypertension and tobacco dependence. Patient presents with 1 week of nausea, diarrhea and vague abdominal pain prompting evaluation in the emergency room and found to have persistent nausea, acute diverticulitis, acute renal failure and referred to the hospitalist for admission. Patient denies previous history, denies exceptional constipation or change in medications. 12/[id number]-inos-old male admitted for diverticulitis. Diverticulitis associated nausea abdominal pain diarrhea though symptoms are resolving as per the patient. Able to tolerate the p.o. liquid diet. He wants to go back on his p.o. paroxetine which was restarted today. No acute events since the admission. T-max is 97.8. Blood pressure is 146/97. Comfortably in the bed communicating well denies any problems. Reason For Visit: ACUTE DIVERTICULITIS Physical Exam Vital Signs: Temp Pulse Resp BP Pulse Ox 98.6 F 71 16 123/70 90 L 12/24/18 08:49 12/24/18 11:35 12/24/18 11:35 12/24/18 08:49 12/24/18 11:35 Intake & Output 12/23/18 12/24/18 12/25/18 06:59 06:59 06:59 Intake Total 1250 1600 Balance 1250 1600 Weight 95.3 kg General appearance: PRESENT: no acute distress, obese Head exam: PRESENT: atraumatic Eye exam: PRESENT: PERRLA Mouth exam: PRESENT: moist, tongue midline Neck exam: ABSENT: carotid bruit, JVD, lymphadenopathy, thyromegaly Respiratory exam: PRESENT: clear to auscultation claire. ABSENT: rales, rhonchi, wheezes Cardiovascular exam: PRESENT: RRR. ABSENT: diastolic murmur, rubs, systolic murmur GI/Abdominal exam: PRESENT: normal bowel sounds, soft. ABSENT: distended, guarding, mass, organolmegaly, rebound, tenderness Rectal exam: PRESENT: deferred Extremities exam: PRESENT: full ROM. ABSENT: calf tenderness, clubbing, pedal edema Neurological exam: PRESENT: alert, awake, oriented to person, oriented to place, oriented to time, oriented to situation, CN II-XII grossly intact. ABSENT: motor sensory deficit Psychiatric exam: PRESENT: appropriate affect, normal mood. ABSENT: homicidal ideation, suicidal ideation Results Laboratory Results: 12/24/18 05:34 12/24/18 05:34 12/23/18 12/23/18 12/23/18 17:50 17:50 17:50 WBC 11.5 H RBC 4.33 L Hgb 14.0 Hct 43.4 MCV 100 H MCH 32.4 MCHC 32.3 RDW 16.1 H Plt Count 192 Seg Neutrophils % 84.8 H Lymphocytes % 9.1 L Monocytes % 6.0 Eosinophils % 0.0 Basophils % 0.1 Absolute Neutrophils 9.7 H Absolute Lymphocytes 1.0 Absolute Monocytes 0.7 Absolute Eosinophils 0.0 Absolute Basophils 0.0 Retic Count (auto) 1.56 Absolute Retic 0.067 VBG pH VBG pCO2 VBG HCO3 VBG Base Excess Sodium 140.6 Potassium 4.4 Chloride 90 L Carbon Dioxide 14 L Anion Gap 37 H BUN 34 H Creatinine 2.52 H Est GFR ( Amer) 30 L Est GFR (Non-Af Amer) 25 L Glucose 136 H Lactic Acid Calcium 8.0 L Iron TIBC % Saturation Ferritin Total Bilirubin 1.2 AST 92 H ALT 33 Alkaline Phosphatase 82 Total Protein 7.6 Albumin 4.7 Lipase 55.2 Vitamin B12 Folate Urine Color Urine Appearance Urine pH Ur Specific [place] Urine Protein Urine Glucose (UA) Urine Ketones Urine Blood Urine Nitrite Ur Leukocyte Esterase Urine WBC (Auto) Urine RBC (Auto) 12/23/18 12/23/18 12/23/18 17:50 19:36 19:36 WBC RBC Hgb Hct MCV MCH MCHC RDW Plt Count Seg Neutrophils % Lymphocytes % Monocytes % Eosinophils % Basophils % Absolute Neutrophils Absolute Lymphocytes Absolute Monocytes Absolute Eosinophils Absolute Basophils Retic Count (auto) Absolute Retic VBG pH 7.29 L VBG pCO2 33.2 L VBG HCO3 15.4 L VBG Base Excess -10.1 Sodium Potassium Chloride Carbon Dioxide Anion Gap BUN Creatinine Est GFR ( Amer) Est GFR (Non-Af Amer) Glucose Lactic Acid 5.5 H Calcium Iron 148.6 TIBC 257 % Saturation 58 Ferritin 447.00 Total Bilirubin AST ALT Alkaline Phosphatase Total Protein Albumin Lipase Vitamin B12 342.0 Folate 6.59 Urine Color Urine Appearance Urine pH Ur Specific [place] Urine Protein Urine Glucose (UA) Urine Ketones Urine Blood Urine Nitrite Ur Leukocyte Esterase Urine WBC (Auto) Urine RBC (Auto) 12/23/18 12/24/18 12/24/18 20:46 00:47 05:34 WBC 10.1 RBC 3.63 L Hgb 11.8 L D Hct 35.3 L MCV 97 MCH 32.6 MCHC 33.4 RDW 15.5 H Plt Count 137 L Seg Neutrophils % 79.3 H Lymphocytes % 9.8 L Monocytes % 10.5 Eosinophils % 0.1 Basophils % 0.3 Absolute Neutrophils 8.0 Absolute Lymphocytes 1.0 Absolute Monocytes 1.1 Absolute Eosinophils 0.0 Absolute Basophils 0.0 Retic Count (auto) Absolute Retic VBG pH VBG pCO2 VBG HCO3 VBG Base Excess Sodium Potassium Chloride Carbon Dioxide Anion Gap BUN Creatinine Est GFR ( Amer) Est GFR (Non-Af Amer) Glucose Lactic Acid 1.6 Calcium Iron TIBC % Saturation Ferritin Total Bilirubin AST ALT Alkaline Phosphatase Total Protein Albumin Lipase Vitamin B12 Folate Urine Color YELLOW Urine Appearance SLIGHTLY-CLOUDY Urine pH 5.0 Ur Specific [place] 1.013 Urine Protein NEGATIVE Urine Glucose (UA) NEGATIVE Urine Ketones 20 H Urine Blood SMALL H Urine Nitrite NEGATIVE Ur Leukocyte Esterase NEGATIVE Urine WBC (Auto) 1 Urine RBC (Auto) 1 12/24/18 12/24/18 05:34 05:34 WBC RBC Hgb Hct MCV MCH MCHC RDW Plt Count Seg Neutrophils % Lymphocytes % Monocytes % Eosinophils % Basophils % Absolute Neutrophils Absolute Lymphocytes Absolute Monocytes Absolute Eosinophils Absolute Basophils Retic Count (auto) Absolute Retic VBG pH VBG pCO2 VBG HCO3 VBG Base Excess Sodium 135.7 L Potassium 4.0 Chloride 93 L Carbon Dioxide 26 D Anion Gap 17 BUN 40 H Creatinine 1.71 H Est GFR ( Amer) 47 L Est GFR (Non-Af Amer) 39 L Glucose 138 H Lactic Acid Calcium 7.1 L Iron TIBC % Saturation Ferritin Total Bilirubin AST ALT Alkaline Phosphatase Total Protein Albumin Lipase 59.6 Vitamin B12 Folate Urine Color Urine Appearance Urine pH Ur Specific [place] Urine Protein Urine Glucose (UA) Urine Ketones Urine Blood Urine Nitrite Ur Leukocyte Esterase Urine WBC (Auto) Urine RBC (Auto) 12/23/18 17:50 Troponin I 0.029 Impressions: Chest X-Ray 12/23/18 16:29 IMPRESSION: NO ACUTE FINDINGS. Abdomen/Pelvis CT 12/23/18 20:19 IMPRESSION: 1. Acute proximal sigmoid diverticulitis. 2. No bowel obstruction, perforation, or abscess 3. Atherosclerosis 4. Previous cholecystectomy 5. IVC filter Assessment and Plan - Diagnosis (1) Sigmoid diverticulitis Is this a current diagnosis for this admission?: Yes Plan: Rocephin and metronidazole, bowel rest, symptomatic management IV fluid c hallenge, follow-up blood culture and CBC 12/24/2018-patient is presently on IV Rocephin and IV Flagyl for diverticulitis cultures are pending. Afebrile. Nausea vomiting and diarrhea along with abdo saran pain is resolving. Patient is able to tolerate the clear liquids today. To start him back on home medications and IV fluids are discontinued today because of history of congestive heart failure. (2) Acute kidney injury Is this a current diagnosis for this admission?: Yes Plan: Secondary to #1, IV fluid challenge, avoid nephrotoxic meds and doses reevaluate chemistry 12/24/2018-patient came in with a ELOINA. Patient's baseline creatinine is 1.05. Today's creatinine is 1.72 on admission it was 2.5 ELOINA most likely secondary to nausea vomitings and poor oral intake. Which was resolving. (3) CHF (congestive heart failure) Is this a current diagnosis for this admission?: No Plan: Currently compensated, hold diuretic for acute renal failure. Follow-up chemistry 12/24/2018-patient has history of congestive heart failure on examination patient is euvolemic. IV fluids are discontinued and to repeat the labs tomorrow continue to follow him on a regular basis. - Time Time Spent with patient: 15-24 minutes Medications reviewed and adjusted accordingly: Yes Anticipated discharge: Home
[2018-12-24] MEDS: PAROXETINE HCL 20 MG TABLET PO SCH (13:53)
[2018-12-24] MEDS: APIXABAN 2.5 MG TABLET PO SCH (17:23)
[2018-12-25] MEDS: METRONIDAZOLE 500 MG TABLET PO SCH ×3 (06:07→11:30)
[2018-12-25] MEDS: ISOSORBIDE MONONITRATE 60 MG TAB.ER.24H PO SCH (07:35)
[2018-12-25 07:53] LABS: ABSOLUTE EOSINOPHILS # (AUTO) 0.1 10^3/uL (0.0-0.6); ABSOLUTE MONOCYTES (AUTO) 0.7 10^3/uL (0.1-1.4); ABSOLUTE NEUT (AUTO) 4.1 10^3/uL (1.7-8.2); BASOPHILS % (AUTO) 0.6 % (0-2); EOSINOPHILS % (AUTO) 0.9 % (0-6); HEMATOCRIT 35.3 % (37.9-51.0); HEMOGLOBIN 11.8 g/dL (13.5-17.0); LYMPHOCYTES % (AUTO) 17.2 % (13-45); MEAN CORPUSCULAR HEMOGLOBIN 32.5 pg (27.0-33.4); MEAN CORPUSCULAR HGB CONC 33.5 g/dL (32.0-36.0); MEAN CORPUSCULAR VOLUME 97 fl (80-97); MONOCYTES % (AUTO) 11.6 % (3-13); PLATELET COUNT 126 10^3/uL (150-450); RED BLOOD COUNT 3.64 10^6/uL (4.35-5.55); RED CELL DISTRIBUTION WIDTH 15.7 % (11.5-14.0); SEGMENTED NEUTROPHILS % (AUTO) 69.7 % (42-78); TOTAL CELLS COUNTED % (AUTO) 100 %; WHITE BLOOD COUNT 5.9 10^3/uL (4.0-10.5)
[2018-12-25 08:10] LABS: ALANINE AMINOTRANSFERASE 25 U/L (21-72); ALBUMIN 3.3 g/dL (3.5-5.0); ALKALINE PHOSPHATASE 66 U/L (38-126); ANION GAP 13 (5-19); ASPARTATE AMINO TRANSFERASE 35 U/L (17-59); BILIRUBIN,DIRECT 0.4 mg/dL (0.0-0.4); BILIRUBIN,TOTAL 0.9 mg/dL (0.2-1.3); BLOOD UREA NITROGEN 24 mg/dL (7-20); CALCIUM 7.7 mg/dL (8.4-10.2); CARBON DIOXIDE 30 mmol/L (22-30); CHLORIDE 97 mmol/L (98-107); GLUCOSE 130 mg/dL (75-110); POTASSIUM 3.5 mmol/L (3.6-5.0); SODIUM 140.1 mmol/L (137-145); TOTAL PROTEIN 5.8 g/dL (6.3-8.2)
[2018-12-25] MEDS ORDERED: MAGNESIUM SULFATE/D5W 1 GM/100 ML RTUPB IV ONE (09:00)
[2018-12-25] MEDS: FOLIC ACID 1 MG TABLET PO SCH (09:13)
[2018-12-25] MEDS: CYANOCOBALAMIN (VITAMIN B-12) 1,000 MCG TABLET PO SCH (09:13)
[2018-12-25] MEDS: THIAMINE HCL 100 MG TABLET PO SCH (09:13)
[2018-12-25] MEDS: FLUTICASONE/VILANTEROL 100-25 MCG/DOSE IH SCH (09:14)
[2018-12-25] MEDS: METOPROLOL TARTRATE 50 MG TABLET PO SCH ×2 (09:14→21:49)
[2018-12-25] MEDS: PAROXETINE HCL 20 MG TABLET PO SCH (09:14)
[2018-12-25] MEDS: APIXABAN 2.5 MG TABLET PO SCH ×2 (09:14→18:00)
[2018-12-25] MEDS ORDERED: AMLODIPINE BESYLATE 5 MG TABLET PO SCH (10:00)
[2018-12-25] MEDS: CEFTRIAXONE SODIUM 1,000 MG in DEXTROSE 5%-WATER 50 ML IV SCH (10:18)
[2018-12-25] MEDS ORDERED: DEXTROSE 40% GEL 15 GM TUBE PO PRN ×2 (14:13)
[2018-12-25] MEDS ORDERED: GLUCAGON,HUMAN RECOMB 1 MG INJ IM PRN (14:13)
[2018-12-25] MEDS ORDERED: DEXTROSE 50%-WATER 25 GM/50 ML DISP.SYRIN IV PRN ×2 (14:13)
--- NOTE | 2018-12-25 14:13 | PDOC PROGRESS REPORT ---
Subjective Progress Note for:: 12/25/18 Reason For Visit: ISAURO CARREON is a 77 year old male with a past medical history of coronary artery disease status post coronary artery bypass graft, pulmonary emboli on Eliquis hypertension and tobacco dependence. Patient presents with 1 week of nausea, diarrhea and vague abdominal pain prompting evaluation in the emergency room and found to have persistent nausea, acute diverticulitis, acute renal failure and referred to the hospitalist for admission. Patient denies previous history, denies exceptional constipation or change in medications. 12/25/2018. No acute events overnight, patient is tolerating clear liquids however has not had a bowel movement, passing flatus, denies any fever, chills, nausea, vomiting, diarrhea, constipation or any urinary symptoms. Abdominal pain has resolved. Physical Exam Vital Signs: Temp Pulse Resp BP Pulse Ox 98.4 F 88 16 132/66 H 92 12/25/18 11:17 12/25/18 13:37 12/25/18 13:37 12/25/18 11:17 12/25/18 13:37 Intake & Output 12/24/18 12/25/18 12/26/18 06:59 06:59 06:59 Intake Total 1250 2590 1040 Balance 1250 2590 1040 Weight 95.3 kg 93.1 kg Results Laboratory Results: 12/25/18 07:20 12/25/18 07:20 12/25/18 12/25/18 07:20 07:20 WBC 5.9 RBC 3.64 L Hgb 11.8 L Hct 35.3 L MCV 97 MCH 32.5 MCHC 33.5 RDW 15.7 H Plt Count 126 L Seg Neutrophils % 69.7 Lymphocytes % 17.2 Monocytes % 11.6 Eosinophils % 0.9 Basophils % 0.6 Absolute Neutrophils 4.1 Absolute Lymphocytes 1.0 Absolute Monocytes 0.7 Absolute Eosinophils 0.1 Absolute Basophils 0.0 Sodium 140.1 Potassium 3.5 L Chloride 97 L Carbon Dioxide 30 Anion Gap 13 BUN 24 H Creatinine 1.23 Est GFR ( Amer) > 60 Est GFR (Non-Af Amer) 57 L Glucose 130 H Calcium 7.7 L Magnesium 1.1 L* Total Bilirubin 0.9 AST 35 ALT 25 Alkaline Phosphatase 66 Total Protein 5.8 L Albumin 3.3 L 12/23/18 17:50 Troponin I 0.029 Impressions: Chest X-Ray 12/23/18 16:29 IMPRESSION: NO ACUTE FINDINGS. Abdomen/Pelvis CT 12/23/18 20:19 IMPRESSION: 1. Acute proximal sigmoid diverticulitis. 2. No bowel obstruction, perforation, or abscess 3. Atherosclerosis 4. Previous cholecystectomy 5. IVC filter Assessment and Plan - Diagnosis (1) Sigmoid diverticulitis Is this a current diagnosis for this admission?: Yes Plan: Improving. Day 3 of IV metronidazole, ceftriaxone. Blood cultures on 12/23/2018 1/2+ for gram-positive cocci in clusters, pending sensitivity. Repeat blood cultures negative. Continue clear liquids, advance diet as tolerated. 12/23/2018. CT abdomen acute proximal sigmoid diverticulitis. No bowel obstruction. No abscess, no perforation. (2) Acute kidney injury superimposed on CKD Is this a current diagnosis for this admission?: Yes Plan: Improving. Prerenal. Likely due to p.o. intolerance caused by underlying sigmoid diverticulitis. Baseline 1.5 Cautious diuresis guided by volume status. CMP tomorrow, monitor volume status, monitor electrolytes replace as needed. (3) CHF (congestive heart failure) Is this a current diagnosis for this admission?: No Plan: Currently compensated. Denies any anginal symptoms. Continue beta-blockers, hold diuretics due to ELOINA. Start once appropriate. Cardiac diet, daily weights, strict in and out, continue beta-blockers. (4) Coronary artery disease Qualifiers: Coronary Disease-Associated Artery/Lesion type: unspecified vessel or lesion type [place] vs. transplanted heart: [place] heart Associated angina: without angina Qualified Code(s): I25.10 - Atherosclerotic heart disease of [place] coronary artery without angina pectoris Is this a current diagnosis for this admission?: No Plan: Denies anginal symptoms. History of post PCI. Restart home meds. Outpatient PCP follow-up. 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 Diabetic diet, pre-meal insulin, sliding scale insulin, long-acting insulin. Adjust dosage as needed. Outpatient PCP follow- up.
[2018-12-25 15:06] LABS: CHOLESTEROL 113.98 mg/dL (0-200); TRIGLYCERIDES 130 mg/dL (<150)
[2018-12-25 15:19] LABS: DIRECT LDL 62 mg/dL (<100)
[2018-12-25] MEDS ORDERED: ONDANSETRON HCL INJ/PF 4 MG/2 ML SDV IV PRN (17:29)
[2018-12-25] MEDS ORDERED: OXYCODONE-ACETAMINOPHEN 5-325 MG TABLET PO PRN (17:29)
[2018-12-25] MEDS ORDERED: VANCOMYCIN HCL 0 MG in DEXTROSE 5%-WATER 250 ML IV NR (17:30)
[2018-12-25] MEDS: INSULIN LISPRO 100 UNIT/ML 3 ML VIAL SUBCUT SCH ×2 (17:38→21:50)
[2018-12-25] MEDS: MAGNESIUM OXIDE 400 MG TABLET PO SCH (18:00)
[2018-12-25] MEDS ORDERED: METOPROLOL TARTRATE 50 MG TABLET PO SCH (22:00)
[2018-12-25] MEDS ORDERED: VANCOMYCIN HCL 750 MG in DEXTROSE 5%-WATER 250 ML IV SCH (22:00)
[2018-12-26] MEDS: POTASSI CL 20 MEQ/D5NS 1L 20 MEQ/1,000 ML RTUINJ IV PRN ×2 (02:06→17:37)
[2018-12-26 06:18] LABS: ABSOLUTE EOSINOPHILS # (AUTO) 0.1 10^3/uL (0.0-0.6); ABSOLUTE LYMPHOCYTES (AUTO) 1.3 10^3/uL (0.5-4.7); ABSOLUTE MONOCYTES (AUTO) 0.8 10^3/uL (0.1-1.4); ABSOLUTE NEUT (AUTO) 2.4 10^3/uL (1.7-8.2); BASOPHILS % (AUTO) 0.9 % (0-2); EOSINOPHILS % (AUTO) 1.4 % (0-6); HEMATOCRIT 36.5 % (37.9-51.0); HEMOGLOBIN 12.2 g/dL (13.5-17.0); LYMPHOCYTES % (AUTO) 27.7 % (13-45); MEAN CORPUSCULAR HEMOGLOBIN 32.6 pg (27.0-33.4); MEAN CORPUSCULAR HGB CONC 33.3 g/dL (32.0-36.0); MEAN CORPUSCULAR VOLUME 98 fl (80-97); MONOCYTES % (AUTO) 17.9 % (3-13); PLATELET COUNT 132 10^3/uL (150-450); RED BLOOD COUNT 3.73 10^6/uL (4.35-5.55); RED CELL DISTRIBUTION WIDTH 15.9 % (11.5-14.0); SEGMENTED NEUTROPHILS % (AUTO) 52.1 % (42-78); TOTAL CELLS COUNTED % (AUTO) 100 %; WHITE BLOOD COUNT 4.7 10^3/uL (4.0-10.5)
[2018-12-26 06:39] LABS: ALANINE AMINOTRANSFERASE 23 U/L (21-72); ALBUMIN 3.3 g/dL (3.5-5.0); ALKALINE PHOSPHATASE 71 U/L (38-126); ANION GAP 7 (5-19); ASPARTATE AMINO TRANSFERASE 29 U/L (17-59); BILIRUBIN,DIRECT 0.3 mg/dL (0.0-0.4); BILIRUBIN,TOTAL 0.9 mg/dL (0.2-1.3); BLOOD UREA NITROGEN 12 mg/dL (7-20); CARBON DIOXIDE 33 mmol/L (22-30); CHLORIDE 99 mmol/L (98-107); GLUCOSE 129 mg/dL (75-110); POTASSIUM 3.6 mmol/L (3.6-5.0); SODIUM 139.3 mmol/L (137-145)
[2018-12-26] MEDS ORDERED: MAGNESIUM SULFATE/D5W 1 GM/100 ML RTUPB IV ONE (06:52)
[2018-12-26] MEDS: INSULIN LISPRO 100 UNIT/ML 3 ML VIAL SUBCUT SCH ×4 (07:41→21:30)
[2018-12-26] MEDS ORDERED: ISOSORBIDE MONONITRATE 60 MG TAB.ER.24H PO SCH (08:00)
[2018-12-26] MEDS: ISOSORBIDE MONONITRATE 60 MG TAB.ER.24H PO SCH (08:53)
[2018-12-26] MEDS ORDERED: VANCOMYCIN HCL 1,000 MG in DEXTROSE 5%-WATER 250 ML IV SCH (10:00)
[2018-12-26] MEDS ORDERED: AMLODIPINE BESYLATE 5 MG TABLET PO SCH (10:00)
[2018-12-26] MEDS: AMLODIPINE BESYLATE 10 MG TABLET PO SCH (10:23)
[2018-12-26] MEDS: FOLIC ACID 1 MG TABLET PO SCH (10:23)
[2018-12-26] MEDS: MAGNESIUM OXIDE 400 MG TABLET PO SCH ×2 (10:24→17:34)
[2018-12-26] MEDS: PAROXETINE HCL 20 MG TABLET PO SCH (10:24)
[2018-12-26] MEDS: THIAMINE HCL 100 MG TABLET PO SCH (10:24)
[2018-12-26] MEDS: METOPROLOL TARTRATE 50 MG TABLET PO SCH ×2 (10:25→21:31)
[2018-12-26] MEDS: APIXABAN 2.5 MG TABLET PO SCH (10:25)
[2018-12-26] MEDS: FLUTICASONE/VILANTEROL 100-25 MCG/DOSE IH SCH (10:26)
[2018-12-26] MEDS: CYANOCOBALAMIN (VITAMIN B-12) 1,000 MCG TABLET PO SCH (10:26)
--- NOTE | 2018-12-26 11:31 | PDOC PROGRESS REPORT ---
Subjective Progress Note for:: 12/26/18 Subjective:: ISAURO CARREON is a 77 year old male with a past medical history of coronary artery disease status post coronary artery bypass graft, pulmonary emboli on Eliquis hypertension and tobacco dependence. Patient presents with 1 week of nausea, diarrhea and vague abdominal pain prompting evaluation in the emergency room and found to have persistent nausea, acute diverticulitis, acute renal failure and referred to the hospitalist for admission. Patient denies previous history, denies exceptional constipation or change in medications. 12/25/2018. No acute events overnight, patient is tolerating clear liquids however has not had a bowel movement, passing flatus, denies any fever, chills, nausea, vomiting, diarrhea, constipation or any urinary symptoms. Abdominal pain has resolved. 12/26/2018. No acute events overnight, patient is still having persistent watery diarrhea, denies any abdominal pain, p.o. tolerant, having normal bladder function, denies any fever, chills, shortness of breath or any urinary symptoms. Reason For Visit: ACUTE DIVERTICULITIS Physical Exam Vital Signs: Temp Pulse Resp BP Pulse Ox 97.2 F 63 19 167/74 H 94 12/26/18 07:59 12/26/18 07:59 12/26/18 07:59 12/26/18 07:59 12/26/18 07:59 Intake & Output 12/25/18 12/26/18 12/27/18 06:59 06:59 06:59 Intake Total 2590 2390 Balance 2590 2390 Weight 93.1 kg 94.2 kg General appearance: PRESENT: no acute distress, well-developed, well-nourished Head exam: PRESENT: atraumatic, normocephalic Eye exam: PRESENT: conjunctiva pink, EOMI, PERRLA. ABSENT: scleral icterus Ear exam: PRESENT: normal external ear exam Mouth exam: PRESENT: moist, tongue midline Neck exam: ABSENT: carotid bruit, JVD, lymphadenopathy, thyromegaly Respiratory exam: PRESENT: clear to auscultation claire. ABSENT: rales, rhonchi, wheezes Cardiovascular exam: PRESENT: RRR. ABSENT: diastolic murmur, rubs, systolic murmur Pulses: PRESENT: normal dorsalis pedis pul Vascular exam: PRESENT: normal capillary refill GI/Abdominal exam: PRESENT: normal bowel sounds, soft. ABSENT: distended, guarding, mass, organolmegaly, rebound, tenderness Rectal exam: PRESENT: deferred Extremities exam: PRESENT: full ROM. ABSENT: calf tenderness, clubbing, pedal edema Neurological exam: PRESENT: alert, awake, oriented to person, oriented to place, oriented to time, oriented to situation, CN II-XII grossly intact. ABSENT: motor sensory deficit Psychiatric exam: PRESENT: appropriate affect, normal mood. ABSENT: homicidal ideation, suicidal ideation Skin exam: PRESENT: dry, intact, warm. ABSENT: cyanosis, rash Results Laboratory Results: 12/26/18 05:44 12/26/18 05:44 12/25/18 12/26/18 12/26/18 07:20 05:44 05:44 WBC 4.7 RBC 3.73 L Hgb 12.2 L Hct 36.5 L MCV 98 H MCH 32.6 MCHC 33.3 RDW 15.9 H Plt Count 132 L Seg Neutrophils % 52.1 Lymphocytes % 27.7 Monocytes % 17.9 H Eosinophils % 1.4 Basophils % 0.9 Absolute Neutrophils 2.4 Absolute Lymphocytes 1.3 Absolute Monocytes 0.8 Absolute Eosinophils 0.1 Absolute Basophils 0.0 Sodium 139.3 Potassium 3.6 Chloride 99 Carbon Dioxide 33 H Anion Gap 7 BUN 12 Creatinine 0.84 Est GFR ( Amer) > 60 Est GFR (Non-Af Amer) > 60 Glucose 129 H Calcium 8.0 L Magnesium 1.4 L Total Bilirubin 0.9 AST 29 ALT 23 Alkaline Phosphatase 71 Total Protein 6.0 L Albumin 3.3 L Triglycerides 130 Cholesterol 113.98 LDL Cholesterol Direct 62 VLDL Cholesterol 26.0 HDL Cholesterol 37 L 12/23/18 17:50 Troponin I 0.029 Impressions: Chest X-Ray 12/23/18 16:29 IMPRESSION: NO ACUTE FINDINGS. Abdomen/Pelvis CT 12/23/18 20:19 IMPRESSION: 1. Acute proximal sigmoid diverticulitis. 2. No bowel obstruction, perforation, or abscess 3. Atherosclerosis 4. Previous cholecystectomy 5. IVC filter Assessment and Plan - Diagnosis (1) C. difficile colitis Is this a current diagnosis for this admission?: Yes Plan: Positive C. difficile by PCR. Denies any recent sick contacts, hospitalization or antibiotic use. Persistent watery diarrhea. Day #2 IV vancomycin. Received 3 days of IV metronidazole and ceftriaxone. Switched to vancomycin on 12/25/2018. Monitor volume status and electrolytes and replace as needed. Switch to p.o. antibiotics once symptomatic improvement. (2) Sigmoid diverticulitis Is this a current diagnosis for this admission?: Yes Plan: Improving. Most likely due to C. difficile colitis. Day 4 IV antibiotics. Received 3 days of IV metronidazole and ceftriaxone. Switched to vancomycin on 12/25/2018. Of IV metronidazole, ceftriaxone. Blood cultures on 12/23/2018 1/2+ for gram-positive cocci in clusters, pending sensitivity. Repeat blood cultures negative. Continue clear liquids, advance diet as tolerated. 12/23/2018. CT abdomen acute proximal sigmoid diverticulitis. No bowel obstruction. No abscess, no perforation. (3) Acute kidney injury superimposed on CKD Is this a current diagnosis for this admission?: Yes Plan: Resolved. Creatinine 0.84. Prerenal. Likely due to p.o. intolerance caused by underlying sigmoid diverticulitis. Baseline 1.5 Cautious diuresis guided by volume status. CMP tomorrow, monitor volume status, monitor electrolytes replace as needed. (4) CHF (congestive heart failure) Is this a current diagnosis for this admission?: No Plan: Currently compensated. Denies any anginal symptoms. Continue beta-blockers, hold diuretics due to ELOINA. Start once appropriate. Cardiac diet, daily weights, strict in and out, continue beta-blockers. (5) Coronary artery disease Qualifiers: Coronary Disease-Associated Artery/Lesion type: unspecified vessel or lesion type [place] vs. transplanted heart: [place] heart Associated angina: without angina Qualified Code(s): I25.10 - Atherosclerotic heart disease of [place] coronary artery without angina pectoris Is this a current diagnosis for this admission?: No Plan: Denies anginal symptoms. History of post PCI. Restart home meds. Outpatient PCP follow-up. (6) History of pulmonary embolus (PE) Is this a current diagnosis for this admission?: No Plan: Continue apixaban 5 mg p.o. twice daily. Note: Patient was initially started on 2.5 mg p.o. twice daily apixaban due to ELOINA. (7) Type 2 diabetes mellitus Qualifiers: Diabetes mellitus shelter insulin use: without shelter use Diabetes mellitus complication status: without complication Qualified Code(s): E11.9 - Type 2 diabetes mellitus without complications Is this a current diagnosis for this admission?: No Plan: Controlled. A1c 5.1. Diabetic diet, pre-meal insulin, sliding scale insulin, long-acting insulin. Adjust dosage as needed. Outpatient PCP follow-up. (8) Hypomagnesemia Is this a current diagnosis for this admission?: Yes Plan: Likely due to GI losses caused by C. difficile colitis. Replace. Mag level tomorrow. Replace as needed.
[2018-12-26] MEDS: VANCOMYCIN HCL INJ 500 MG VIAL PO SCH ×2 (17:32→23:41)
[2018-12-26] MEDS: APIXABAN 5 MG TABLET PO SCH (17:34)
[2018-12-26] MEDS ORDERED: APIXABAN 2.5 MG TABLET PO SCH (18:00)
[2018-12-27] MEDS: VANCOMYCIN HCL INJ 500 MG VIAL PO SCH ×3 (05:48→17:31)
[2018-12-27 07:00] LABS: EOSINOPHILS % (AUTO) 3.4 % (0-6); HEMATOCRIT 36.4 % (37.9-51.0); LYMPHOCYTES % (AUTO) 25.4 % (13-45); MEAN CORPUSCULAR HEMOGLOBIN 32.4 pg (27.0-33.4); MEAN CORPUSCULAR HGB CONC 32.9 g/dL (32.0-36.0); MEAN CORPUSCULAR VOLUME 99 fl (80-97); MONOCYTES % (AUTO) 16.4 % (3-13); PLATELET COUNT 130 10^3/uL (150-450); RED BLOOD COUNT 3.69 10^6/uL (4.35-5.55); SEGMENTED NEUTROPHILS % (AUTO) 53.7 % (42-78); WHITE BLOOD COUNT 5.1 10^3/uL (4.0-10.5)
[2018-12-27 07:01] LABS: ABSOLUTE BASOPHILS # (AUTO) 0.1 10^3/uL (0.0-0.2); ABSOLUTE EOSINOPHILS # (AUTO) 0.2 10^3/uL (0.0-0.6); ABSOLUTE LYMPHOCYTES (AUTO) 1.3 10^3/uL (0.5-4.7); ABSOLUTE MONOCYTES (AUTO) 0.8 10^3/uL (0.1-1.4); ABSOLUTE NEUT (AUTO) 2.7 10^3/uL (1.7-8.2); BASOPHILS % (AUTO) 1.1 % (0-2); TOTAL CELLS COUNTED % (AUTO) 100 %
[2018-12-27 07:09] LABS: ALANINE AMINOTRANSFERASE 23 U/L (21-72); ALBUMIN 3.2 g/dL (3.5-5.0); ALKALINE PHOSPHATASE 59 U/L (38-126); ANION GAP 6 (5-19); ASPARTATE AMINO TRANSFERASE 26 U/L (17-59); BILIRUBIN,DIRECT 0.3 mg/dL (0.0-0.4); BILIRUBIN,TOTAL 0.9 mg/dL (0.2-1.3); BLOOD UREA NITROGEN 4 mg/dL (7-20); CALCIUM 8.1 mg/dL (8.4-10.2); CARBON DIOXIDE 31 mmol/L (22-30); CHLORIDE 102 mmol/L (98-107); GLUCOSE 174 mg/dL (75-110); POTASSIUM 4.3 mmol/L (3.6-5.0); SODIUM 139.3 mmol/L (137-145); TOTAL PROTEIN 5.8 g/dL (6.3-8.2)
[2018-12-27] MEDS: INSULIN LISPRO 100 UNIT/ML 3 ML VIAL SUBCUT SCH ×3 (07:17→17:21)
[2018-12-27] MEDS: ISOSORBIDE MONONITRATE 60 MG TAB.ER.24H PO SCH (07:35)
[2018-12-27] MEDS ORDERED: MAGNESIUM SULFATE/D5W 1 GM/100 ML RTUPB IV ONE ×2 (07:55→15:30)
[2018-12-27] MEDS ORDERED: CALCIUM GLUCONATE 1000 MG/10 ML INJ IV ONE (07:55)
[2018-12-27] MEDS: POTASSI CL 20 MEQ/D5NS 1L 20 MEQ/1,000 ML RTUINJ IV PRN (08:39)
[2018-12-27] MEDS: APIXABAN 5 MG TABLET PO SCH ×2 (09:29→17:31)
[2018-12-27] MEDS: AMLODIPINE BESYLATE 10 MG TABLET PO SCH (09:29)
[2018-12-27] MEDS: FLUTICASONE/VILANTEROL 100-25 MCG/DOSE IH SCH (09:29)
[2018-12-27] MEDS: MAGNESIUM OXIDE 400 MG TABLET PO SCH ×2 (09:29→17:31)
[2018-12-27] MEDS: CYANOCOBALAMIN (VITAMIN B-12) 1,000 MCG TABLET PO SCH (09:30)
[2018-12-27] MEDS: METOPROLOL TARTRATE 50 MG TABLET PO SCH (09:30)
[2018-12-27] MEDS: THIAMINE HCL 100 MG TABLET PO SCH (09:30)
[2018-12-27] MEDS: FOLIC ACID 1 MG TABLET PO SCH (09:30)
[2018-12-27] MEDS: PAROXETINE HCL 20 MG TABLET PO SCH (09:30)
[2018-12-27 10:32] LABS: VANCOMYCIN,TROUGH 7.4 ug/mL (5.0-20.0)
[2018-12-27 14:03] LABS: ANION GAP 7 (5-19); BLOOD UREA NITROGEN 3 mg/dL (7-20); CALCIUM 8.5 mg/dL (8.4-10.2); CARBON DIOXIDE 32 mmol/L (22-30); CHLORIDE 98 mmol/L (98-107); GLUCOSE 151 mg/dL (75-110); POTASSIUM 4.1 mmol/L (3.6-5.0); SODIUM 137.1 mmol/L (137-145)
[2018-12-27 16:23] VITALS: BP 118/64
[2018-12-31] MEDS ORDERED: ERGOCALCIFEROL (VITAMIN D2) 50000 UNIT (1.25 MG) CAPSULE PO SCH (08:00)
--- NOTE | 2019-01-12 15:48 | PDOC DISCHARGE SUMMARY ---
General - Admit/Disc Date/PCP Admission Date/Primary Care Provider: 12/23/18 22:06 [facility] Discharge Date: 12/27/18 - Discharge Diagnosis (1) C. difficile colitis Is this a current diagnosis for this admission?: Yes (2) Sigmoid diverticulitis Is this a current diagnosis for this admission?: Yes (3) Acute kidney injury superimposed on CKD Is this a current diagnosis for this admission?: Yes (4) CHF (congestive heart failure) Is this a current diagnosis for this admission?: No (5) Coronary artery disease Is this a current diagnosis for this admission?: No (6) History of pulmonary embolus (PE) Is this a current diagnosis for this admission?: No (7) Type 2 diabetes mellitus Is this a current diagnosis for this admission?: No (8) Hypomagnesemia Is this a current diagnosis for this admission?: Yes - Additional Information Resuscitation Status: Full Code Discharge Diet: As Tolerated Discharge Activity: Activity As Tolerated Prescriptions: Calcium Carbonate [Calcium] 1,000 mg PO DAILY 5 Days #5 tablet Magnesium Oxide [Mag-Ox 400 mg Tablet] 800 mg PO BID 4 Days #8 tablet Metronidazole [Flagyl 500 mg Tablet] 500 mg PO TID 10 Days #30 tablet Home Medications: Albuterol Sulfate [Proair HFA Inhalation Aerosol 8.5 gm MDI] 1 puff IH Q4HP PRN 12/24/18 Amlodipine Besylate [Norvasc 5 mg Tablet] 5 mg PO DAILY 12/24/18 Apixaban [Eliquis 5 mg Tablet] 5 mg PO Q12 12/24/18 Budesonide/Formoterol Fumarate [Symbicort HFA 80-4.5 mcg Inhaler 6.9 gm] 2 puff IH Q12 12/24/18 Ergocalciferol (Vitamin D2) [Drisdol 50,000 unit (1.25MG) Capsule] 50,000 unit PO MO@0800 12/24/18 Furosemide [Lasix 40 mg Tablet] 40 mg PO BID 12/24/18 Isosorbide Mononitrate [Imdur 60 mg Tablet.er] 60 mg PO QAM 12/24/18 Metoprolol Tartrate [Lopressor 50 mg Tablet] 50 mg PO Q12 12/24/18 Paroxetine HCl [Paxil] 30 mg PO DAILY 12/24/18 Calcium Carbonate [Calcium] 1,000 mg PO DAILY 5 Days #5 tablet 12/27/18 Magnesium Oxide [Mag-Ox 400 mg Tablet] 800 mg PO BID 4 Days #8 tablet 12/27/18 Metronidazole [Flagyl 500 mg Tablet] 500 mg PO TID 10 Days #30 tablet 12/27/18 Vancomycin HCl 125 mg PO QID 10 Days #20 vial 01/08/19 Vancomycin HCl [Firvanq] 125 mg PO QID 10 Days #100 ml 01/08/19 History of Present Illness History of Present Illness: ISAURO CARREON is a 77 year old male with a past medical history of coronary artery disease status post coronary artery bypass graft, pulmonary emboli on Eliquis hypertension and tobacco dependence. Patient presents with 1 week of nausea, diarrhea and vague abdominal pain prompting evaluation in the emergency room and found to have persistent nausea, acute diverticulitis, acute renal failure and referred to the hospitalist for admission. Patient denies previous history, denies exceptional constipation or change in medications. Hospital Course Hospital Course: (1) C. difficile colitis Diarrhea resolved. Positive C. difficile by PCR. Denies any recent sick contacts, hospitalization or antibiotic use. Received 4 days of vancomycin. Received 4 days of IV metronidazole and ceftriaxone. Discharged on metronidazole p.o. 3 times daily for another 10 days. (2) Sigmoid diverticulitis Improving. Most likely due to C. difficile colitis. Day 4 IV antibiotics. Received 3 days of IV metronidazole and ceftriaxone. Switched to vancomycin on 12/25/2018. Blood cultures on 12/23/2018 1/2+ for gram-positive cocci in clusters, pending sensitivity. Repeat blood cultures negative. Started on clear liquids and advanced as tolerated. On the day of discharge. Should p.o. tolerant. 12/23/2018. CT abdomen acute proximal sigmoid diverticulitis. No bowel obstruction. No abscess, no perforation. Discharged on metronidazole 500 g p.o. 3 times daily for 10 days. (3) Acute kidney injury superimposed on CKD Resolved. Creatinine 0.84. Prerenal. Likely due to p.o. intolerance caused by underlying sigmoid diverticulitis. Baseline 1.5 Was started on cautious diuresis guided by volume status. Daily CMP with monitoring volume status and electrolytes. (4) CHF (congestive heart failure) Compensated. Denies any anginal symptoms. Continued on beta-blockers, hold diuretics due to ELOINA. Was a started on cardiac diet, daily weights, strict in and out and beta- blockers. Was discharged home on home meds. (5) Coronary artery disease Denies anginal symptoms. History of post PCI. Restarted home meds. Outpatient PCP follow-up. (6) History of pulmonary embolus (PE) Continued apixaban 5 mg p.o. twice daily. Note: Patient was initially started on 2.5 mg p.o. twice daily apixaban due to ELOINA switched back to full dose on discharge. (7) Type 2 diabetes mellitus Controlled. A1c 5.1. Diabetic diet, pre-meal insulin, sliding scale insulin, long-acting insulin. Adjust dosage as needed. Outpatient PCP follow-up. (8) Hypomagnesemia Likely due to GI losses caused by C. difficile colitis. Daily mag level, replaced as needed. Was discharged on magnesium and calcium p.o. for another 4 days. Physical Exam Vital Signs: Temp Pulse Resp BP Pulse Ox 98.4 F 60 18 118/64 96 12/27/18 18:23 12/27/18 18:23 12/27/18 18:23 12/27/18 18:23 12/27/18 18:23 General appearance: PRESENT: no acute distress, well-developed, well-nourished Head exam: PRESENT: atraumatic, normocephalic Eye exam: PRESENT: conjunctiva pink, EOMI, PERRLA. ABSENT: scleral icterus Ear exam: PRESENT: normal external ear exam Mouth exam: PRESENT: moist, tongue midline Neck exam: ABSENT: carotid bruit, JVD, lymphadenopathy, thyromegaly Respiratory exam: PRESENT: clear to auscultation claire. ABSENT: rales, rhonchi, wheezes Cardiovascular exam: PRESENT: RRR. ABSENT: diastolic murmur, rubs, systolic murmur Pulses: PRESENT: normal dorsalis pedis pul Vascular exam: PRESENT: normal capillary refill GI/Abdominal exam: PRESENT: normal bowel sounds, soft. ABSENT: distended, guarding, mass, organolmegaly, rebound, tenderness Rectal exam: PRESENT: deferred Extremities exam: PRESENT: full ROM. ABSENT: calf tenderness, clubbing, pedal edema Neurological exam: PRESENT: alert, awake, oriented to person, oriented to place, oriented to time, oriented to situation, CN II-XII grossly intact. ABSENT: motor sensory deficit Psychiatric exam: PRESENT: appropriate affect, normal mood. ABSENT: homicidal ideation, suicidal ideation Skin exam: PRESENT: dry, intact, warm. ABSENT: cyanosis, rash Results Laboratory Results: 12/27/18 06:41 12/27/18 13:28 12/23/18 17:50 Troponin I 0.029 Impressions: Chest X-Ray 12/23/18 16:29 IMPRESSION: NO ACUTE FINDINGS. Abdomen/Pelvis CT 12/23/18 20:19 IMPRESSION: 1. Acute proximal sigmoid diverticulitis. 2. No bowel obstruction, perforation, or abscess 3. Atherosclerosis 4. Previous cholecystectomy 5. IVC filter Qualifiers - * PATIENT BEING DISCHARGED WITH ANY OF THE FOLLOWING DIAGNOSIS: No Acute Heart Failure - Is this a Heart Failure Patient?: No
== END 2018-12-27 19:00 | disposition home or self-care (01) | DRG 372 ==
LOC: ER 15:59 → EH 22:06 → 4S 23:50
PROVIDERS: ADMIT Internal Medicine; ATTEND Internal Medicine
DX: A04.72 Enterocolitis due to Clostridium difficile, not specified as recurrent (principal); K57.32 Diverticulitis of large intestine without perforation or abscess without bleeding; N17.9 Acute kidney failure, unspecified; I13.0 Hypertensive heart and chronic kidney disease with heart failure and stage 1 through stage 4 chronic kidney disease, or unspecified chronic kidney disease; I50.9 Heart failure, unspecified; I25.10 Atherosclerotic heart disease of native coronary artery without angina pectoris; E11.22 Type 2 diabetes mellitus with diabetic chronic kidney disease; E83.42 Hypomagnesemia; N18.9 Chronic kidney disease, unspecified; J44.9 Chronic obstructive pulmonary disease, unspecified; E78.5 Hyperlipidemia, unspecified; F17.200 Nicotine dependence, unspecified, uncomplicated; Z86.711 Personal history of pulmonary embolism; Z95.1 Presence of aortocoronary bypass graft; I25.2 Old myocardial infarction; Z79.01 Long term (current) use of anticoagulants; Z82.49 Family history of ischemic heart disease and other diseases of the circulatory system; Z88.1 Allergy status to other antibiotic agents; Z88.8 Allergy status to other drugs, medicaments and biological substances; Z79.4 Long term (current) use of insulin
CPT/HCPCS: 36415; 71045; 74176; 80048; 80053; 80061; 80202; 81001; 82565; 82607; 82728; 82746; 82803; 82962; 83036; 83540; 83550; 83605; 83690; 83735; 84484; 85025; 85045; 87040; 87045; 87077; 87186; 87205; 87493; 93005; 93010; 96361; 96374; 96375; 99285; J0610; J0696; J1815; J2405; J2765; J3370; J3475; J3480; J3490; J7030; J7050; J7060; J7120

== ENCOUNTER 2019-01-02 12:27 | Emergency (ER) | payer OTHER, MEDICARE ==
--- NOTE | 2019-01-02 12:58 | ER Document Report ---
ED Medical Screen (RME) - General Chief Complaint: General Weakness Stated Complaint: DIAHRREA,WEAKNESS,DIZZINESS Time Seen by Provider: 01/02/19 12:52 [facility] Provider: [facility] [[facility]] - Follow up as needed Mode of Arrival: Ambulatory Information source: Patient Notes: Patient is a 78-year-old male presented to the emergency department with p ersistent diarrhea. Patient reports he was discharged from this facility on 12/27/2018 for nausea vomiting and diarrhea. He states since then he is consistently had diarrhea and now feels very dizzy. Patient reports he was seen at [facility] today and told to come to the emergency department. He denies any abdominal pain and is unsure if he has had fevers but thinks he may have intermittent fevers. I have greeted and performed a rapid initial assessment of this patient. A comprehensive ED assessment and evaluation of the patient, analysis of test results and completion of the medical decision making process will be conducted by additional ED providers. Dictation of this chart was performed using voice recognition software; therefore, there may be some unintended grammatical errors . TRAVEL OUTSIDE OF THE [place] IN LAST 30 DAYS: No - Related Data Allergies/Adverse Reactions: ciprofloxacin [From Cipro] Allergy (Verified 01/02/19 12:30) enalapril maleate [From Vasotec] Allergy (Verified 01/02/19 12:30) niacin [From Niaspan] Allergy (Verified 01/02/19 12:30) Past Medical History - Social History Chew tobacco use (# tins/day): No Frequency of alcohol use: Occasional Drug Abuse: None - Past Medical History Cardiac Medical History: Reports: Hx Coronary Artery Disease, Hx Heart Attack - 2006, Hx Hypercholesterolemia, Hx Hypertension, Hx Pulmonary Embolism - x3 last 2007, on Eliquis Pulmonary Medical History: Reports: Hx Asthma, Hx COPD, Hx Tuberculosis Endocrine Medical History: Reports: Hx Diabetes Mellitus Type 2 Renal/ Medical History: Denies: Hx Peritoneal Dialysis Psychiatric Medical History: Reports: Hx Depression Past Surgical History: Reports: Hx Abdominal Surgery - colon polyps, Hx Cardiac Surgery - CABGx1, Hx Cholecystectomy, Hx Coronary Artery Bypass Graft - 2006, Hx Open Heart Surgery, Hx Rectal Surgery - colon polyps, Hx Urinary Tract Surgery - Immunizations Hx Diphtheria, Pertussis, Tetanus Vaccination: Yes History of Influenza Vaccine for 04/2017 - 09/2017 Season: Refused Physical Exam - Vital signs Vitals: Temp Pulse Resp BP Pulse Ox 98.5 F 55 L 16 133/78 H 97 01/02/19 12:30 01/02/19 12:30 01/02/19 12:30 01/02/19 12:30 01/02/19 12:30 Course - Vital Signs Vital signs: Temp Pulse Resp BP Pulse Ox 98.5 F 55 L 16 133/78 H 97 01/02/19 12:30 01/02/19 12:30 01/02/19 12:30 01/02/19 12:30 01/02/19 12:30 Doctor's Discharge - Discharge Referrals: [facility] [Primary [facility]] - Follow up as needed
[2019-01-02 14:06] LABS: ABSOLUTE BASOPHILS # (AUTO) 0.1 10^3/uL (0.0-0.2); ABSOLUTE EOSINOPHILS # (AUTO) 0.2 10^3/uL (0.0-0.6); ABSOLUTE LYMPHOCYTES (AUTO) 1.3 10^3/uL (0.5-4.7); ABSOLUTE MONOCYTES (AUTO) 0.9 10^3/uL (0.1-1.4); ABSOLUTE NEUT (AUTO) 3.5 10^3/uL (1.7-8.2); BASOPHILS % (AUTO) 1.4 % (0-2); EOSINOPHILS % (AUTO) 2.5 % (0-6); HEMATOCRIT 39.5 % (37.9-51.0); HEMOGLOBIN 12.9 g/dL (13.5-17.0); LYMPHOCYTES % (AUTO) 22.5 % (13-45); MEAN CORPUSCULAR HEMOGLOBIN 31.9 pg (27.0-33.4); MEAN CORPUSCULAR HGB CONC 32.8 g/dL (32.0-36.0); MEAN CORPUSCULAR VOLUME 98 fl (80-97); MONOCYTES % (AUTO) 14.5 % (3-13); PLATELET COUNT 244 10^3/uL (150-450); RED BLOOD COUNT 4.05 10^6/uL (4.35-5.55); RED CELL DISTRIBUTION WIDTH 15.4 % (11.5-14.0); SEGMENTED NEUTROPHILS % (AUTO) 59.1 % (42-78); TOTAL CELLS COUNTED % (AUTO) 100 %; WHITE BLOOD COUNT 5.9 10^3/uL (4.0-10.5)
[2019-01-02 14:41] LABS: ALANINE AMINOTRANSFERASE 21 U/L (21-72); ALBUMIN 3.9 g/dL (3.5-5.0); ALKALINE PHOSPHATASE 64 U/L (38-126); ANION GAP 10 (5-19); ASPARTATE AMINO TRANSFERASE 23 U/L (17-59); BILIRUBIN,DIRECT 0.3 mg/dL (0.0-0.4); BILIRUBIN,TOTAL 0.6 mg/dL (0.2-1.3); BLOOD UREA NITROGEN 16 mg/dL (7-20); CALCIUM 9.5 mg/dL (8.4-10.2); CARBON DIOXIDE 30 mmol/L (22-30); CHLORIDE 98 mmol/L (98-107); GLUCOSE 154 mg/dL (75-110); LIPASE 382.2 U/L (23-300); POTASSIUM 4.2 mmol/L (3.6-5.0); SODIUM 138.1 mmol/L (137-145); TOTAL PROTEIN 6.8 g/dL (6.3-8.2)
[2019-01-02] MEDS ORDERED: NORMAL SALINE 1000 ML 500 ML IV ONE (17:26)
--- NOTE | 2019-01-02 17:56 | ER Document Report ---
ED General - General Chief Complaint: General Weakness Stated Complaint: DIAHRREA,WEAKNESS,DIZZINESS Time Seen by Provider: 01/02/19 12:52 Primary Care Provider: [facility] [Primary Care [facility]] - Follow up as needed Mode of Arrival: Ambulatory Notes: Patient is a 78-year-old male presents to the emergency department with a chief complaint of diarrhea. Patient states that he was discharged here December 27 with a diagnosis of C. difficile. Patient states he was placed on an antibiotic whic h she is unsure of the name, he takes 3 times daily and is still taking it. Patient states that during his visit he was diagnosed with acute kidney injury, dehydration, diverticulitis. Patient denies abdominal pain at this time. Patient states that the diarrhea is watery without blood in his stool. She states that the diarrhea has not subsided since leaving the hospital and estimates having about 3 episodes per day. Patient states that yesterday he began to feel generally weak and did develop dizziness when walking. Patient denies fever or vomiting. Patient states that he has been able to eat and drink normally but that it "goes right through me." TRAVEL OUTSIDE OF THE [place] IN LAST 30 DAYS: No - Related Data Allergies/Adverse Reactions: ciprofloxacin [From Cipro] Allergy (Verified 01/02/19 12:30) enalapril maleate [From Vasotec] Allergy (Verified 01/02/19 12:30) niacin [From Niaspan] Allergy (Verified 01/02/19 12:30) Past Medical History - General Information source: Patient - Social History Smoking Status: Current Some Day Smoker Chew tobacco use (# tins/day): No Frequency of alcohol use: Occasional Drug Abuse: None Family History: CVA, Hypertension Patient has suicidal ideation: No Patient has homicidal ideation: No - Past Medical History Cardiac Medical History: Reports: Hx Coronary Artery Disease, Hx Heart Attack - 2006, Hx Hypercholesterolemia, Hx Hypertension, Hx Pulmonary Embolism - x3 last 2007, on Eliquis Pulmonary Medical History: Reports: Hx Asthma, Hx COPD, Hx Tuberculosis EENT Medical History: Reports: None Neurological Medical History: Reports: None Endocrine Medical History: Reports: Hx Diabetes Mellitus Type 2 Renal/ Medical History: Reports: None. Denies: Hx Peritoneal Dialysis Malignancy Medical History: Reports None GI Medical History: Reports: Hx Diverticulitis, Other Other: C. diff Musculoskeletal Medical History: Reports None Skin Medical History: Reports None Psychiatric Medical History: Reports: Hx Depression Traumatic Medical History: Reports: None Infectious Medical History: Reports: Hx C-Diff Past Surgical History: Reports: Hx Abdominal Surgery - colon polyps, Hx Cardiac Surgery - CABGx1, Hx Cholecystectomy, Hx Coronary Artery Bypass Graft - 2007, Hx Open Heart Surgery, Hx Rectal Surgery - colon polyps, Hx Urinary Tract Surgery - Immunizations Hx Diphtheria, Pertussis, Tetanus Vaccination: Yes Hx Pneumococcal Vaccination: 07/17/09 Review of Systems - Review of Systems Constitutional: See HPI EENT: No symptoms reported Cardiovascular: No symptoms reported Respiratory: No symptoms reported Gastrointestinal: See HPI Genitourinary: No symptoms reported Male Genitourinary: No symptoms reported Musculoskeletal: No symptoms reported Skin: No symptoms reported Hematologic/Lymphatic: No symptoms reported Neurological/Psychological: No symptoms reported Physical Exam - Vital signs Vitals: Temp Pulse Resp BP Pulse Ox 98.5 F 55 L 16 133/78 H 97 01/02/19 12:30 01/02/19 12:30 01/02/19 12:30 01/02/19 12:30 01/02/19 12:30 Interpretation: Bradycardic - Notes Notes: GENERAL: Well-appearing, well-nourished and in no acute distress. HEAD: Atraumatic, normocephalic. EYES: Pupils equal round and reactive to light, extraocular movements intact, sclera anicteric, conjunctiva are normal. ENT: Nares patent, oropharynx clear without exudates. Moist mucous dry. NECK: Normal range of motion, supple without lymphadenopathy or JVD. LUNGS: Breath sounds clear to auscultation bilaterally and equal. No wheezes rales or rhonchi. HEART: Regular rate and rhythm without murmurs, rubs or gallops. ABDOMEN: Soft, nontender, hyperactive bowel sounds. No guarding, no rebound. No masses appreciated. BACK: No cervical, thoracic, lumbar midline tenderness. No saddle anesthesia, normal distal neurovascular exam. GENITOURINARY: Deferred. EXTREMITIES: Normal range of motion, no pitting or edema. No clubbing or cyanosis. NEUROLOGICAL: Cranial nerves II through XII grossly intact. Normal speech, normal gait. PSYCH: Normal mood, normal affect. SKIN: Warm, Dry, normal turgor, no rashes or lesions noted. Blood pressure Course - Re-evaluation Re-evalutation: 01/02/19 19:32 Upon reevaluation patient did receive 1 L of normal saline for hydration. Patient's lungs remain clear and patient is without shortness of breath. Patient states that he does feel much better. Informed patient that he needs to continue his oral antibiotics and to increase his fluid intake carefully as he does have congestive heart failure and would not want to go and fluid overload. Patient states he will follow-up with the [facility] tomorrow. - Vital Signs Vital signs: Temp Pulse Resp BP Pulse Ox 97.5 F 56 L 16 137/71 H 95 01/02/19 17:51 01/02/19 17:51 01/02/19 17:51 01/02/19 17:51 01/02/19 17:51 - Laboratory Result Diagrams: 01/02/19 13:52 01/02/19 13:52 Laboratory results interpreted by me: 01/02/19 01/02/19 13:52 13:52 RBC 4.05 L Hgb 12.9 L MCV 98 H RDW 15.4 H Monocytes % 14.5 H Creatinine 1.36 H Est GFR (Non-Af Amer) 51 L Glucose 154 H Lipase 382.2 H Discharge - Discharge Clinical Impression: C. difficile diarrhea, Dizziness, Elevated serum creatinine Condition: Stable Disposition: HOME, SELF-CARE Additional Instructions: Today you were seen in the emergency department for diarrhea and weakness. Your kidney function was slightly elevated, this could be due to the small amount of dehydration from the diarrhea that you have reported. We have given you IV fluids and you state you feel much better. Please continue to push oral hydration to prevent dehydration. Please do this slowly as you do not want to go into fluid overload due to the congestive heart failure. Please continue your oral antibiotic that was prescribed to you at discharge from the hospital. Please follow-up with the [facility] for a follow-up visit of your symptoms. We were unable to collect a specimen while you are here in the emergency department as you have not had any diarrhea. This is promising. The C. difficile infection can take weeks to improve. Please return to the emergency department for worsening symptoms to include abdominal pain, fever, black or bloody stools, vomiting of blood, inability to urinate or passing very little urine, dizziness or weakness or any other concerning signs or symptoms. C. (Clostridium) Difficile Infection C. difficile bacteria are everywhere - in soil, air, water, human and animal feces, and on most surfaces. The bacteria don't create problems until they grow in abnormally large numbers in the intestinal tract of people taking antibiotics or other antimicrobial drugs. Then, C. difficile can cause symptoms ranging from diarrhea to life-threatening inflammations of the colon. According to the Centers for Disease Control and Prevention, each year in the [place] C. difficile is responsible for tens of thousands of cases of diarrhea and at least 5,000 deaths. And the problem is getting worse. The number of C. difficile infections doubled between 1992 and 2002, with most of the increase coming after 1999. Your intestinal tract contains hundreds of kinds of bacteria (intestinal elicia). Many are essential, helping to synthesize certain vitamins and stimulating the immune system. And some play a young role in suppressing the growth of harmful organisms. But when you take an antibiotic to treat an infection, it often destroys these beneficial bacteria as well as the bacteria that's causing your illness. Without enough healthy bacteria, dangerous pathogens such as C. difficile can quickly grow out of control. Once it takes hold, C. difficile can produce two virulent toxins that attack the lining of the intestine. The toxins destroy cells and produce pseudomembranes - telltale patches (plaques) of inflammatory cells and decaying cellular debris on the interior surface of the colon. Almost any antibiotic can cause harmful bacteria to proliferate in the intestine, but ampicillin, amoxicillin, clindamycin, fluoroquinolones and cephalosporins are most often implicated in C. difficile infections. The use of broad-spectrum drugs that target a wide range of bacteria and the taking of antibiotics for a prolonged period increase the chance of infection. Other antimicrobials, including antiviral and antifungal drugs, and chemotherapy medications also can lead to an increased risk of infection with C. difficile. It's also a growing problem among otherwise healthy people. And although the infection can usually be controlled with antibiotics, virulent strains of C. difficile are now appearing that resist treatment with common medications. Referrals: [facility] [Primary Care [facility]] - Follow up as needed
[2019-01-02 20:27] VITALS: BP 147/71
== END 2019-01-02 20:26 | disposition home or self-care (01) ==
LOC: ER 12:27
DX: A04.72 Enterocolitis due to Clostridium difficile, not specified as recurrent (principal); R42 Dizziness and giddiness; R53.1 Weakness; R19.7 Diarrhea, unspecified; F17.200 Nicotine dependence, unspecified, uncomplicated; I25.10 Atherosclerotic heart disease of native coronary artery without angina pectoris; Z79.01 Long term (current) use of anticoagulants; I10 Essential (primary) hypertension
CPT/HCPCS: 99284; 36415; 83690; 85025; 80053; J7030

== ENCOUNTER 2019-01-08 20:38 | Emergency (ER) | payer OTHER, MEDICARE ==
--- NOTE | 2019-01-08 21:46 | ER Document Report ---
ED General - General Stated Complaint: POSSIBLE DIARRHEA Time Seen by Provider: 01/08/19 21:18 Primary Care Provider: HEMALATHA CLEMENTE MD [ACTIVE STAFF] - Follow up in 3-5 days (gastroenterology ) [facility] [Primary [facility]] - Follow up in 3-5 days Notes: Patient is a 78-year-old male that presents to the emergency department for chief complaint of diarrhea. Patient reports that he was recently in the hospital several days, being treated for diverticulitis and C. difficile, he states he was discharged home on Flagyl, which she finished yesterday, despite being on the medication, continues to have diarrhea he had 8 episodes today. He denies having any pain associated with this, denies any lightheadedness, but feels generally weak. Denies any nausea or vomiting. He also denies having fevers, chills, night sweats, chest pain, shortness of breath or difficulty breathing. His main issue is that he continues to have the diarrhea and has not been improving since his discharge. Past Medical History: History of diverticulitis, hypertension, hyperlipidemia, CAD, diabetes Past Surgical History: CABG, cholecystectomy Social History: Denies current tobacco, alcohol or illicit drug use, lives at home Family History: Reviewed and noncontributory for presenting illness Allergies: Reviewed, see documented allergy list. REVIEW OF SYSTEMS: Other than noted above, the 12 point review of systems was reviewed with the patient and were negative, all pertinent findings are included in the HPI. PHYSICAL EXAMINATION: Vital signs reviewed, nursing noted reviewed. GENERAL: Well-appearing, elderly male, well-nourished and in no acute distress. HEAD: Atraumatic, normocephalic. EYES: Eyes appear normal, extraocular movements intact, sclera anicteric, conjunctiva are normal. ENT: nares patent, oropharynx clear without exudates. Moist mucous membranes. NECK: Normal range of motion, supple without lymphadenopathy LUNGS: Breath sounds clear to auscultation bilaterally and equal. No wheezes rales or rhonchi. HEART: Regular rate and rhythm without murmurs ABDOMEN: Soft, nontender, normoactive bowel sounds. No rebound, guarding, or rigidity. No masses appreciated. EXTREMITIES: Nontender, good range of motion, no pitting or edema. NEUROLOGICAL: No focal neurological deficits. Moves all extremities spontaneously Motor and sensory grossly intact on exam. PSYCH: Normal mood, normal affect. SKIN: Warm, Dry, normal turgor, no rashes or lesions noted on exposed skin TRAVEL OUTSIDE OF THE [place] IN LAST 30 DAYS: No - Related Data Allergies/Adverse Reactions: ciprofloxacin [From Cipro] Allergy (Verified 01/02/19 12:30) enalapril maleate [From Vasotec] Allergy (Verified 01/02/19 12:30) niacin [From Niaspan] Allergy (Verified 01/02/19 12:30) Past Medical History - Social History Smoking Status: Never Smoker Family History: CVA, Hypertension - Past Medical History Cardiac Medical History: Reports: Hx Coronary Artery Disease, Hx Heart Attack - 2006, Hx Hypercholesterolemia, Hx Hypertension, Hx Pulmonary Embolism - x3 last 2007, on Eliquis Pulmonary Medical History: Reports: Hx Asthma, Hx COPD, Hx Tuberculosis Endocrine Medical History: Reports: Hx Diabetes Mellitus Type 2 Renal/ Medical History: Denies: Hx Peritoneal Dialysis GI Medical History: Reports: Hx Diverticulitis Psychiatric Medical History: Reports: Hx Depression Infectious Medical History: Reports: Hx C-Diff Past Surgical History: Reports: Hx Abdominal Surgery - colon polyps, Hx Cardiac Surgery - CABGx1, Hx Cholecystectomy, Hx Coronary Artery Bypass Graft - 2006, Hx Open Heart Surgery, Hx Rectal Surgery - colon polyps, Hx Urinary Tract Surgery - Immunizations Hx Diphtheria, Pertussis, Tetanus Vaccination: Yes Hx Pneumococcal Vaccination: 07/17/09 Physical Exam - Vital signs Vitals: Temp Pulse Resp BP Pulse Ox 98.1 F 57 L 20 109/70 94 01/08/19 20:45 01/08/19 20:45 01/08/19 20:45 01/08/19 20:45 01/08/19 20:45 Course - Re-evaluation Re-evalutation: Patient seen and examined vital signs reviewed. Laboratory data and/or imaging were ordered as appropriate for the patient's presenting symptoms and complaint, with consideration of any critical or life threatening conditions that may be associated with their obtained history and exam as noted above. Patient was treated with IV fluids, and oral vancomycin 125 mg Results were reviewed when available and demonstrated no leukocytosis, anemia stable, blood work was otherwise unremarkable, no renal impairment The patient was re-evaluated and was stable, tolerated medication well, and felt comfortable being discharged, discussed with the patient that he does have C. di kristenicile still, and do not feel that he was properly treated with oral Flagyl, and will need oral vancomycin, this is prescribed to him in 2 different formulations, depending on his insurance coverage, he is advised of the pharmacy and have them run it through the insurance to see which is covered. Evaluation was most consistent with C. difficile colitis, with continued diarrhea Results were discussed with the patient at this point, after careful consideration I feel that that patient can be discharged from the emergency department, the patient was educated treatments and reasons to return to the emergency department based on their presumed diagnosis as noted above, they were advised to followup with a primary care physician in 2-3 days. Patient was agreeable to plan of care. *Note is created using voice recognition software and may contain spelling, syntax or grammatical errors. Laboratory 01/08/19 01/08/19 22:06 22:06 WBC 7.1 RBC 3.83 L Hgb 12.3 L Hct 37.3 L MCV 97 MCH 32.0 MCHC 32.9 RDW 15.3 H Plt Count 275 Seg Neutrophils % 53.0 Lymphocytes % 27.0 Monocytes % 13.7 H Eosinophils % 4.5 Basophils % 1.8 Absolute Neutrophils 3.7 Absolute Lymphocytes 1.9 Absolute Monocytes 1.0 Absolute Eosinophils 0.3 Absolute Basophils 0.1 Sodium 140.0 Potassium 4.6 Chloride 103 Carbon Dioxide 26 Anion Gap 11 BUN 15 Creatinine 1.25 Est GFR ( Amer) > 60 Est GFR (Non-Af Amer) 56 L Glucose 71 L Calcium 9.2 Magnesium 1.6 Total Bilirubin 0.6 Direct Bilirubin 0.2 Neonat Total Bilirubin Not Reportable Neonat Direct Bilirubin Not Reportable Neonat Indirect Bili Not Reportable AST 36 ALT 26 Alkaline Phosphatase 61 Total Protein 6.3 Albumin 3.5 Lipase 118.6 - Vital Signs Vital signs: Temp Pulse Resp BP Pulse Ox 97.3 F 62 16 123/66 95 01/08/19 23:36 01/08/19 23:36 01/08/19 23:36 01/08/19 23:36 01/08/19 23:36 - Laboratory Result Diagrams: 01/08/19 22:06 01/08/19 22:06 Laboratory results interpreted by me: 01/08/19 01/08/19 22:06 22:06 RBC 3.83 L Hgb 12.3 L Hct 37.3 L RDW 15.3 H Monocytes % 13.7 H Est GFR (Non-Af Amer) 56 L Glucose 71 L Discharge - Discharge Clinical Impression: C. difficile diarrhea Condition: Stable Disposition: HOME, SELF-CARE Instructions: C. (Clostridium) Difficile Infection ([facility]) Additional Instructions: Please take the prescribed antibiotic as directed, you have been given 2 prescriptions, one is for a liquid formulation, the other is for the IV formulation taken as an oral liquid, depending on your insurance, one may be more affordable than the other, please show them to the pharmacy, and ask for their recommendations. Please take the medication as directed for a total of 10 days, and [facility] for an appointment tomorrow. Make sure to drink plenty of fluids to stay hydrated. Prescriptions: RX: Vancomycin HCl 125 mg PO QID 10 Days #20 vial RX: Vancomycin HCl [Firvanq] 125 mg PO QID 10 Days #100 ml Referrals: [facility] [[facility]] - Follow up in 3-5 days HEMALATHA CLEMENTE MD [ACTIVE STAFF] - Follow up in 3-5 days (gastroenterology )
[2019-01-08] MEDS ORDERED: RINGERS SOLUTION,LACTATED 1,000 ML IV ONE (21:47)
[2019-01-08 22:23] LABS: ABSOLUTE BASOPHILS # (AUTO) 0.1 10^3/uL (0.0-0.2); ABSOLUTE EOSINOPHILS # (AUTO) 0.3 10^3/uL (0.0-0.6); ABSOLUTE LYMPHOCYTES (AUTO) 1.9 10^3/uL (0.5-4.7); ABSOLUTE NEUT (AUTO) 3.7 10^3/uL (1.7-8.2); BASOPHILS % (AUTO) 1.8 % (0-2); EOSINOPHILS % (AUTO) 4.5 % (0-6); HEMATOCRIT 37.3 % (37.9-51.0); HEMOGLOBIN 12.3 g/dL (13.5-17.0); MEAN CORPUSCULAR HGB CONC 32.9 g/dL (32.0-36.0); MEAN CORPUSCULAR VOLUME 97 fl (80-97); MONOCYTES % (AUTO) 13.7 % (3-13); PLATELET COUNT 275 10^3/uL (150-450); RED BLOOD COUNT 3.83 10^6/uL (4.35-5.55); RED CELL DISTRIBUTION WIDTH 15.3 % (11.5-14.0); TOTAL CELLS COUNTED % (AUTO) 100 %; WHITE BLOOD COUNT 7.1 10^3/uL (4.0-10.5)
[2019-01-08 22:43] LABS: ALANINE AMINOTRANSFERASE 26 U/L (21-72); ALBUMIN 3.5 g/dL (3.5-5.0); ALKALINE PHOSPHATASE 61 U/L (38-126); ANION GAP 11 (5-19); ASPARTATE AMINO TRANSFERASE 36 U/L (17-59); BILIRUBIN,DIRECT 0.2 mg/dL (0.0-0.4); BILIRUBIN,TOTAL 0.6 mg/dL (0.2-1.3); BLOOD UREA NITROGEN 15 mg/dL (7-20); CALCIUM 9.2 mg/dL (8.4-10.2); CARBON DIOXIDE 26 mmol/L (22-30); CHLORIDE 103 mmol/L (98-107); GLUCOSE 71 mg/dL (75-110); LIPASE 118.6 U/L (23-300); POTASSIUM 4.6 mmol/L (3.6-5.0); TOTAL PROTEIN 6.3 g/dL (6.3-8.2)
[2019-01-08] MEDS ORDERED: VANCOMYCIN HCL INJ 500 MG VIAL PO ONE (22:48)
[2019-01-08 23:44] VITALS: BP 123/66
== END 2019-01-08 23:44 | disposition home or self-care (01) ==
LOC: ER 20:38
DX: A04.72 Enterocolitis due to Clostridium difficile, not specified as recurrent (principal); I25.10 Atherosclerotic heart disease of native coronary artery without angina pectoris; I10 Essential (primary) hypertension; E78.00 Pure hypercholesterolemia, unspecified; J44.9 Chronic obstructive pulmonary disease, unspecified; E11.9 Type 2 diabetes mellitus without complications; Z86.711 Personal history of pulmonary embolism; Z79.01 Long term (current) use of anticoagulants; Z95.1 Presence of aortocoronary bypass graft; Z90.49 Acquired absence of other specified parts of digestive tract; Z88.3 Allergy status to other anti-infective agents; I25.2 Old myocardial infarction
CPT/HCPCS: 99284; 96360; 36415; 83690; 83735; 85025; 80053; J3370; J7120

== ENCOUNTER 2019-01-18 08:42 | Emergency (ER) | payer OTHER, MEDICARE ==
[2019-01-18] MEDS ORDERED: NORMAL SALINE 500 ML IV ONE (09:17)
--- NOTE | 2019-01-18 09:19 | ER Document Report ---
ED Medical Screen (RME) - General Mode of Arrival: Wheelchair Information source: Patient TRAVEL OUTSIDE OF THE [place] IN LAST 30 DAYS: No <MARITZA VERONICA - Last Filed: 01/18/19 09:18> <BEN HAJI - Last Filed: 01/18/19 14:17> - General Chief Complaint: Loose Stools Stated Complaint: DIARRHEA Time Seen by Provider: 01/18/19 09:15 [facility] [[facility]] - Follow up as needed Notes: Patient is a 78-year-old male presented to the emergency department chief complaint of diarrhea since 12/20/2018. Patient reports he has C. difficile currently and is taking vancomycin. Patient reports diarrhea has persisted and he continues to have diarrhea at least 6 times daily. He denies any specific abdominal pain, vomiting or fevers. Exam: Abdomen soft, nontender with no guarding no rebound. I have greeted and performed a rapid initial assessment of this patient. A co mprehensive ED assessment and evaluation of the patient, analysis of test results and completion of the medical decision making process will be conducted by additional ED providers. I have specifically instructed the patient or family members with the patient to immediately return to any nursing staff should anything change in the patient's condition or with their chief complaint. This medical record was dictated with voice recognizing software. There may be grammatical, syntax errors that are unintended. (MARITZA VERONICA) - [facility] Notes: 01/18/19 14:15 Patient is a 78-year-old male who presents emergency department for evaluation of diarrhea. He was originally admitted to the hospital at the beginning of December. He was diagnosed with diverticulitis, C. difficile. He states he was sent home on antibiotics. He states he continues to have 4-6 episodes of diarrhea daily. He denies any fevers or chills. No nausea or vomiting. He denies any ghazal pain with this. He is still urinating. He is currently on vancomycin 4 times daily. He states he is taking that as prescribed. (BEN HAJI) - Related Data Allergies/Adverse Reactions: ciprofloxacin [From Cipro] Allergy (Verified 01/18/19 08:43) enalapril maleate [From Vasotec] Allergy (Verified 01/18/19 08:43) niacin [From Niaspan] Allergy (Verified 01/18/19 08:43) Past Medical History - Past Medical History Cardiac Medical History: Reports: Hx Atrial Fibrillation, Hx Congestive Heart Failure, Hx Coronary Artery Disease, Hx Heart Attack - 2006, Hx Hypercholesterolemia, Hx Hypertension, Hx Pulmonary Embolism - x3 last 2007, on Eliquis Pulmonary Medical History: Reports: Hx Asthma, Hx COPD, Hx Tuberculosis Endocrine Medical History: Reports: Hx Diabetes Mellitus Type 2 Renal/ Medical History: Denies: Hx Peritoneal Dialysis GI Medical History: Reports: Hx Diverticulitis Psychiatric Medical History: Reports: Hx Depression Infectious Medical History: Reports: Hx C-Diff Past Surgical History: Reports: Hx Abdominal Surgery - colon polyps, Hx Cardiac Surgery - CABGx1, Hx Cholecystectomy, Hx Coronary Artery Bypass Graft - 2006, Hx Open Heart Surgery, Hx Rectal Surgery - colon polyps, Hx Urinary Tract Surgery - Immunizations Hx Diphtheria, Pertussis, Tetanus Vaccination: Yes History of Influenza Vaccine for 04/2017 - 09/2017 Season: Refused <MARITZA VERONICA - Last Filed: 01/18/19 09:18> - General Information source: Patient <BEN HAJI - Last Filed: 01/18/19 14:17> - Vital signs Vitals: Temp Pulse Resp BP Pulse Ox 98.4 F 71 20 119/75 94 01/18/19 08:53 01/18/19 08:53 01/18/19 08:53 01/18/19 08:53 01/18/19 08:53 Course - Laboratory Result Diagrams: 01/18/19 09:31 01/18/19 09:31 <BEN HAJI M - Last Filed: 01/18/19 14:17> - Vital Signs Vital signs: Temp Pulse Resp BP Pulse Ox 98.4 F 71 20 119/75 94 01/18/19 08:53 01/18/19 08:53 01/18/19 08:53 01/18/19 08:53 01/18/19 08:53 - Laboratory Laboratory results interpreted by me: 01/18/19 01/18/19 09:31 09:31 RBC 4.20 L Hgb 13.3 L RDW 14.7 H Eosinophils % 7.4 H Basophils % 2.4 H Carbon Dioxide 32 H ALT 18 L Doctor's Discharge <MARITZA VERONICA - Last Filed: 01/18/19 09:18> <BEN HAJI - Last Filed: 01/18/19 14:17> - Discharge [facility]errals: [facility] - Follow up as needed
[2019-01-18 09:48] LABS: ABSOLUTE BASOPHILS # (AUTO) 0.1 10^3/uL (0.0-0.2); ABSOLUTE EOSINOPHILS # (AUTO) 0.4 10^3/uL (0.0-0.6); ABSOLUTE LYMPHOCYTES (AUTO) 1.6 10^3/uL (0.5-4.7); ABSOLUTE MONOCYTES (AUTO) 0.5 10^3/uL (0.1-1.4); ABSOLUTE NEUT (AUTO) 2.5 10^3/uL (1.7-8.2); BASOPHILS % (AUTO) 2.4 % (0-2); EOSINOPHILS % (AUTO) 7.4 % (0-6); HEMATOCRIT 40.1 % (37.9-51.0); HEMOGLOBIN 13.3 g/dL (13.5-17.0); LYMPHOCYTES % (AUTO) 31.3 % (13-45); MEAN CORPUSCULAR HEMOGLOBIN 31.6 pg (27.0-33.4); MEAN CORPUSCULAR VOLUME 96 fl (80-97); MONOCYTES % (AUTO) 10.4 % (3-13); PLATELET COUNT 195 10^3/uL (150-450); RED CELL DISTRIBUTION WIDTH 14.7 % (11.5-14.0); SEGMENTED NEUTROPHILS % (AUTO) 48.5 % (42-78); TOTAL CELLS COUNTED % (AUTO) 100 %; WHITE BLOOD COUNT 5.1 10^3/uL (4.0-10.5)
[2019-01-18 10:06] LABS: ALANINE AMINOTRANSFERASE 18 U/L (21-72); ALBUMIN 3.8 g/dL (3.5-5.0); ALKALINE PHOSPHATASE 48 U/L (38-126); ANION GAP 10 (5-19); ASPARTATE AMINO TRANSFERASE 37 U/L (17-59); BILIRUBIN,DIRECT 0.3 mg/dL (0.0-0.4); BILIRUBIN,TOTAL 0.9 mg/dL (0.2-1.3); BLOOD UREA NITROGEN 8 mg/dL (7-20); CARBON DIOXIDE 32 mmol/L (22-30); CHLORIDE 99 mmol/L (98-107); GLUCOSE 88 mg/dL (75-110); LIPASE 71.8 U/L (23-300); POTASSIUM 4.2 mmol/L (3.6-5.0); SODIUM 140.5 mmol/L (137-145); TOTAL PROTEIN 6.8 g/dL (6.3-8.2)
[2019-01-18 10:39] LABS: APPEARANCE,URINE CLEAR; BILIRUBIN,URINE NEGATIVE (NEGATIVE); COLOR,URINE YELLOW; GLUCOSE, URINE NEGATIVE (NEGATIVE); KETONES,URINE NEGATIVE (NEGATIVE); LEUKOCYTE ESTERASE,URINE NEGATIVE (NEGATIVE); NITRITE,URINE NEGATIVE (NEGATIVE); PROTEIN,URINE NEGATIVE (NEGATIVE); URINE SPECIFIC GRAVITY 1.005; UROBILINOGEN,URINE NEGATIVE mg/dL (<2.0)
--- NOTE | 2019-01-18 14:31 | ER Document Report ---
ED General - General Chief Complaint: Loose Stools Stated Complaint: DIARRHEA Time Seen by Provider: 01/18/19 09:15 Primary Care Provider: [facility] [Primary Care Provider] - Follow up as needed Mode of Arrival: Wheelchair TRAVEL OUTSIDE OF THE [place] IN LAST 30 DAYS: No - HPI Notes: Patient is a 78-year-old male who presents to the emergency department for evaluation of diarrhea. He was initially admitted to the hospital the beginning of December. He was diagnosed with C. difficile colitis as well as diverticulitis. He was discharged home on vancomycin. He has been taking it as prescribed. He states that he continues to have 4-6 episodes of diarrhea daily. He denies any abdominal pain. No melena or hematochezia. No fevers or chills. No nausea or vomiting. - Related Data Allergies/Adverse Reactions: ciprofloxacin [From Cipro] Allergy (Verified 01/18/19 08:43) enalapril maleate [From Vasotec] Allergy (Verified 01/18/19 08:43) niacin [From Niaspan] Allergy (Verified 01/18/19 08:43) Past Medical History - General Information source: Patient - Social History Smoking Status: Current Some Day Smoker Chew tobacco use (# tins/day): No Frequency of alcohol use: Social Drug Abuse: None Family History: CVA, Hypertension Patient has suicidal ideation: No Patient has homicidal ideation: No - Past Medical History Cardiac Medical History: Reports: Hx Atrial Fibrillation, Hx Congestive Heart Failure, Hx Coronary Artery Disease, Hx Heart Attack - 2006, Hx Hypercholesterolemia, Hx Hypertension, Hx Pulmonary Embolism - x3 last 2007, on Eliquis Pulmonary Medical History: Reports: Hx Asthma, Hx COPD, Hx Tuberculosis Endocrine Medical History: Reports: Hx Diabetes Mellitus Type 2 Renal/ Medical History: Denies: Hx Peritoneal Dialysis GI Medical History: Reports: Hx Diverticulitis Psychiatric Medical History: Reports: Hx Depression Infectious Medical History: Reports: Hx C-Diff Past Surgical History: Reports: Hx Abdominal Surgery - colon polyps, Hx Cardiac Surgery - CABGx1, Hx Cholecystectomy, Hx Coronary Artery Bypass Graft - 2006, Hx Open Heart Surgery, Hx Rectal Surgery - colon polyps, Hx Urinary Tract Surgery - Immunizations Hx Diphtheria, Pertussis, Tetanus Vaccination: Yes Hx Pneumococcal Vaccination: 07/17/09 Review of Systems - Review of Systems Constitutional: No symptoms reported EENT: No symptoms reported Cardiovascular: No symptoms reported Respiratory: No symptoms reported Gastrointestinal: See HPI Genitourinary: No symptoms reported Male Genitourinary: No symptoms reported Musculoskeletal: No symptoms reported Skin: No symptoms reported Neurological/Psychological: No symptoms reported Physical Exam - Vital signs Vitals: Temp Pulse Resp BP Pulse Ox 98.4 F 71 20 119/75 94 01/18/19 08:53 01/18/19 08:53 01/18/19 08:53 01/18/19 08:53 01/18/19 08:53 - Notes Notes: Vital signs reviewed, please refer to chart. Head is normocephalic, atraumatic. Pupils equal round, reactive to light. Neck is supple without meningismus. Heart is irregularly irregular. Lungs are clear to auscultation bilaterally. A bdomen is soft, nontender, normoactive bowel sounds throughout. Extremities without cyanosis, clubbing. Posterior calves are nontender. Peripheral pulses are equal. Skin is warm and dry. Patient is awake, alert, neurological exam is nonfocal. Course - Re-evaluation Re-evalutation: 01/18/19 14:28 Patient presents emergency department for evaluation of diarrhea. He continues to have diarrhea despite oral antibiotics. Laboratory investigations here were largely unremarkable. No leukocytosis. No significant dehydration. Despite his multiple episodes of diarrhea daily, the patient was not able to offer a stool sample here. I will then send him home with another specimen cup, orders to follow-up for another C. difficile test. [facility] He is to return to the ED with worsening or new concerning symptoms of any sort. - Vital Signs Vital signs: Temp Pulse Resp BP Pulse Ox 98.4 F 71 20 119/75 94 01/18/19 08:53 01/18/19 08:53 01/18/19 08:53 01/18/19 08:53 01/18/19 08:53 - Laboratory Result Diagrams: 01/18/19 09:31 01/18/19 09:31 Laboratory results interpreted by me: 01/18/19 01/18/19 09:31 09:31 RBC 4.20 L Hgb 13.3 L RDW 14.7 H Eosinophils % 7.4 H Basophils % 2.4 H Carbon Dioxide 32 H ALT 18 L Discharge - Discharge Clinical Impression: C. difficile colitis Condition: Stable Disposition: HOME, SELF-CARE Instructions: C. (Clostridium) Difficile Infection ([facility]) Additional Instructions: Continue your antibiotics as prescribed. If you are able to provide a stool sample, bring it to the outpatient lab, along with lab order, for further ev aluation. [facility], continue to seek out referral to GI. If you develop fevers, vomiting, increased pain, or any other new or concerning symptoms, return immediately to the emergency department for evaluation. Forms: Follow-Up Laboratory Testing Referrals: [facility] [Primary [facility]] - Follow up as needed
[2019-01-18 14:46] VITALS: BP 137/73
== END 2019-01-18 14:46 | disposition home or self-care (01) ==
LOC: ER 08:42
DX: A04.72 Enterocolitis due to Clostridium difficile, not specified as recurrent (principal); K57.92 Diverticulitis of intestine, part unspecified, without perforation or abscess without bleeding; Z79.2 Long term (current) use of antibiotics; F17.200 Nicotine dependence, unspecified, uncomplicated; I25.10 Atherosclerotic heart disease of native coronary artery without angina pectoris; I10 Essential (primary) hypertension; J44.9 Chronic obstructive pulmonary disease, unspecified; E11.9 Type 2 diabetes mellitus without complications; Z88.1 Allergy status to other antibiotic agents; Z88.8 Allergy status to other drugs, medicaments and biological substances
CPT/HCPCS: 99284; 96360; 36415; 83690; 85025; 80053; 81001; J7040

== ENCOUNTER → 2019-01-18 | Outpatient (CLI) | payer OTHER, MEDICARE | LOC: LAB 15:32 | PROVIDERS: ATTEND Emergency Medicine | DX: A04.72 Enterocolitis due to Clostridium difficile, not specified as recurrent (principal); R19.7 Diarrhea, unspecified | CPT/HCPCS: 87493 ==

== ENCOUNTER 2019-02-05 14:09 | Observation (INO) | payer OTHER, MEDICARE ==
--- NOTE | 2019-02-05 14:43 | ER Document Report ---
ED Medical Screen (RME) - General Chief Complaint: Irregular Pulse Stated Complaint: LOW HEART RATE Time Seen by Provider: 02/05/19 14:30 Primary Care Provider: BEN HAJI DO [Primary Care Provider] - Follow up as needed TRAVEL OUTSIDE OF THE [place] IN LAST 30 DAYS: No - HPI Notes: 02/05/19 14:38 78-year-old male to the emergency department with complaints of global weakness, near syncope, dizziness for the past month and [facility] sent him over to the emergency department today for your heart rate at 38. Patient denies any chest pain but does admit to shortness of breath and significant dizziness. In the last month he has been treated for C. difficile and diverticulitis. He continues to have diarrhea despite a 10-day course of vancomycin. He denies any fevers, chills. He has not had a formed bowel movement since he was diagnosed. His stool has not been recultured or recheck for C. difficile. He did not denies any blood in his stool. States that his symptoms get worse when he is up and walking around. Reports 3 falls over the past month due to extreme dizziness when he standing up. Denies any loss of consciousness or syncopal episode. Today in the emergency department his heart rate is measured at 72. I have performed a medical screening exam on this patient and determined that he needs further work-up to include labs, chest x-ray, stool and blood cultures. We will have him be seen by me inside provider as bed becomes available. Have placed a fall risk band on patient. We will continue to monitor patient closely. - Related Data Allergies/Adverse Reactions: ciprofloxacin [From Cipro] Allergy (Verified 02/05/19 14:10) enalapril maleate [From Vasotec] Allergy (Verified 02/05/19 14:10) niacin [From Niaspan] Allergy (Verified 02/05/19 14:10) Past Medical History - General Information source: Patient - Social History Chew tobacco use (# tins/day): No Frequency of alcohol use: Occasional Drug Abuse: None - Past Medical History Cardiac Medical History: Reports: Hx Atrial Fibrillation, Hx Congestive Heart Failure, Hx Coronary Artery Disease, Hx Heart Attack - 2006, Hx Hypercholesterolemia, Hx Hypertension, Hx Pulmonary Embolism - x3 last 2007, on Eliquis Pulmonary Medical History: Reports: Hx Asthma, Hx COPD, Hx Tuberculosis Endocrine Medical History: Reports: Hx Diabetes Mellitus Type 2 Renal/ Medical History: Denies: Hx Peritoneal Dialysis GI Medical History: Reports: Hx Diverticulitis Psychiatric Medical History: Reports: Hx Depression Infectious Medical History: Reports: Hx C-Diff Past Surgical History: Reports: Hx Abdominal Surgery - colon polyps, Hx Cardiac Surgery - CABGx1, Hx Cholecystectomy, Hx Coronary Artery Bypass Graft - 2007, Hx Open Heart Surgery, Hx Rectal Surgery - colon polyps, Hx Urinary Tract Surgery - Immunizations Hx Diphtheria, Pertussis, Tetanus Vaccination: Yes History of Influenza Vaccine for 04/2017 - 09/2017 Season: Refused Review of Systems - Review of Systems Constitutional: Weakness. denies: Chills, Fever EENT: No symptoms reported Cardiovascular: Dizziness, Lightheaded. denies: Chest pain, Palpitations Respiratory: Short of breath. denies: Hurts to breathe Gastrointestinal: Diarrhea. denies: Abdominal pain, Nausea, Vomiting Genitourinary: No symptoms reported Skin: No symptoms reported Neurological/Psychological: Weakness. denies: Speech impairment, Numbness, Tingling Physical Exam - Vital signs Vitals: Temp Pulse Resp BP Pulse Ox 98.0 F 72 19 139/76 H 94 02/05/19 14:23 02/05/19 14:02/05/19 14:02/05/19 14:23 02/05/19 14:23 - Cardiovascular Rhythm: Regular Heart sounds: Normal auscultation Murmur: No - Neurological Neuro grossly intact: Yes Cognition: Normal Orientation: AAOx4 [place] Coma Scale Eye Opening: Spontaneous [place] Coma Scale Verbal: Oriented [place] Coma Scale Motor: Obeys Commands [place] Coma Scale Total: 15 Speech: Normal Cranial nerves: Normal Motor strength normal: LUE, RUE, LLE, RLE Additional motor exam 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 No: Pronator drift Course - Vital Signs Vital signs: Temp Pulse Resp BP Pulse Ox 98.0 F 72 19 139/76 H 94 02/05/19 14:23 02/05/19 14:23 02/05/19 14:23 02/05/19 14:23 02/05/19 14:23 Doctor's Discharge - Discharge Referrals: BEN HAJI DO [Primary Care Provider] - Follow up as needed
[2019-02-05 16:13] LABS: ABSOLUTE BASOPHILS # (AUTO) 0.1 10^3/uL (0.0-0.2); ABSOLUTE EOSINOPHILS # (AUTO) 0.1 10^3/uL (0.0-0.6); ABSOLUTE LYMPHOCYTES (AUTO) 1.3 10^3/uL (0.5-4.7); ABSOLUTE MONOCYTES (AUTO) 0.5 10^3/uL (0.1-1.4); ABSOLUTE NEUT (AUTO) 1.7 10^3/uL (1.7-8.2); BASOPHILS % (AUTO) 1.8 % (0-2); EOSINOPHILS % (AUTO) 3.3 % (0-6); HEMATOCRIT 38.7 % (37.9-51.0); HEMOGLOBIN 12.5 g/dL (13.5-17.0); MEAN CORPUSCULAR HEMOGLOBIN 30.8 pg (27.0-33.4); MEAN CORPUSCULAR HGB CONC 32.4 g/dL (32.0-36.0); MEAN CORPUSCULAR VOLUME 95 fl (80-97); MONOCYTES % (AUTO) 14.6 % (3-13); PLATELET COUNT 121 10^3/uL (150-450); RED BLOOD COUNT 4.07 10^6/uL (4.35-5.55); RED CELL DISTRIBUTION WIDTH 15.3 % (11.5-14.0); SEGMENTED NEUTROPHILS % (AUTO) 45.3 % (42-78); TOTAL CELLS COUNTED % (AUTO) 100 %; WHITE BLOOD COUNT 3.7 10^3/uL (4.0-10.5)
[2019-02-05 16:27] LABS: ALANINE AMINOTRANSFERASE 19 U/L (21-72); ALBUMIN 3.8 g/dL (3.5-5.0); ALKALINE PHOSPHATASE 60 U/L (38-126); ANION GAP 10 (5-19); ASPARTATE AMINO TRANSFERASE 49 U/L (17-59); BILIRUBIN,DIRECT 0.2 mg/dL (0.0-0.4); BILIRUBIN,TOTAL 0.8 mg/dL (0.2-1.3); BLOOD UREA NITROGEN 17 mg/dL (7-20); CALCIUM 8.9 mg/dL (8.4-10.2); CARBON DIOXIDE 32 mmol/L (22-30); CHLORIDE 97 mmol/L (98-107); CREATINE KINASE 105 U/L (55-170); GLUCOSE 142 mg/dL (75-110); POTASSIUM 3.4 mmol/L (3.6-5.0); TOTAL PROTEIN 6.5 g/dL (6.3-8.2)
[2019-02-05 16:44] LABS: CREATINE KINASE MB 0.22 ng/mL (<4.55); TROPONIN I < 0.012 ng/mL
--- NOTE | 2019-02-05 17:08 | RADIOLOGY REPORT (SQ) ---
EXAM DESCRIPTION: CHEST SINGLE VIEW COMPLETED DATE/TIME: 02/05/2019 5:00 pm REASON FOR STUDY: SOB, near syncope COMPARISON: 12/23/2018 NUMBER OF VIEWS: One view. TECHNIQUE: Single frontal radiographic view of the chest acquired. LIMITATIONS: None. FINDINGS: LUNGS AND PLEURA: No opacities, masses or pneumothorax. No pleural effusion. MEDIASTINUM AND HILAR STRUCTURES: No masses. Contour normal. HEART AND VASCULAR STRUCTURES: Heart normal in size. Normal vasculature. BONES: No acute findings. HARDWARE: Sternotomy wires are in place. OTHER: No other significant finding. IMPRESSION: NO SIGNIFICANT RADIOGRAPHIC FINDING IN THE CHEST. TECHNICAL DOCUMENTATION: JOB ID: [id number] [email or web address]- All Rights Reserved Reading location - IP/workstation name: [email or web address]
--- NOTE | 2019-02-05 18:24 | ER Document Report ---
Entered by CASSIE CHERY SCRIBE 02/05/19 1529 Acting as scribe for:KATELYNN ESTRADA DO ED General - General Chief Complaint: Irregular Pulse Stated Complaint: LOW HEART RATE Time Seen by Provider: 02/05/19 14:30 Notes: Patient is a 78-year-old male with a history of C. difficile presenting to the emergency department complaining of abnormal heart rate. Patient states that he went to the CT today for a follow-up on his C. difficile as he is continuing to have 2-3 liquid bowel movements a day after he completed a 10-day course of vancomycin. Today when he stepped on the scale at the CT his heart rate was 38 and they verified this on a monitor as well and checked it manually, when this was verified to be significantly bradycardic and causing dizziness they sent him here. Patient states that he does experience fevers at night, he has had shortness of breath, and felt dizzy as if he was "on a [id number]". Patient states that that is exacerbated when he is standing, or walking. Patient states that his "legs gave out under me". Patient states that he was recently on a 10-day course of vancomycin. Patient denies having any nausea, vomiting, syncope, chest pain, abdominal pain. TRAVEL OUTSIDE OF THE [place] IN LAST 30 DAYS: No - Related Data Allergies/Adverse Reactions: ciprofloxacin [From Cipro] Allergy (Verified 02/05/19 14:10) enalapril maleate [From Vasotec] Allergy (Verified 02/05/19 14:10) niacin [From Niaspan] Allergy (Verified 02/05/19 14:10) Past Medical History - General Information source: Patient - Social History Smoking Status: Current Some Day Smoker Cigarette use (# per day): Yes Chew tobacco use (# tins/day): No Frequency of alcohol use: Occasional Drug Abuse: None Family History: CVA, Hypertension Patient has suicidal ideation: No Patient has homicidal ideation: No - Past Medical History Cardiac Medical History: Reports: Hx Atrial Fibrillation, Hx Congestive Heart Failure, Hx Coronary Artery Disease, Hx Heart Attack - 2006, Hx Hypercholesterolemia, Hx Hypertension, Hx Pulmonary Embolism - x3 last 2007, on Eliquis Pulmonary Medical History: Reports: Hx Asthma, Hx COPD, Hx Tuberculosis Endocrine Medical History: Reports: Hx Diabetes Mellitus Type 2 GI Medical History: Reports: Hx Diverticulitis Psychiatric Medical History: Reports: Hx Depression Infectious Medical History: Reports: Hx C-Diff Past Surgical History: Reports: Hx Abdominal Surgery - colon polyps, Hx Cardiac Surgery - CABGx1, Hx Cholecystectomy, Hx Coronary Artery Bypass Graft - 2007, Hx Open Heart Surgery, Hx Rectal Surgery - colon polyps, Hx Urinary Tract Surgery - Immunizations Hx Diphtheria, Pertussis, Tetanus Vaccination: Yes Hx Pneumococcal Vaccination: 07/17/09 Review of Systems - Review of Systems Constitutional: See HPI, Fever EENT: No symptoms reported Cardiovascular: See HPI, Dizziness. denies: Chest pain, Syncope Respiratory: See HPI Gastrointestinal: See HPI, Diarrhea. denies: Abdominal pain, Nausea, Vomiting Genitourinary: No symptoms reported Male Genitourinary: No symptoms reported Musculoskeletal: No symptoms reported Skin: No symptoms reported Hematologic/Lymphatic: No symptoms reported Neurological/Psychological: No symptoms reported -: Yes All other systems reviewed and negative Physical Exam - Vital signs Vitals: Temp Pulse Resp BP Pulse Ox 98.0 F 72 19 139/76 H 94 02/05/19 14:23 02/05/19 14:23 02/05/19 14:23 02/05/19 14:23 02/05/19 14:23 Interpretation: Normal - Notes Notes: PHYSICAL EXAM GENERAL: Alert, interacts well. No acute distress. HEAD: Normocephalic, atraumatic. EYES: Pupils equal, round, and reactive to light. Extraocular movements intact. ENT: Oral mucosa moist, tongue midline. NECK: Full range of motion. Supple. Trachea midline. LUNGS: Clear to auscultation bilaterally, no wheezes, rales, or rhonchi. No respiratory distress. HEART: 1/6 systolic ejection murmur. regular rate and rhythm. No gallops, or rubs. Occasional dropped beats. ABDOMEN: Soft, non-tender. Non-distended. Bowel sounds present in all 4 quadrants. No guarding, rigidity, or rebound. EXTREMITIES: Moves all 4 extremities spontaneously. No edema, radial and dorsalis pedis pulses 2/4 bilaterally. No cyanosis. NEUROLOGICAL: Alert and oriented x3. Normal speech. Biceps and patellar DTRs 2+ bilaterally. PSYCH: Normal affect, normal mood. SKIN: Warm, dry, normal turgor. No rashes or lesions noted. Course - Re-evaluation Re-evalutation: 02/05/19 18:21 CBC shows low white blood cell count of 3.7, mild anemia with hemoglobin 12.5, platelets slightly low at 121, CMP similarly has some minor abnormalities such as a slight low potassium 3.4, CO2 elevated at 32, nonfasting glucose is 142, lactic acid is normal, cardiac enzymes negative, chest x-ray shows no acute process. EKG is nonischemic but it is concerning for some possibly dropped QRSs, no definite [place] type I or type II block. I am concerned for dysrhythmia or possible sick sinus syndrome as the patient had a documented heart rate in the 30s at the CT however I am unable to see this here. Patient's heart rate has been quite variable but has not been less than approximately 50 while he is been here. No definite [place] type I or type II. I have discussed the patient with the hospitalist for observation overnight to watch for any symptomatic bradycardia or evidence of sick sinus syndrome that would require transfer for a pacemaker. Dr. Villarreal agrees to accept this patient to his service on the telemetry care unit for observation. Patient is agreeable to this plan as well. Currently there is no evidence of severe dehydration from C. difficile diarrhea, patient has had no further diarrhea here. We are still planning on collecting stool samples if he has a bowel movement. - Vital Signs Vital signs: Temp Pulse Resp BP Pulse Ox 98.5 F 64 19 143/76 H 91 L 02/05/19 19:01 02/05/19 15:57 02/05/19 19:01 02/05/19 19:01 02/05/19 19:01 - Laboratory Result Diagrams: 02/05/19 15:45 02/05/19 15:45 Laboratory results interpreted by me: 02/05/19 02/05/19 15:45 15:45 WBC 3.7 L RBC 4.07 L Hgb 12.5 L RDW 15.3 H Plt Count 121 L Monocytes % 14.6 H Potassium 3.4 L Chloride 97 L Carbon Dioxide 32 H Glucose 142 H ALT 19 L - EKG Interpretation by Me Additional EKG results interpreted by me: 02/05/19 18:23 EKG shows sinus rhythm at a rate of 78, left axis deviation, interventricular c onduction delay, no ST segment elevations or depressions, there are several PVCs, possibly 1 PAC per my interpretation. Discharge - Discharge Clinical Impression: Symptomatic bradycardia, Dizziness Type 2 diabetes mellitus Qualifiers: Diabetes mellitus buttermaker continuous churn insulin use: with retirement use Diabetes mellitus complication status: with hyperglycemia Qualified Code(s): E11.65 - Type 2 diabetes mellitus with hyperglycemia Condition: Fair Disposition: ADMITTED OBSERVATION Admitting Provider: Phil (Hospitalist) Unit Admitted: Telemetry I personally performed the services described in the documentation, reviewed and edited the documentation which was dictated to the scribe in my presence, and it accurately records my words and actions.
--- NOTE | 2019-02-05 19:15 | PDOC H&P ---
History of Present Illness Admission Date/PCP: 02/05/19 18:48 BEN HAJI DO History of Present Illness: ISAURO CARREON is a 78 year old male with a history of coronary artery disease status post CABG approximately 15 years ago who was in his usual state of health when he went to the [place] clinic for a routine follow-up. He said he had a case of C. difficile diarrhea but he had been on antibiotics for a couple of weeks and it cleared up a couple weeks ago. He came in and whenever he stood up to get some of his vital signs apparently his heart rate dropped. He said he did not g et dizzy or feel like he was going to pass out, but perhaps a little bit woozy. He said he has not had a known history of any sort of arrhythmia. He said that they have been "messing with my metoprolol" but he is not sure how the dosage was adjusted or when it was adjusted. He denies any changes in any of his other medications. He does not take any [id number] herbal supplements. He has not had any chest pain or palpitations. He denies any shortness of breath or decreased activity tolerance. Apparently his systolic pressure laying down was in the 120s 130s, and when they did orthostatics on him he dropped to a systolic of 90. It is not known if he had any changes in his heart rate at this time. His EKG shows frequent PVCs, and there may be some issues with his MN interval as well, but it was not consistent and he would also have long runs of normal sinus rhythm on telemetry. He is being admitted for evaluation of his bradycardia. Past Medical History Cardiac Medical History: Reports: Atrial Fibrillation, Congestive Heart Failure, Coronary Artery Disease, Myocardial Infarction - 2006, Hyperlipidema, Hypertension, Pulmonary Embolism - x3 last 2007, on Eliquis Pulmonary Medical History: Reports: Asthma, Chronic Obstructive Pulmonary Disease (COPD), Tuberculosis Endocrine Medical History: Reports: Diabetes Mellitus Type 2 GI Medical History: Reports: Diverticulitis Psychiatric Medical History: Reports: Depression Infectious Medical History: Reports: Clostridium Difficile Past Surgical History Past Surgical History: Reports: Cholecystectomy, Coronary Artery Bypass Graft - 2006 Social History Smoking Status: Current Some Day Smoker Frequency of Alcohol Use: Heavy - Denies history of withdrawal, seizure, tremor with abstinence Hx Recreational Drug Use: No Hx Prescription Drug Abuse: No Family History Family History: Hypertension Parental Family History Reviewed: Yes - CVA Children Family History Reviewed: Yes - Hypertension Sibling(s) Family History Reviewed.: No Medication/Allergy Home Medications: Albuterol Sulfate [Proair HFA Inhalation Aerosol 8.5 gm MDI] 1 puff IH Q4HP PRN 12/24/18 Amlodipine Besylate [Norvasc 5 mg Tablet] 5 mg PO DAILY 12/24/18 Apixaban [Eliquis 5 mg Tablet] 5 mg PO Q12 12/24/18 Budesonide/Formoterol Fumarate [Symbicort HFA 80-4.5 mcg Inhaler 6.9 gm] 2 puff IH Q12 12/24/18 Ergocalciferol (Vitamin D2) [Drisdol 50,000 unit (1.25MG) Capsule] 50,000 unit PO MO@0800 12/24/18 Furosemide [Lasix 40 mg Tablet] 40 mg PO BID 12/24/18 Isosorbide Mononitrate [Imdur 60 mg Tablet.er] 60 mg PO QAM 12/24/18 Metoprolol Tartrate [Lopressor 50 mg Tablet] 50 mg PO Q12 12/24/18 Paroxetine HCl [Paxil] 30 mg PO DAILY 12/24/18 Calcium Carbonate [Calcium] 1,000 mg PO DAILY 5 Days #5 tablet 12/27/18 Magnesium Oxide [Mag-Ox 400 mg Tablet] 800 mg PO BID 4 Days #8 tablet 12/27/18 Metronidazole [Flagyl 500 mg Tablet] 500 mg PO TID 10 Days #30 tablet 12/27/18 Vancomycin HCl 125 mg PO QID 10 Days #20 vial 01/08/19 Vancomycin HCl [Firvanq] 125 mg PO QID 10 Days #100 ml 01/08/19 Allergies/Adverse Reactions: ciprofloxacin [From Cipro] Allergy (Verified 02/05/19 14:10) enalapril maleate [From Vasotec] Allergy (Verified 02/05/19 14:10) niacin [From Niaspan] Allergy (Verified 02/05/19 14:10) Review of Systems All systems: reviewed and no additional remarkable complaints except as stated - All systems were reviewed and were negative except as noted above in the HPI Physical Exam Vital Signs: Temp Pulse Resp BP Pulse Ox 98.0 F 64 19 128/61 H 94 02/05/19 14:23 07/23/19 15:57 02/05/19 14:23 02/05/19 15:57 02/05/19 14:23 Intake & Output 02/04/19 02/05/19 02/06/19 06:59 06:59 06:59 Weight 92 kg General appearance: PRESENT: no acute distress, cooperative Head exam: PRESENT: atraumatic, normocephalic Eye exam: PRESENT: EOMI, PERRLA. ABSENT: conjunctival injection, nystagmus, scleral icterus Ear exam: PRESENT: normal external ear exam Mouth exam: PRESENT: moist, neck supple Throat exam: ABSENT: post pharyngeal erythema Neck exam: PRESENT: full ROM. ABSENT: carotid bruit, JVD, lymphadenopathy, meningismus, tenderness, thyromegaly Respiratory exam: PRESENT: clear to auscultation claire, symmetrical, unlabored. ABSENT: accessory muscle use, chest wall tenderness, crackles, prolonged expiratory phas, rales, rhonchi, tachypnea, wheezes Cardiovascular exam: PRESENT: RRR - With occasional periods of early beats followed by short pause, +S1, +S2 Pulses: PRESENT: normal carotid pulses Vascular exam: PRESENT: normal capillary refill GI/Abdominal exam: PRESENT: normal bowel sounds, soft. ABSENT: distended, guarding, rebound, tenderness Extremities exam: ABSENT: clubbing, pedal edema Musculoskeletal exam: PRESENT: ambulatory - Walks with a cane, normal inspection. ABSENT: deformity Neurological exam: PRESENT: alert, awake, oriented to person, oriented to place, CN II-XII grossly intact. ABSENT: oriented to situation - Was not able to tell me very well the story of how he wound up in the hospital, he only knows that [facility], motor sensory deficit Psychiatric exam: PRESENT: appropriate affect, normal mood Skin exam: PRESENT: dry, warm Results Laboratory Results: 02/05/19 15:45 02/05/19 15:45 02/05/19 02/05/19 02/05/19 15:45 15:45 15:45 WBC 3.7 L RBC 4.07 L Hgb 12.5 L Hct 38.7 MCV 95 MCH 30.8 MCHC 32.4 RDW 15.3 H Plt Count 121 L Seg Neutrophils % 45.3 Lymphocytes % 35.0 Monocytes % 14.6 H Eosinophils % 3.3 Basophils % 1.8 Absolute Neutrophils 1.7 Absolute Lymphocytes 1.3 Absolute Monocytes 0.5 Absolute Eosinophils 0.1 Absolute Basophils 0.1 Sodium 139.3 Potassium 3.4 L Chloride 97 L Carbon Dioxide 32 H Anion Gap 10 BUN 17 Creatinine 1.10 Est GFR ( Amer) > 60 Est GFR (Non-Af Amer) > 60 Glucose 142 H Lactic Acid 1.8 Calcium 8.9 Magnesium 1.6 Total Bilirubin 0.8 AST 49 ALT 19 L Alkaline Phosphatase 60 Total Protein 6.5 Albumin 3.8 02/05/19 02/05/19 15:45 15:47 Creatine Kinase 105 CK-MB (CK-2) 0.22 Troponin I < 0.012 Impressions: Chest X-Ray 02/05/19 15:54 IMPRESSION: NO SIGNIFICANT RADIOGRAPHIC FINDING IN THE CHEST. Assessment and Plan - Diagnosis (1) Bradycardia Is this a current diagnosis for this admission?: Yes Plan: We will plan to hold his metoprolol and watch him on telemetry overnight. Likely have cardiology come see him tomorrow in the morning. (2) Coronary artery disease Qualifiers: Coronary Disease-Associated Artery/Lesion type: unspecified vessel or lesion type [place] vs. transplanted heart: [place] heart Associated angina: without angina Qualified Code(s): I25.10 - Atherosclerotic heart disease of [place] coronary artery without angina pectoris Is this a current diagnosis for this admission?: Yes Plan: We will continue his home medications with the exception of his metoprolol as previously noted. (3) History of pulmonary embolus (PE) Is this a current diagnosis for this admission?: Yes Plan: Continue Eliquis for prophylaxis (4) Hypertension Qualifiers: Hypertension type: essential hypertension Qualified Code(s): I10 - Essential (primary) hypertension Is this a current diagnosis for this admission?: Yes Plan: We will hold his Lasix tonight and resume it again in the morning, along with his other medications except for metoprolol. - Time Time Spent with patient: 35 or more minutes - Inpatient Certification Based on my medical assessment, after consideration of the patient's comorbidities, presenting symptoms, or acuity I expect that the services needed warrant INPATIENT care.: Yes I certify that my determination is in accordance with my understanding of Medicare's requirements for reasonable and necessary INPATIENT services [42 CFR 412.3e].: Yes Medical Necessity: Need Close Monitoring Due to Risk of Patient Decompensation, Need For Continuous Telemetry Monitoring, Risk of Diagnosis Which Will Require Inpatient Eval/Care/Monitoring
[2019-02-05 22:16] LABS: APPEARANCE,URINE CLEAR; BILIRUBIN,URINE NEGATIVE (NEGATIVE); COLOR,URINE YELLOW; GLUCOSE, URINE NEGATIVE (NEGATIVE); KETONES,URINE TRACE mg/dL (NEGATIVE); LEUKOCYTE ESTERASE,URINE NEGATIVE (NEGATIVE); NITRITE,URINE NEGATIVE (NEGATIVE); PROTEIN,URINE NEGATIVE (NEGATIVE); URINE SPECIFIC GRAVITY 1.016; UROBILINOGEN,URINE NEGATIVE mg/dL (<2.0)
--- NOTE | 2019-02-05 23:16 | EKG REPORT ---
SEVERITY:- ABNORMAL ECG - SINUS RHYTHM VENTRICULAR BIGEMINY LAD, CONSIDER LEFT ANTERIOR FASCICULAR BLOCK : Confirmed by: Rabia Bajwa 05-Feb-2019 23:15:37
--- NOTE | 2019-02-05 23:16 | EKG REPORT ---
SEVERITY:- ABNORMAL ECG - SINUS RHYTHM PROBABLE LEFT ATRIAL ABNORMALITY LAD, CONSIDER LAFB OR INFERIOR INFARCT NONSPECIFIC T ABNORMALITIES, ANT-LAT LEADS : Confirmed by: Rabia Bajwa 05-Feb-2019 23:16:05
[2019-02-06] MEDS ORDERED: VANCOMYCIN HCL INJ 500 MG VIAL ONE (00:32)
[2019-02-06] MEDS: VANCOMYCIN HCL INJ 500 MG VIAL PO SCH ×2 (00:45→06:14)
[2019-02-06 06:58] LABS: HEMATOCRIT 38.2 % (37.9-51.0); HEMOGLOBIN 12.8 g/dL (13.5-17.0); MEAN CORPUSCULAR HEMOGLOBIN 31.8 pg (27.0-33.4); MEAN CORPUSCULAR HGB CONC 33.5 g/dL (32.0-36.0); MEAN CORPUSCULAR VOLUME 95 fl (80-97); PLATELET COUNT 110 10^3/uL (150-450); RED BLOOD COUNT 4.01 10^6/uL (4.35-5.55); RED CELL DISTRIBUTION WIDTH 15.3 % (11.5-14.0); WHITE BLOOD COUNT 4.6 10^3/uL (4.0-10.5)
[2019-02-06 07:25] LABS: ANION GAP 8 (5-19); BLOOD UREA NITROGEN 15 mg/dL (7-20); CARBON DIOXIDE 33 mmol/L (22-30); CHLORIDE 99 mmol/L (98-107); GLUCOSE 104 mg/dL (75-110); POTASSIUM 3.3 mmol/L (3.6-5.0)
[2019-02-06] MEDS ORDERED: POTASSIUM CHLORIDE 10 MEQ CAPSULE.ER PO ONE (08:30)
[2019-02-06] MEDS: MAGNESIUM SULFATE/D5W 1 GM/100 ML RTUPB IV SCH ×2 (09:51→11:38)
[2019-02-06] MEDS: PAROXETINE HCL 20 MG TABLET PO SCH (09:52)
[2019-02-06] MEDS: APIXABAN 5 MG TABLET PO SCH ×2 (09:52→21:22)
[2019-02-06] MEDS: ATORVASTATIN CALCIUM 80 MG TABLET PO SCH (09:52)
[2019-02-06] MEDS ORDERED: (PENDING PHARMACY ID) (Paroxetine Hcl [Paxil] 30 MG) PO SCH (10:00)
--- NOTE | 2019-02-06 18:47 | PDOC PROGRESS REPORT ---
Subjective Progress Note for:: 02/06/19 Subjective:: No adverse events overnight. No new complaints. Vital signs been stable. Heart rate has come up and is been in the 70s most of the day. He is not had any feelings of palpitations or chest pain. Eating and drinking without difficulty. His been getting up and going to the bathroom without any trouble. Reason For Visit: BRADYCARDIA Physical Exam Vital Signs: Temp Pulse Resp BP Pulse Ox 98.4 F 73 17 149/84 H 96 02/05/19 22:06 02/06/19 14:00 02/05/19 22:06 02/05/19 22:06 02/05/19 22:06 Intake & Output 02/05/19 02/06/19 02/07/19 06:59 06:59 06:59 Intake Total 820 Output Total 200 Balance 620 Weight 91 kg General appearance: PRESENT: no acute distress, cooperative Respiratory exam: PRESENT: clear to auscultation claire, symmetrical, unlabored. ABSENT: accessory muscle use, chest wall tenderness, crackles, prolonged expiratory phas, rhonchi, tachypnea, wheezes Cardiovascular exam: PRESENT: RRR, +S1, +S2 Pulses: PRESENT: normal carotid pulses Vascular exam: PRESENT: normal capillary refill GI/Abdominal exam: PRESENT: normal bowel sounds, soft. ABSENT: distended, guarding, rebound, tenderness Extremities exam: ABSENT: clubbing, pedal edema Musculoskeletal exam: PRESENT: normal inspection. ABSENT: deformity Neurological exam: PRESENT: alert, awake, oriented to person, oriented to place, oriented to situation Psychiatric exam: PRESENT: appropriate affect, normal mood Skin exam: PRESENT: dry, warm Results Laboratory Results: 02/06/19 06:30 02/06/19 06:30 02/05/19 02/06/19 02/06/19 21:34 06:30 06:30 WBC 4.6 RBC 4.01 L Hgb 12.8 L Hct 38.2 MCV 95 MCH 31.8 MCHC 33.5 RDW 15.3 H Plt Count 110 L Sodium 139.6 Potassium 3.3 L Chloride 99 Carbon Dioxide 33 H Anion Gap 8 BUN 15 Creatinine 0.88 Est GFR ( Amer) > 60 Est GFR (Non-Af Amer) > 60 Glucose 104 Calcium 9.0 Magnesium 1.4 L Urine Color YELLOW Urine Appearance CLEAR Urine pH 6.0 Ur Specific [place] 1.016 Urine Protein NEGATIVE Urine Glucose (UA) NEGATIVE Urine Ketones TRACE H Urine Blood NEGATIVE Urine Nitrite NEGATIVE Ur Leukocyte Esterase NEGATIVE Urine WBC (Auto) 2 Urine RBC (Auto) 1 02/05/19 02/05/19 15:45 15:47 Creatine Kinase 105 CK-MB (CK-2) 0.22 Troponin I < 0.012 Impressions: Chest X-Ray 02/05/19 15:54 IMPRESSION: NO SIGNIFICANT RADIOGRAPHIC FINDING IN THE CHEST. Assessment and Plan - Diagnosis (1) Bradycardia Is this a current diagnosis for this admission?: Yes Plan: His EKG this morning shows a first-degree block with a [place] interval of 212 and some PVCs but otherwise and I sinus rhythm without any evidence of an advanced heart block. We will continue to hold his beta-ria. Were trying to arrange for him to get outpatient ambulatory cardiac monitoring. (2) Coronary artery disease Qualifiers: Coronary Disease-Associated Artery/Lesion type: unspecified vessel or lesion type [place] vs. transplanted heart: [place] heart Associated angina: without angina Qualified Code(s): I25.10 - Atherosclerotic heart disease of [place] coronary artery without angina pectoris Is this a current diagnosis for this admission?: Yes Plan: We will continue his home medications with the exception of his metoprolol as previously noted. (3) History of pulmonary embolus (PE) Is this a current diagnosis for this admission?: Yes Plan: Continue Eliquis for prophylaxis (4) Hypertension Qualifiers: Hypertension type: essential hypertension Qualified Code(s): I10 - Essential (primary) hypertension Is this a current diagnosis for this admission?: Yes Plan: We will hold his Lasix tonight and resume it again in the morning, along with his other medications except for metoprolol. - Time Time Spent with patient: 15-24 minutes
--- NOTE | 2019-02-06 23:59 | EKG REPORT ---
SEVERITY:- ABNORMAL ECG - SINUS RHYTHM MULTIFORM VENTRICULAR PREMATURE COMPLEXES FIRST DEGREE AV BLOCK LAD, CONSIDER LEFT ANTERIOR FASCICULAR BLOCK : Confirmed by: Rabia Bajwa 06-Feb-2019 23:59:15
[2019-02-07] MEDS: APIXABAN 5 MG TABLET PO SCH (09:08)
[2019-02-07] MEDS: PAROXETINE HCL 20 MG TABLET PO SCH (09:08)
[2019-02-07] MEDS: ATORVASTATIN CALCIUM 80 MG TABLET PO SCH (09:09)
[2019-02-07] MEDS: MAGNESIUM SULFATE 1 GM/D5W 100 ML IV SCH ×2 (09:47→11:05)
[2019-02-07] MEDS ORDERED: POTASSIUM CHLORIDE 10 MEQ CAPSULE.ER PO ONE (10:00)
[2019-02-07 14:55] VITALS: BP 149/84
--- NOTE | 2019-02-07 16:45 | PDOC DISCHARGE SUMMARY ---
General - Admit/Disc Date/PCP Admission Date/Primary Care Provider: 02/05/19 18:48 BEN HAJI, Discharge Date: 02/07/19 - Discharge Diagnosis (1) Bradycardia Is this a current diagnosis for this admission?: Yes Summary: This was from his metoprolol. We have held his metoprolol and his rate has been in the 60s and 70s without any agents needed for rate control (2) Coronary artery disease Is this a current diagnosis for this admission?: Yes Summary: Continues on his home medications. Metoprolol had to be stopped as noted above. (3) History of pulmonary embolus (PE) Is this a current diagnosis for this admission?: Yes Summary: He will continue Eliquis (4) Hypertension Is this a current diagnosis for this admission?: Yes Summary: Well-controlled on his home medications - Additional Information Resuscitation Status: Full Code Discharge Diet: Cardiac Discharge Activity: Slowly Increase Activity Home Medications: Amlodipine Besylate [Norvasc 5 mg Tablet] 5 mg PO DAILY 02/05/19 Apixaban [Eliquis 5 mg Tablet] 5 mg PO Q12 02/05/19 Atorvastatin Calcium [Lipitor 80 mg Tablet] 80 mg PO DAILY 02/05/19 Paroxetine HCl [Paxil] 30 mg PO DAILY 02/05/19 History of Present Illness History of Present Illness: ISAURO CARREON is a 78 year old male with a history of coronary artery disease status post CABG approximately 15 years ago who was in his usual state of health when he went to the [place] clinic for a routine follow-up. He said he had a case of C. difficile diarrhea but he had been on antibiotics for a couple of weeks and it cleared up a couple weeks ago. He came in and whenever he stood up to get some of his vital signs apparently his heart rate dropped. He said he did not get dizzy or feel like he was going to pass out, but perhaps a little bit woozy. He said he has not had a known history of any sort of arrhythmia. He said that they have been "messing with my metoprolol" but he is not sure how the dosage was adjusted or when it was adjusted. He denies any changes in any of his other medications. He does not take any [id number] herbal supplements. He has not had any chest pain or palpitations. He denies any shortness of breath or decreased activity tolerance. Apparently his systolic pressure laying down was in the 120s 130s, and when they did orthostatics on him he dropped to a systolic of 90. It is not known if he had any changes in his heart rate at this time. His EKG shows frequent PVCs, and there may be some issues with his [place] interval as well, but it was not consistent and he would also have long runs of normal sinus rhythm on telemetry. He is being admitted for evaluation of his bradycardia. Hospital Course Hospital Course: We took him off of his metoprolol and his heart rate began to come up after some time. He balanced out with heart rate typically in the 60s and 70s. He was in a sinus rhythm with a first-degree AV block and frequent PVCs. He did not show any evidence on EKG or telemetry of advanced heart block. Because his rate was in the 60s and 70s without any rate controlling agents, we elected not to put him on anything for the time being. We have set up for him to get a Holter monitor as an outpatient. His labs and examination were reassuring and he was discharged in good condition. Physical Exam Vital Signs: Temp Pulse Resp BP Pulse Ox 98.4 F 87 19 149/84 H 97 02/07/19 14:53 02/07/19 14:53 02/07/19 14:53 02/07/19 14:53 02/07/19 14:53 Intake & Output 02/06/19 02/07/19 02/08/19 06:59 06:59 06:59 Intake Total 1750 1010 Output Total 1075 200 Balance 675 810 Weight 91 kg 91 kg General appearance: PRESENT: no acute distress, cooperative Respiratory exam: PRESENT: clear to auscultation claire, symmetrical, unlabored. ABSENT: accessory muscle use, chest wall tenderness, crackles, prolonged expiratory phas, rhonchi, tachypnea, wheezes Cardiovascular exam: PRESENT: RRR, +S1, +S2 Pulses: PRESENT: normal carotid pulses Vascular exam: PRESENT: normal capillary refill GI/Abdominal exam: PRESENT: normal bowel sounds, soft. ABSENT: distended, guarding, rebound, tenderness Extremities exam: ABSENT: clubbing, pedal edema Musculoskeletal exam: PRESENT: normal inspection. ABSENT: deformity Neurological exam: PRESENT: alert, awake, oriented to person, oriented to place, oriented to situation Psychiatric exam: PRESENT: appropriate affect, normal mood Skin exam: PRESENT: dry, warm Results Laboratory Results: 02/06/19 06:30 02/06/19 06:30 02/05/19 02/05/19 15:45 15:47 Creatine Kinase 105 CK-MB (CK-2) 0.22 Troponin I < 0.012 Impressions: Chest X-Ray 02/05/19 15:54 IMPRESSION: NO SIGNIFICANT RADIOGRAPHIC FINDING IN THE CHEST. Qualifiers - * PATIENT BEING DISCHARGED WITH ANY OF THE FOLLOWING DIAGNOSIS: No Acute Heart Failure - Is this a Heart Failure Patient?: No Plan Time Spent: Greater than 30 Minutes
[2019-02-08] MEDS ORDERED: ATORVASTATIN CALCIUM 80 MG TABLET PO SCH (22:00)
== END 2019-02-07 15:08 | disposition home or self-care (01) ==
LOC: ER 14:09 → OBSVTOIN 18:48 → EH 18:48 → INTOOBSV 18:48 → 4S 21:55
PROVIDERS: ADMIT Internal Medicine; ATTEND Internal Medicine
DX: R00.1 Bradycardia, unspecified (principal); I25.10 Atherosclerotic heart disease of native coronary artery without angina pectoris; I44.0 Atrioventricular block, first degree; I11.0 Hypertensive heart disease with heart failure; I50.9 Heart failure, unspecified; I48.91 Unspecified atrial fibrillation; F17.210 Nicotine dependence, cigarettes, uncomplicated; R06.02 Shortness of breath; R50.9 Fever, unspecified; R19.7 Diarrhea, unspecified; D64.9 Anemia, unspecified; E11.65 Type 2 diabetes mellitus with hyperglycemia; J44.9 Chronic obstructive pulmonary disease, unspecified; I25.2 Old myocardial infarction; Z79.899 Other long term (current) drug therapy; Z86.711 Personal history of pulmonary embolism; Z79.02 Long term (current) use of antithrombotics/antiplatelets; Z95.1 Presence of aortocoronary bypass graft; Z86.19 Personal history of other infectious and parasitic diseases; Z90.49 Acquired absence of other specified parts of digestive tract; Z91.81 History of falling; Z86.11 Personal history of tuberculosis; Z86.010 Personal history of colon polyps
CPT/HCPCS: 93005 ×2; 99285; 36415 ×2; 87040; 87045; 87205; 87209; 82553; 82550; 83735 ×2; 87177; 85025; 85027; 80048; 80053; 81001; 84484; 87493; 83605; 71045; 93010 ×2; G0378 ×4; J3475 ×2; J3370

== ENCOUNTER 2019-02-20 16:06 | Observation (INO) | payer OTHER, MEDICARE ==
--- NOTE | 2019-02-20 16:58 | ER Document Report ---
ED Medical Screen (RME) - General Chief Complaint: Chest Pain Stated Complaint: BLOOD PRESSURE ISSUE Time Seen by Provider: 02/20/19 16:54 Primary Care Provider: BEN HAJI DO [Primary Care Provider] - Follow up as needed Mode of Arrival: Wheelchair Information source: Patient Notes: Patient presents to the emergency department with complaints of feeling dizzy weak short of breath started this morning.. With a report of high blood pressure and CAD.. Denied chest pain. Denies fever nausea vomiting. Reports he has been really sweaty. Patient does have an irregular heartbeat. History of PA and stents with also a filter placed. Patient is taking Eliquis. Dictation of this chart was performed using voice recognition software; therefore, there may be some unintended grammatical errors. I have greeted and performed a rapid initial assessment of this patient. A comprehensive ED assessment and evaluation of the patient, analysis of test results and completion of the medical decision making process will be conducted by additional ED providers. TRAVEL OUTSIDE OF THE [place] IN LAST 30 DAYS: No - HPI Onset: This morning Onset/Duration: Sudden Quality of pain: No pain - Related Data Allergies/Adverse Reactions: ciprofloxacin [From Cipro] Allergy (Verified 02/20/19 16:10) enalapril maleate [From Vasotec] Allergy (Verified 02/20/19 16:10) niacin [From Niaspan] Allergy (Verified 02/20/19 16:10) Past Medical History - Social History Chew tobacco use (# tins/day): No Frequency of alcohol use: Social - Past Medical History Cardiac Medical History: Reports: Hx Atrial Fibrillation, Hx Congestive Heart Failure, Hx Coronary Artery Disease, Hx Heart Attack - 2006, Hx Hypercholesterolemia, Hx Hypertension, Hx Pulmonary Embolism - x3 last 2007, on Eliquis Pulmonary Medical History: Reports: Hx Asthma, Hx COPD, Hx Tuberculosis Endocrine Medical History: Reports: Hx Diabetes Mellitus Type 2 Renal/ Medical History: Denies: Hx Peritoneal Dialysis GI Medical History: Reports: Hx Diverticulitis Psychiatric Medical History: Reports: Hx Depression Infectious Medical History: Reports: Hx C-Diff Past Surgical History: Reports: Hx Abdominal Surgery - colon polyps, Hx Cardiac Surgery - CABGx1, Hx Cholecystectomy, Hx Coronary Artery Bypass Graft - 2006, Hx Open Heart Surgery, Hx Rectal Surgery - colon polyps, Hx Urinary Tract Surgery - Immunizations Hx Diphtheria, Pertussis, Tetanus Vaccination: Yes History of Influenza Vaccine for 04/2017 - 09/2017 Season: Refused Physical Exam - Vital signs Vitals: Temp Pulse Resp BP Pulse Ox 98.2 F 54 L 16 153/72 H 96 02/20/19 16:28 02/20/19 16:28 02/20/19 16:28 02/20/19 16:28 02/20/19 16:28 Course - Vital Signs Vital signs: Temp Pulse Resp BP Pulse Ox 98.2 F 54 L 16 153/72 H 96 02/20/19 16:28 02/20/19 16:28 02/20/19 16:28 02/20/19 16:28 02/20/19 16:28 Doctor's Discharge - Discharge Referrals: BEN HAJI DO [Primary Care Provider] - Follow up as needed
[2019-02-20] MEDS ORDERED: ASPIRIN 81 MG TABLET, CHEWABLE PO ONE (17:15)
--- NOTE | 2019-02-20 17:19 | ER Document Report ---
ED Cardiac - General Chief Complaint: Chest Pain Stated Complaint: BLOOD PRESSURE ISSUE Time Seen by Provider: 02/20/19 16:54 Primary Care Provider: BEN HAJI DO [ACTIVE STAFF] - Follow up as needed Mode of Arrival: Wheelchair Information source: Patient TRAVEL OUTSIDE OF THE [place] IN LAST 30 DAYS: No - HPI Notes: Patient complains of shortness of breath, palpitations, dizziness, weakness, and chest discomfort probably 1 week. He states it has progressively been getting worse. It is worse with exertion and better with rest. It has been intermittent. It is moderate in severity. He states he has not had similar sy mptoms in the past. No cough cold or congestion. No vomiting or diarrhea. The chest discomfort does not radiate. - Related Data Allergies/Adverse Reactions: ciprofloxacin [From Cipro] Allergy (Verified 02/20/19 16:10) enalapril maleate [From Vasotec] Allergy (Verified 02/20/19 16:10) niacin [From Niaspan] Allergy (Verified 02/20/19 16:10) Past Medical History - General Information source: Patient - Social History Smoking Status: Current Every Day Smoker Chew tobacco use (# tins/day): No Frequency of alcohol use: Social Family History: CVA, Hypertension Patient has suicidal ideation: No Patient has homicidal ideation: No - Past Medical History Cardiac Medical History: Reports: Hx Atrial Fibrillation, Hx Congestive Heart Failure, Hx Coronary Artery Disease, Hx Heart Attack - 2006, Hx Hypercholesterolemia, Hx Hypertension, Hx Pulmonary Embolism - x3 last 2007, on Eliquis Pulmonary Medical History: Reports: Hx Asthma, Hx COPD, Hx Tuberculosis Endocrine Medical History: Reports: Hx Diabetes Mellitus Type 2 Renal/ Medical History: Denies: Hx Peritoneal Dialysis GI Medical History: Reports: Hx Diverticulitis Psychiatric Medical History: Reports: Hx Depression Infectious Medical History: Reports: Hx C-Diff Past Surgical History: Reports: Hx Abdominal Surgery - colon polyps, Hx Cardiac Surgery - CABGx1, Hx Cholecystectomy, Hx Coronary Artery Bypass Graft - 2006, Hx Open Heart Surgery, Hx Rectal Surgery - colon polyps, Hx Urinary Tract Surgery Other: I reviewed the nurse's notes for past medical history. - Immunizations Hx Diphtheria, Pertussis, Tetanus Vaccination: Yes Hx Pneumococcal Vaccination: 07/17/09 Review of Systems - Review of Systems Cardiovascular: Palpitations, Heart racing, Dyspnea, Dizziness, Lightheaded Respiratory: Short of breath. denies: Cough Gastrointestinal: denies: Diarrhea, Vomiting -: Yes All other systems reviewed and negative Physical Exam - Vital signs Vitals: Temp Pulse Resp BP Pulse Ox 98.2 F 54 L 16 153/72 H 96 02/20/19 16:28 02/20/19 16:28 02/20/19 16:28 02/20/19 16:28 02/20/19 16:28 Interpretation: Normal - General General appearance: Appears well, Alert - HEENT Head: Normocephalic, Atraumatic Eyes: Normal Pupils: PERRL - Respiratory Respiratory status: No respiratory distress Chest status: Nontender Breath sounds: Normal Chest palpation: Normal - Cardiovascular Rhythm: Regular, Extrasystoles Heart sounds: Normal auscultation Murmur: No - Abdominal Inspection: Normal Distension: No distension Bowel sounds: Normal Tenderness: Nontender Organomegaly: No organomegaly - Back Back: Normal, Nontender - Extremities General upper extremity: Normal inspection, Nontender, Normal color, Normal ROM, Normal temperature General lower extremity: Normal inspection, Nontender, Normal color, Normal ROM, Normal temperature, Normal weight bearing. No: Elen's sign - Neurological Neuro grossly intact: Yes Cognition: Normal Orientation: AAOx4 [place] Coma Scale Eye Opening: Spontaneous [place] Coma Scale Verbal: Oriented [place] Coma Scale Motor: Obeys Commands [place]ilo Coma Scale Total: 15 Speech: Normal Motor strength normal: LUE, RUE, LLE, RLE Sensory: Normal - Psychological Associated symptoms: Normal affect, Normal mood - Skin Skin Temperature: Warm Skin Moisture: Dry Skin Color: Normal Course - Vital Signs Vital signs: Temp Pulse Resp BP Pulse Ox 98.2 F 54 L 19 148/93 H 95 02/20/19 16:28 02/20/19 16:28 02/20/19 18:01 02/20/19 18:01 02/20/19 18:01 - Laboratory Result Diagrams: 02/20/19 17:16 02/20/19 17:16 Laboratory results interpreted by me: 02/20/19 17:16 RDW 15.6 H Plt Count 142 L - Diagnostic Test Radiology results interpreted by me: 02/20/19 19:40 Patient has a heart score of 6. I discussed the case with the hospitalist. Patient has been accepted for admission. At this time patient is stable and has no significant complaints. 02/20/19 19:41 Chest X-Ray 02/20/19 16:58 IMPRESSION: Borderline heart size without pulmonary edema. - EKG Interpretation by Me EKG shows normal: Sinus rhythm Rate: Normal - 64 Rhythm: NSR, PVC's Pratts/QRS: LAHB/LAFB Heart block present: 1st Degree Discharge - Discharge Clinical Impression: Chest discomfort, Palpitations, Shortness of breath, Dizziness Condition: Fair Disposition: ADMITTED INPATIENT Admitting Provider: Juliette (Hospitalist) Unit Admitted: Telemetry Referrals: BEN HAJI DO [ACTIVE STAFF] - Follow up as needed
--- NOTE | 2019-02-20 17:38 | RADIOLOGY REPORT (SQ) ---
EXAM DESCRIPTION: CHEST SINGLE VIEW COMPLETED DATE/TIME: 02/20/2019 5:28 pm REASON FOR STUDY: SOB COMPARISON: 02/05/2019 EXAM PARAMETERS: NUMBER OF VIEWS: One view. TECHNIQUE: Single frontal radiographic view of the chest acquired. RADIATION DOSE: NA LIMITATIONS: None. FINDINGS: LUNGS AND PLEURA: No opacities, masses or pneumothorax. No pleural effusion. MEDIASTINUM AND HILAR STRUCTURES: No masses. Contour normal. HEART AND VASCULAR STRUCTURES: The heart size is borderline. There is no pulmonary edema. BONES: No acute findings. HARDWARE: Sternotomy wires. OTHER: No other significant finding. IMPRESSION: Borderline heart size without pulmonary edema. TECHNICAL DOCUMENTATION: JOB ID: [id number] [employer]- All Rights Reserved Reading location - IP/workstation name: [email or web address]
--- NOTE | 2019-02-20 17:39 | EKG REPORT ---
SEVERITY:- ABNORMAL ECG - SINUS TACHYCARDIA PAIRED VENTRICULAR PREMATURE COMPLEXES LAD, CONSIDER LEFT ANTERIOR FASCICULAR BLOCK BORDERLINE T WAVE ABNORMALITIES : Confirmed by: Wilder Robins MD 20-Feb-2019 17:38:23
[2019-02-20 17:43] LABS: ABSOLUTE BASOPHILS # (AUTO) 0.1 10^3/uL (0.0-0.2); ABSOLUTE EOSINOPHILS # (AUTO) 0.1 10^3/uL (0.0-0.6); ABSOLUTE LYMPHOCYTES (AUTO) 1.1 10^3/uL (0.5-4.7); ABSOLUTE MONOCYTES (AUTO) 0.5 10^3/uL (0.1-1.4); ABSOLUTE NEUT (AUTO) 3.2 10^3/uL (1.7-8.2); BASOPHILS % (AUTO) 1.9 % (0-2); EOSINOPHILS % (AUTO) 1.6 % (0-6); HEMATOCRIT 42.1 % (37.9-51.0); HEMOGLOBIN 13.9 g/dL (13.5-17.0); LYMPHOCYTES % (AUTO) 22.3 % (13-45); MEAN CORPUSCULAR HEMOGLOBIN 31.4 pg (27.0-33.4); MEAN CORPUSCULAR VOLUME 95 fl (80-97); MONOCYTES % (AUTO) 10.1 % (3-13); PLATELET COUNT 142 10^3/uL (150-450); RED BLOOD COUNT 4.41 10^6/uL (4.35-5.55); RED CELL DISTRIBUTION WIDTH 15.6 % (11.5-14.0); SEGMENTED NEUTROPHILS % (AUTO) 64.1 % (42-78); TOTAL CELLS COUNTED % (AUTO) 100 %
[2019-02-20 18:01] LABS: ALBUMIN 4.4 g/dL (3.5-5.0); ALKALINE PHOSPHATASE 82 U/L (38-126); ANION GAP 11 (5-19); ASPARTATE AMINO TRANSFERASE 50 U/L (17-59); BILIRUBIN,DIRECT 0.3 mg/dL (0.0-0.4); BILIRUBIN,TOTAL 1.1 mg/dL (0.2-1.3); BLOOD UREA NITROGEN 13 mg/dL (7-20); CALCIUM 9.6 mg/dL (8.4-10.2); CARBON DIOXIDE 30 mmol/L (22-30); CHLORIDE 99 mmol/L (98-107); GLUCOSE 91 mg/dL (75-110); POTASSIUM 4.1 mmol/L (3.6-5.0); TOTAL PROTEIN 7.4 g/dL (6.3-8.2)
[2019-02-20] MEDS ORDERED: ONDANSETRON HCL INJ/PF 4 MG/2 ML SDV IV PRN (20:38)
[2019-02-20] MEDS ORDERED: MAGNESIUM HYDROXIDE SUSP 30 ML UDCUP PO PRN (20:38)
[2019-02-20] MEDS ORDERED: LEVALBUTEROL HCL NEB 0.63 MG/3 ML AMPUL NEB PRN (20:38)
[2019-02-20] MEDS ORDERED: MAG HYDROX/AL HYDROX/SIMETH SUSP 30 ML UDCUP PO PRN (20:38)
[2019-02-20] MEDS ORDERED: DIAZEPAM INJ 10 MG/2 ML DISP.SYRIN IV PRN (20:42)
[2019-02-20] MEDS ORDERED: CHLORPROMAZINE HCL INJ 25 MG/1 ML AMPULE IV PRN (20:42)
[2019-02-20] MEDS ORDERED: MORPHINE SULFATE 10 MG/ML INJ IV PRN ×4 (20:42→21:00)
[2019-02-20] MEDS ORDERED: INSULIN REG, HUMAN 100 UNIT/ML 3 ML VIAL (PYX) SUBCUT PRN (20:42)
[2019-02-20] MEDS ORDERED: ACETAMINOPHEN 325 MG TABLET PO PRN (20:42)
[2019-02-20] MEDS ORDERED: NICOTINE 21 MG/24 HR PATCH.TD24 TD PRN (20:42)
[2019-02-20] MEDS ORDERED: HYDRALAZINE HCL INJ/PF 20 MG/1 ML SDV IV PRN (20:42)
[2019-02-20] MEDS ORDERED: DEXTROSE 40% GEL 15 GM TUBE PO PRN ×2 (20:43)
[2019-02-20] MEDS ORDERED: DEXTROSE 50%-WATER 25 GM/50 ML DISP.SYRIN IV PRN ×2 (20:43)
[2019-02-20] MEDS ORDERED: GLUCAGON,HUMAN RECOMB 1 MG INJ IM PRN (20:43)
[2019-02-20 22:08] LABS: FREE T3 3.39 pg/mL (2.77-5.27); FREE T4 (FREE THYROXINE) 1.17 ng/dL (0.78-2.19)
[2019-02-20 22:22] LABS: THYROID STIMULATING HORMONE 0.9 uIU/mL (0.47-4.68)
[2019-02-20 22:28] LABS: CREATINE KINASE MB 0.31 ng/mL (<4.55); TROPONIN I 0.024 ng/mL
[2019-02-20] MEDS: APIXABAN 5 MG TABLET PO SCH (23:11)
[2019-02-20] MEDS: FAMOTIDINE 20 MG TABLET PO SCH (23:11)
--- NOTE | 2019-02-21 00:52 | PDOC H&P ---
History of Present Illness Admission Date/PCP: 02/20/19 19:48 [facility] Patient complains of: Chest pain History of Present Illness: ISAURO CARREON is a 78 year old male who presented to the emergency room with a one-week history of chest discomfort. Patient admits intermittent episodes of moderately intense, nonradiating central chest discomfort, described as an uneasy throbbing pressure lasting for several minutes, made worse by exertion and improved by rest, gradually increasing in frequency and intensity over the last week. He admits that his chest discomfort has been associated with episodic dyspnea worsened by exertion, episodic palpitations (irregular heartbeat), episodic diaphoresis, episodic weakness and episodic dizziness. He denies similar symptoms in the past and has not identified any additional aggravating or ameliorating factors for his chest discomfort. In the emergency room his EKG showed no evidence of acute myocardial ischemia or injury and his initial cardiac enzymes were negative. His chest x-ray showed no acute disease. He was subsequently admitted for further evaluation and treatment. Past Medical History Cardiac Medical History: Reports: Atrial Fibrillation, Congestive Heart Failure, Coronary Artery Disease, Myocardial Infarction - 2006, Hyperlipidema, Hypertension, Pulmonary Embolism - x3 last 2007 Pulmonary Medical History: Reports: Asthma, Chronic Obstructive Pulmonary Disease (COPD), Tuberculosis EENT Medical History: Denies: Cataracts, Nose - Allergic rhinitis Neurological Medical History: Reports: Ischemic CVA Denies: Hemorrhagic CVA, Seizures Endocrine Medical History: Reports: Diabetes Mellitus Type 2, Obesity Denies: Diabetes Mellitus Type 1, Hyperthyroidism, Hypothyroidism Renal/ Medical History: Denies: Chronic Kidney Disease, Nephrolithiasis Malignancy Medical History: Reports: None GI Medical History: Reports: Diverticulitis Denies: Cirrhosis, Crohn's Disease, Hepatitis, Ulcerative Colitis Musculoskeltal Medical History: Denies: Arthritis, Fibromyalgia, Gout Skin Medical History: Denies: Eczema, Psoriasis Psychiatric Medical History: Reports: Alcohol Dependency, Depression, Tobacco Dependency Denies: Substance Abuse Traumatic Medical History: Reports: None Hematology: Reports: Bleeding Tendencies - While on warfarin Denies: Anemia Infectious Medical History: Reports: Clostridium Difficile Past Surgical History Past Surgical History: Reports: Cardiac Catheterization, Cholecystectomy, Coronary Artery Bypass Graft - 2006, Vascular Surgery - IVC filter, Other - Cystoscopy Social History Information Source: Patient Lives with: Alone Smoking Status: Current Every Day Smoker Cigars Per Day: 2 Frequency of Alcohol Use: Heavy - Denies history of withdrawal, seizure, tremor with abstinence Amount of Alcoholic Beverages Per Day: Drinks several glasses of vodka daily. Hx Recreational Drug Use: No Drugs: None Hx Prescription Drug Abuse: No - Advance Directive Resuscitation Status: Full Code Surrogate healthcare decision maker:: Marla Love-Holiday Family History Family History: CVA, Hypertension Parental Family History Reviewed: Yes Children Family History Reviewed: No Sibling(s) Family History Reviewed.: Yes Medication/Allergy Home Medications: Amlodipine Besylate [Norvasc 5 mg Tablet] 5 mg PO DAILY 02/05/19 Apixaban [Eliquis 5 mg Tablet] 5 mg PO Q12 02/05/19 Atorvastatin Calcium [Lipitor 80 mg Tablet] 80 mg PO DAILY 02/05/19 Paroxetine HCl [Paxil] 30 mg PO DAILY 02/05/19 Allergies/Adverse Reactions: ciprofloxacin [From Cipro] Allergy (Verified 02/20/19 16:10) enalapril maleate [From Vasotec] Allergy (Verified 02/20/19 16:10) niacin [From Niaspan] Allergy (Verified 02/20/19 16:10) Review of Systems Constitutional: ABSENT: chills, fever(s) Eyes: ABSENT: visual disturbances, other - Ocular pain Ears: ABSENT: hearing changes, other - Ear pain Nose, Mouth, and Throat: ABSENT: mouth pain, sore throat Cardiovascular: PRESENT: as per HPI, chest pain, dyspnea on exertion, palpitations. ABSENT: edema, orthropnea Respiratory: PRESENT: as per HPI, dyspnea. ABSENT: cough Gastrointestinal: ABSENT: abdominal pain, constipation, diarrhea, nausea, vo miting Musculoskeletal: ABSENT: back pain, joint swelling, muscle weakness Integumentary: PRESENT: as per HPI, diaphoresis. ABSENT: pruritus, rash Neurological: PRESENT: as per HPI, dizziness. ABSENT: confusion, convulsions, focal weakness, memory loss, syncope Psychiatric: ABSENT: anxiety, depression Endocrine: ABSENT: cold intolerance, heat intolerance Hematologic/Lymphatic: PRESENT: easy bleeding - On Eliquis, easy bruising - On Eliquis Allergic/Immunologic: ABSENT: seasonal rhinorrhea Physical Exam Vital Signs: Temp Pulse Resp BP Pulse Ox 98.2 F 54 L 19 148/93 H 95 02/20/19 16:28 02/20/19 16:28 02/20/19 18:01 02/20/19 18:01 02/20/19 18:01 Intake & Output 02/18/19 02/19/19 02/20/19 23:59 23:59 23:59 Weight 89.6 kg General appearance: PRESENT: no acute distress, cooperative Head exam: PRESENT: atraumatic, normocephalic Eye exam: PRESENT: conjunctiva pink. ABSENT: conjunctival injection, scleral icterus Ear exam: PRESENT: normal external ear exam. ABSENT: bleeding, drainage Mouth exam: PRESENT: dry mucosa, neck supple Neck exam: ABSENT: JVD, thyromegaly, tracheal deviation Respiratory exam: PRESENT: clear to auscultation claire, symmetrical, unlabored Cardiovascular exam: PRESENT: RRR, other - Frequent irregular beats. ABSENT: clicks, gallop, rubs Pulses: PRESENT: normal radial pulses, normal dorsalis pedis pul Vascular exam: PRESENT: normal capillary refill. ABSENT: pallor GI/Abdominal exam: PRESENT: normal bowel sounds, soft. ABSENT: tenderness Rectal exam: PRESENT: deferred Extremities exam: ABSENT: joint swelling, pedal edema Musculoskeletal exam: PRESENT: full ROM, normal inspection. ABSENT: tenderness Neurological exam: PRESENT: alert, oriented to person, oriented to place, oriented to time, oriented to situation, CN II-XII grossly intact. ABSENT: motor sensory deficit Psychiatric exam: PRESENT: appropriate affect, normal mood Skin exam: PRESENT: dry, intact, warm. ABSENT: jaundice, rash, urticaria Results Laboratory Results: 02/20/19 17:16 02/20/19 17:16 02/20/19 02/20/19 17:16 17:16 WBC 5.0 RBC 4.41 Hgb 13.9 Hct 42.1 MCV 95 MCH 31.4 MCHC 33.0 RDW 15.6 H Plt Count 142 L Seg Neutrophils % 64.1 Lymphocytes % 22.3 Monocytes % 10.1 Eosinophils % 1.6 Basophils % 1.9 Absolute Neutrophils 3.2 Absolute Lymphocytes 1.1 Absolute Monocytes 0.5 Absolute Eosinophils 0.1 Absolute Basophils 0.1 Sodium 140.2 Potassium 4.1 Chloride 99 Carbon Dioxide 30 Anion Gap 11 BUN 13 Creatinine 1.11 Est GFR ( Amer) > 60 Est GFR (Non-Af Amer) > 60 Glucose 91 Calcium 9.6 Total Bilirubin 1.1 AST 50 Alkaline Phosphatase 82 Total Protein 7.4 Albumin 4.4 02/20/19 17:16 Troponin I 0.020 Impressions: Chest X-Ray 02/20/19 16:58 IMPRESSION: Borderline heart size without pulmonary edema. Assessment and Plan - Diagnosis (1) Chest discomfort Is this a current diagnosis for this admission?: Yes Plan: Patient will have serial cardiac enzymes and EKGs performed. He will be scheduled for a Cardiolite stress test in the morning. Further evaluation and treatment will be based on the results of his testing. Serial CBC, metabolic profile and magnesium levels will be obtained as part of his evaluation. Patient will use morphine sulfate 2 to 4 mg IV every 2 hours on a as needed basis for chest pain per sliding scale. (2) Coronary artery disease Qualifiers: Coronary Disease-Associated Artery/Lesion type: [place] artery [place] vs. transplanted heart: [place] heart Associated angina: with stable angina Qualified Code(s): I25.118 - Atherosclerotic heart disease of [place] coronary artery with other forms of angina pectoris Is this a current diagnosis for this admission?: Yes Plan: Patient be continued on his current cardiac regimen and will be monitored on a telemetry bed throughout his stay. Evaluation of his chest pain will be undertaken as noted above. (3) Chronic diastolic congestive heart failure Is this a current diagnosis for this admission?: Yes Plan: Patient be continued on his current medical regiment and observe for any evid ence of heart failure. A BNP will be obtained in the morning. (4) Hypertension Qualifiers: Hypertension type: essential hypertension Qualified Code(s): I10 - Essential (primary) hypertension Is this a current diagnosis for this admission?: Yes Plan: Patient will be continued on his current antihypertensive regiment his blood pressure be monitored closely throughout his hospital course. (5) Hyperlipidemia Qualifiers: Hyperlipidemia type: unspecified Qualified Code(s): E78.5 - Hyperlipidemia, unspecified Is this a current diagnosis for this admission?: Yes Plan: A lipid profile will be obtained to assess the efficacy of his current therapy. (6) Diabetes mellitus type 2 in nonobese Is this a current diagnosis for this admission?: Yes Plan: Patient will be continued on a diabetic diet and his current diabetic therapy. Before meals and at bedtime blood sugars will be obtained with a sliding scale insulin for hyperglycemia and a hypoglycemic protocol in place. - Time Time Spent with patient: 25-34 minutes Smoking Cessation Education: 3 to 10 minutes Medications reviewed and adjusted accordingly: Yes Anticipated discharge: Home - Inpatient Certification Based on my medical assessment, after consideration of the patient's comorbidities, presenting symptoms, or acuity I expect that the services needed warrant INPATIENT care.: Yes I certify that my determination is in accordance with my understanding of Medicare's requirements for reasonable and necessary INPATIENT services [42 CFR 412.3e].: Yes Medical Necessity: Significant Comorbidiites Make Outpatient Treatment Too Risky, Need Close Monitoring Due to Risk of Patient Decompensation, Need For Continuous Telemetry Monitoring, Risk of Complication if Not Cared For in Hospital
--- NOTE | 2019-02-21 00:55 | ADVANCED CARE ---
- Diagnosis (1) Chest discomfort Diagnosis Current: Yes (2) Coronary artery disease Diagnosis Current: Yes (3) Chronic diastolic congestive heart failure Diagnosis Current: Yes (4) Hypertension Diagnosis Current: Yes (5) Hyperlipidemia Diagnosis Current: Yes (6) Diabetes mellitus type 2 in nonobese Diagnosis Current: Yes Attendance: The patient and myself. Resuscitation Status: Full Code Discussion: After very brief discussion the patient is determined that he wishes to remain full code for his resuscitation status during this admission. He further has named Marla Love-Holsolomon as his designated surrogate medical decision-maker. Care Planning Goals: 1. Patient will be full CODE STATUS for this admission. 2. Marla Love-Holiday is the patient's designated surrogate medical decision- maker. Document(s) Completed: Following entries were made into the patient's permanent medical record, current medical record and current orders via EMR entry: 1. Patient will be full CODE STATUS for this admission. 2. Marla Love-Holiday is the patient's designated surrogate medical decision- maker. Time Spent: 15 minutes
[2019-02-21 04:45] LABS: HEMATOCRIT 41.7 % (37.9-51.0); HEMOGLOBIN 13.7 g/dL (13.5-17.0); MEAN CORPUSCULAR HEMOGLOBIN 31.5 pg (27.0-33.4); MEAN CORPUSCULAR HGB CONC 32.9 g/dL (32.0-36.0); MEAN CORPUSCULAR VOLUME 96 fl (80-97); PLATELET COUNT 140 10^3/uL (150-450); RED BLOOD COUNT 4.36 10^6/uL (4.35-5.55); RED CELL DISTRIBUTION WIDTH 15.6 % (11.5-14.0); WHITE BLOOD COUNT 4.8 10^3/uL (4.0-10.5)
[2019-02-21 05:01] LABS: ANION GAP 11 (5-19); BLOOD UREA NITROGEN 16 mg/dL (7-20); CALCIUM 9.3 mg/dL (8.4-10.2); CARBON DIOXIDE 33 mmol/L (22-30); CHLORIDE 97 mmol/L (98-107); CHOLESTEROL 149.29 mg/dL (0-200); GLUCOSE 120 mg/dL (75-110); POTASSIUM 3.6 mmol/L (3.6-5.0); TRIGLYCERIDES 120 mg/dL (<150)
[2019-02-21 05:12] LABS: CREATINE KINASE MB 0.29 ng/mL (<4.55); DIRECT LDL 67 mg/dL (<100); TROPONIN I 0.027 ng/mL
--- NOTE | 2019-02-21 08:00 | EKG REPORT ---
SEVERITY:- ABNORMAL ECG - SINUS RHYTHM FIRST DEGREE AVB MULTIFORM VENTRICULAR PREMATURE COMPLEXES LAD, CONSIDER LEFT ANTERIOR FASCICULAR BLOCK BORDERLINE T ABNORMALITIES, INFERIOR LEADS PROLONGED QT INTERVAL : Confirmed by: Wilder Robins MD 21-Feb-2019 07:59:36
[2019-02-21] MEDS ORDERED: (PENDING PHARMACY ID) (Paroxetine Hcl [Paxil] 30 MG) PO SCH (10:00)
[2019-02-21] MEDS ORDERED: DOCUSATE SODIUM 100 MG CAPSULE PO SCH (10:00)
[2019-02-21] MEDS ORDERED: AMLODIPINE BESYLATE 5 MG TABLET PO SCH (10:00)
[2019-02-21] MEDS ORDERED: PAROXETINE HCL 20 MG TABLET PO SCH (10:00)
[2019-02-21] MEDS ORDERED: ATORVASTATIN CALCIUM 80 MG TABLET PO SCH (10:00)
[2019-02-21] MEDS: APIXABAN 5 MG TABLET PO SCH (10:57)
[2019-02-21] MEDS: FAMOTIDINE 20 MG TABLET PO SCH (10:57)
[2019-02-21] MEDS ORDERED: REGADENOSON INJ 0.4 MG/5 ML DISP.SYRIN IV ONE (11:37)
[2019-02-21] MEDS: MAGNESIUM SULFATE/D5W 1 GM/100 ML RTUPB IV SCH ×2 (12:13→13:30)
[2019-02-21 12:37] LABS: CREATINE KINASE MB 0.24 ng/mL (<4.55); TROPONIN I 0.02 ng/mL
--- NOTE | 2019-02-21 15:27 | PDOC DISCHARGE SUMMARY ---
General - Admit/Disc Date/PCP Admission Date/Primary Care Provider: 02/20/19 19:48 [facility] Discharge Date: 02/21/19 - Additional Information Resuscitation Status: Full Code Discharge Diet: As Tolerated Discharge Activity: Activity As Tolerated Home Medications: Amlodipine Besylate [Norvasc 5 mg Tablet] 5 mg PO DAILY 02/05/19 Apixaban [Eliquis 5 mg Tablet] 5 mg PO Q12 02/05/19 Atorvastatin Calcium [Lipitor 80 mg Tablet] 80 mg PO DAILY 02/05/19 Paroxetine HCl [Paxil] 30 mg PO DAILY 02/05/19 History of Present Illness Patient complains of: None this a.m. History of Present Illness: ISAURO CARREON is a 78 year old male was admitted for chest pain. Hospital Course Hospital Course: Mr. carreon was admitted for chest pain. He had serial troponins and a stress test today per Dr. Salazar. Stress test was negative for any findings. Patient was discharged home at this time follow-up Dr. Salazar within 1 week. Physical Exam Vital Signs: Temp Pulse Resp BP Pulse Ox 97.8 F 96 18 149/69 H 97 02/21/19 11:20 02/21/19 13:20 02/21/19 13:20 02/21/19 11:20 02/21/19 13:20 Intake & Output 02/20/19 02/21/19 02/22/19 06:59 06:59 06:59 Intake Total 402 574 Balance 402 574 Weight 89.2 kg General appearance: PRESENT: no acute distress, well-developed, well-nourished Head exam: PRESENT: atraumatic, normocephalic Eye exam: PRESENT: conjunctiva pink, EOMI, PERRLA. ABSENT: scleral icterus Ear exam: PRESENT: normal external ear exam Mouth exam: PRESENT: moist, tongue midline Neck exam: ABSENT: carotid bruit, JVD, lymphadenopathy, thyromegaly Respiratory exam: PRESENT: clear to auscultation claire. ABSENT: rales, rhonchi, wheezes Cardiovascular exam: PRESENT: RRR. ABSENT: diastolic murmur, rubs, systolic murmur Pulses: PRESENT: normal dorsalis pedis pul Vascular exam: PRESENT: normal capillary refill GI/Abdominal exam: PRESENT: normal bowel sounds, soft. ABSENT: distended, guarding, mass, organolmegaly, rebound, tenderness Rectal exam: PRESENT: deferred Extremities exam: PRESENT: full ROM. ABSENT: calf tenderness, clubbing, pedal edema Neurological exam: PRESENT: alert, awake, oriented to person, oriented to place, oriented to time, oriented to situation, CN II-XII grossly intact. ABSENT: motor sensory deficit Psychiatric exam: PRESENT: appropriate affect, normal mood. ABSENT: homicidal ideation, suicidal ideation Skin exam: PRESENT: dry, intact, warm. ABSENT: cyanosis, rash Results Laboratory Results: 02/21/19 03:34 02/21/19 03:34 02/20/19 02/20/19 02/20/19 17:16 17:16 17:16 WBC 5.0 RBC 4.41 Hgb 13.9 Hct 42.1 MCV 95 MCH 31.4 MCHC 33.0 RDW 15.6 H Plt Count 142 L Seg Neutrophils % 64.1 Lymphocytes % 22.3 Monocytes % 10.1 Eosinophils % 1.6 Basophils % 1.9 Absolute Neutrophils 3.2 Absolute Lymphocytes 1.1 Absolute Monocytes 0.5 Absolute Eosinophils 0.1 Absolute Basophils 0.1 Sodium 140.2 Potassium 4.1 Chloride 99 Carbon Dioxide 30 Anion Gap 11 BUN 13 Creatinine 1.11 Est GFR ( Amer) > 60 Est GFR (Non-Af Amer) > 60 Glucose 91 Calcium 9.6 Magnesium Total Bilirubin 1.1 AST 50 Alkaline Phosphatase 82 Total Protein 7.4 Albumin 4.4 Triglycerides Cholesterol LDL Cholesterol Direct VLDL Cholesterol HDL Cholesterol TSH 0.90 Free T4 1.17 Free T3 pg/mL 3.39 02/21/19 02/21/19 03:34 03:34 WBC 4.8 RBC 4.36 Hgb 13.7 Hct 41.7 MCV 96 MCH 31.5 MCHC 32.9 RDW 15.6 H Plt Count 140 L Seg Neutrophils % Lymphocytes % Monocytes % Eosinophils % Basophils % Absolute Neutrophils Absolute Lymphocytes Absolute Monocytes Absolute Eosinophils Absolute Basophils Sodium 140.6 Potassium 3.6 Chloride 97 L Carbon Dioxide 33 H Anion Gap 11 BUN 16 Creatinine 1.17 Est GFR ( Amer) > 60 Est GFR (Non-Af Amer) > 60 Glucose 120 H Calcium 9.3 Magnesium 1.4 L Total Bilirubin AST Alkaline Phosphatase Total Protein Albumin Triglycerides 120 Cholesterol 149.29 LDL Cholesterol Direct 67 VLDL Cholesterol 24.0 HDL Cholesterol 74 TSH Free T4 Free T3 pg/mL 02/20/19 02/20/19 02/20/19 17:16 21:47 21:47 Creatine Kinase 120 CK-MB (CK-2) 0.31 Troponin I 0.020 0.024 NT-Pro-B Natriuret Pep 02/21/19 02/21/19 02/21/19 03:34 03:34 03:34 Creatine Kinase 109 CK-MB (CK-2) 0.29 Troponin I 0.027 NT-Pro-B Natriuret Pep 390 02/21/19 02/21/19 11:14 11:14 Creatine Kinase 100 CK-MB (CK-2) 0.24 Troponin I 0.020 NT-Pro-B Natriuret Pep Impressions: Chest X-Ray 02/20/19 16:58 IMPRESSION: Borderline heart size without pulmonary edema. Qualifiers - * PATIENT BEING DISCHARGED WITH ANY OF THE FOLLOWING DIAGNOSIS: No Acute Heart Failure - Is this a Heart Failure Patient?: No Plan Time Spent: Greater than 30 Minutes
[2019-02-21 15:35] VITALS: BP 149/90
--- NOTE | 2019-02-26 08:06 | DRAGON STRESS TEST REPORT ---
Intravenous Lexiscan Cardiolite stress test using single photon emmision computerized tomography. Date of procedure: 02/21/2019. Ordering Provider: Dr. Osman Segovia. Patient's status: In Patient Indication: Chest pain in a patient with coronary artery disease and history of coronary bypass graft surgery. Coronary risk factors: Age, hypertension, dyslipidemia, and tobacco abuse disorder. Resting EKG: Sinus Rhythm. One PVC. Poor R wave leads V1 to V6. Stress EKG: No changes of ischemia. The patient had no chest pain or discomfort, and there were no arrhythmias seen Reason for termination: Protocol. Conclusions: Normal EKG and hemodynamic response to IV Lexiscan. Nuclear data: At rest the patient was given 13.97 millicuries of technetium 99m sestamibi injected intravenously. As per protocol rest non gated SPECT images were obtained. Subsequently the patient was given intravenous Lexiscan at a dose of 0.4 mg in 5 mL intravenously, followed by flush with normal saline. Subsequently the stress dose of 41.4 millicuries of technetium 99m sestamibi was injected intravenously. As per protocol stress gated images were obtained. Nuclear interpretation: Review of images showed that all segments of the myocardium had normal perfusion at rest, and normal perfusion post stress with IV Lexiscan. All segments of the myocardium had normal motion, contraction, and thickening by gated study. T. I D. ratio was upper normal at 1.20. Visually the T I D ratio was much less. There is no transient ischemic dilatation of the left ventricle. Computer read rest, and stress left ventricular ejection fraction were 46 %, and 43 %, respectively. Visually both the stress and rest ejection fractions were normal, and greater than 55%. Conclusion: 1. There is no scintigraphic evidence of Lexiscan induced myocardial ischemia. 2. There is no scintigraphic evidence of myocardial infarction/scar. Recommendations: Aggressive risk factor modification, and treating the underlying co- morbidities. Check echo for LV ejection fraction correlation. [facility]ANES[facility]
== END 2019-02-21 16:29 | disposition home or self-care (01) ==
LOC: ER 16:06 → INTOOBSV 19:48 → EH 19:48 → 4N 20:40
PROVIDERS: ADMIT Emergency Medicine; ATTEND Emergency Medicine
PROC: HZ31ZZZ Individual Counseling for Substance Abuse Treatment, Behavioral (ICD-10-PCS; principal; 2019-02-21)
DX: R07.89 Other chest pain (principal); I48.91 Unspecified atrial fibrillation; I11.0 Hypertensive heart disease with heart failure; I50.22 Chronic systolic (congestive) heart failure; R61 Generalized hyperhidrosis; R53.1 Weakness; R42 Dizziness and giddiness; I25.118 Atherosclerotic heart disease of native coronary artery with other forms of angina pectoris; E78.5 Hyperlipidemia, unspecified; E11.9 Type 2 diabetes mellitus without complications; F17.210 Nicotine dependence, cigarettes, uncomplicated; R06.09 Other forms of dyspnea; I44.0 Atrioventricular block, first degree; Z95.1 Presence of aortocoronary bypass graft; I25.2 Old myocardial infarction; Z86.711 Personal history of pulmonary embolism; Z79.899 Other long term (current) drug therapy; Z79.02 Long term (current) use of antithrombotics/antiplatelets; Z90.49 Acquired absence of other specified parts of digestive tract; Z60.2 Problems related to living alone; Z82.49 Family history of ischemic heart disease and other diseases of the circulatory system
CPT/HCPCS: 99406; 93005 ×2; 99284; 36415 ×2; 84439; 82553 ×2; 82962 ×2; 82550 ×2; 83735; 84443; 85025; 85027; 80048; 80053; 84484 ×2; 84481; 83036; 80061; 83880; 93017; 71045; 78452; 93010 ×2; G0378; A9500; J2785; J3475; J3490; Q9969

== ENCOUNTER 2019-03-12 10:39 | Emergency (ER) | payer OTHER, MEDICARE ==
[2019-03-12] MEDS ORDERED: ASPIRIN 81 MG TABLET, CHEWABLE PO ONE (11:25)
[2019-03-12] MEDS ORDERED: ONDANSETRON 4 MG TAB.RAPDIS PO ONE (11:30)
--- NOTE | 2019-03-12 11:33 | ER Document Report ---
ED Medical Screen (RME) - General Chief Complaint: Chest Pain Stated Complaint: CHEST PAIN Time Seen by Provider: 03/12/19 11:25 Primary Care Provider: JOSIE,WU [Primary Care Provider] - Follow up as needed Mode of Arrival: Wheelchair Information source: Patient Notes: This 78-year-old male with Presents with midsternal chest pain that radiates to his right side of his neck that started this morning. Also complains of nausea shortness of breath and some weakness. Reports he checked his pulse this morning and it was very low. Has history of CAD with stent placement. Patient was evaluated for same symptoms a few weeks in the emergency department. 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 I have greeted and performed a rapid initial assessment of this patient. A comprehensive ED assessment and evaluation of the patient, analysis of test results and completion of the medical decision making process will be conducted by additional ED providers. Dictation of this chart was performed using voice recognition software; therefore, there may be some unintended grammatical errors. TRAVEL OUTSIDE OF THE [place] IN LAST 30 DAYS: No - Related Data Allergies/Adverse Reactions: ciprofloxacin [From Cipro] Allergy (Verified 03/12/19 10:40) enalapril maleate [From Vasotec] Allergy (Verified 03/12/19 10:40) niacin [From Niaspan] Allergy (Verified 03/12/19 10:40) Past Medical History - Social History Chew tobacco use (# tins/day): No Frequency of alcohol use: Heavy Drug Abuse: None - Past Medical History Cardiac Medical History: Reports: Hx Atrial Fibrillation, Hx Congestive Heart Failure, Hx Coronary Artery Disease, Hx Heart Attack - 2006, Hx Hypercholesterolemia, Hx Hypertension, Hx Pulmonary Embolism - x3 last 2007 Pulmonary Medical History: Reports: Hx Asthma, Hx COPD, Hx Tuberculosis Neurological Medical History: Denies: Hx Seizures Endocrine Medical History: Reports: Hx Diabetes Mellitus Type 2. Denies: Hx Diabetes Mellitus Type 1, Hx Hyperthyroidism, Hx Hypothyroidism Renal/ Medical History: Denies: Hx Peritoneal Dialysis GI Medical History: Reports: Hx Diverticulitis. Denies: Hx Cirrhosis, Hx Crohn's Disease, Hx Hepatitis, Hx Ulcerative Colitis Musculoskeltal Medical History: Denies Hx Arthritis, Denies Hx Fibromyalgia, Denies Hx Gout Skin Medical History: Denies Hx Eczema, Denies Hx Psoriasis Psychiatric Medical History: Reports: Hx Depression Infectious Medical History: Reports: Hx C-Diff. Denies: Hx Hepatitis Past Surgical History: Reports: Hx Abdominal Surgery - colon polyps, Hx Cardiac Catheterization, Hx Cardiac Surgery - CABGx1, Hx Cholecystectomy, Hx Coronary Artery Bypass Graft - 2006, Hx Open Heart Surgery, Hx Rectal Surgery - colon polyps, Hx Urinary Tract Surgery, Hx Vascular Surgery - IVC filter, Other - Cystoscopy - Immunizations Hx Diphtheria, Pertussis, Tetanus Vaccination: Yes History of Influenza Vaccine for 04/2017 - 09/2017 Season: Refused Doctor's Discharge - Discharge Referrals: [facility] [[facility]] - Follow up as needed
[2019-03-12 12:20] LABS: ABSOLUTE BASOPHILS # (AUTO) 0.1 10^3/uL (0.0-0.2); ABSOLUTE LYMPHOCYTES (AUTO) 0.7 10^3/uL (0.5-4.7); ABSOLUTE MONOCYTES (AUTO) 0.5 10^3/uL (0.1-1.4); ABSOLUTE NEUT (AUTO) 4.2 10^3/uL (1.7-8.2); BASOPHILS % (AUTO) 1.1 % (0-2); EOSINOPHILS % (AUTO) 0.5 % (0-6); HEMATOCRIT 42.5 % (37.9-51.0); HEMOGLOBIN 13.8 g/dL (13.5-17.0); LYMPHOCYTES % (AUTO) 12.8 % (13-45); MEAN CORPUSCULAR HEMOGLOBIN 31.2 pg (27.0-33.4); MEAN CORPUSCULAR HGB CONC 32.6 g/dL (32.0-36.0); MEAN CORPUSCULAR VOLUME 96 fl (80-97); MONOCYTES % (AUTO) 8.8 % (3-13); PLATELET COUNT 161 10^3/uL (150-450); RED BLOOD COUNT 4.44 10^6/uL (4.35-5.55); RED CELL DISTRIBUTION WIDTH 15.7 % (11.5-14.0); SEGMENTED NEUTROPHILS % (AUTO) 76.8 % (42-78); TOTAL CELLS COUNTED % (AUTO) 100 %; WHITE BLOOD COUNT 5.5 10^3/uL (4.0-10.5)
[2019-03-12 12:24] LABS: INTERNATIONAL RATION (INR) 1.39; PROTHROMBIN TIME 17.2 SEC (11.4-15.4)
[2019-03-12 12:25] LABS: PARTIAL THROMBOPLASTIN TIME 28.1 SEC (23.5-35.8)
--- NOTE | 2019-03-12 12:30 | RADIOLOGY REPORT (SQ) ---
EXAM DESCRIPTION: CHEST 2 VIEWS COMPLETED DATE/TIME: 03/12/2019 12:17 pm REASON FOR STUDY: cp COMPARISON: 02/20/2019 EXAM PARAMETERS: NUMBER OF VIEWS: two views TECHNIQUE: Digital Frontal and Lateral radiographic views of the chest acquired. RADIATION DOSE: NA LIMITATIONS: none FINDINGS: LUNGS AND PLEURA: No focal consolidation. No pleural effusion. Blunting of the left cost ophrenic, likely scarring. No significant effusion. MEDIASTINUM AND HILAR STRUCTURES: No masses or contour abnormalities. HEART AND VASCULAR STRUCTURES: Normal heart size. Aortic atherosclerosis. BONES: No acute findings. HARDWARE: Median sternotomy hardware. OTHER: No other significant finding. IMPRESSION: No evidence of acute cardiopulmonary process. TECHNICAL DOCUMENTATION: JOB ID: [id number] [employer]- All Rights Reserved Reading location - IP/workstation name: [email or web address]
[2019-03-12 12:38] LABS: ALKALINE PHOSPHATASE 82 U/L (38-126); ANION GAP 10 (5-19); ASPARTATE AMINO TRANSFERASE 60 U/L (17-59); BILIRUBIN,DIRECT 0.4 mg/dL (0.0-0.4); BILIRUBIN,TOTAL 1.9 mg/dL (0.2-1.3); BLOOD UREA NITROGEN 14 mg/dL (7-20); CARBON DIOXIDE 30 mmol/L (22-30); CHLORIDE 99 mmol/L (98-107); CREATINE KINASE 210 U/L (55-170); GLUCOSE 156 mg/dL (75-110); TOTAL PROTEIN 7.1 g/dL (6.3-8.2)
--- NOTE | 2019-03-12 19:00 | EKG REPORT ---
SEVERITY:- ABNORMAL ECG - WANDERING PACEMAKER LEFT ATRIAL ABNORMALITY LAD, CONSIDER LEFT ANTERIOR FASCICULAR BLOCK BORDERLINE T ABNORMALITIES, INFERIOR LEADS PROLONGED QT INTERVAL : Confirmed by: Wilder Robins MD 12-Mar-2019 18:59:23
--- NOTE | 2019-03-12 19:48 | ER Document Report ---
ED Cardiac - General Chief Complaint: Chest Pain Stated Complaint: CHEST PAIN Time Seen by Provider: 03/12/19 11:25 [facility] [[facility]] - Follow up as needed Mode of Arrival: Wheelchair Information source: Patient TRAVEL OUTSIDE OF THE [place] IN LAST 30 DAYS: No - HPI Notes: Patient states that he was working around the house today when he developed left-sided chest pain that went to the left arm. He states it made him sweaty and diaphoretic. He states it lasted about 30 minutes. Nothing made it better or worse. There is moderate in intensity. It was an aching sensation. He had some mild shortness of breath as well. No nausea. No recent falls or trauma. No cough or congestion. - Related Data Allergies/Adverse Reactions: ciprofloxacin [From Cipro] Allergy (Verified 03/12/19 10:40) enalapril maleate [From Vasotec] Allergy (Verified 03/12/19 10:40) niacin [From Niaspan] Allergy (Verified 03/12/19 10:40) Past Medical History - General Information source: Patient - Social History Smoking Status: Current Every Day Smoker Chew tobacco use (# tins/day): No Frequency of alcohol use: Heavy Drug Abuse: None Family History: CVA, Hypertension Patient has suicidal ideation: No Patient has homicidal ideation: No - Past Medical History Cardiac Medical History: Reports: Hx Atrial Fibrillation, Hx Congestive Heart Failure, Hx Coronary Artery Disease, Hx Heart Attack - 2006, Hx Hypercholesterolemia, Hx Hypertension, Hx Pulmonary Embolism - x3 last 2007 Pulmonary Medical History: Reports: Hx Asthma, Hx COPD, Hx Tuberculosis Neurological Medical History: Denies: Hx Seizures Endocrine Medical History: Reports: Hx Diabetes Mellitus Type 2. Denies: Hx Diabetes Mellitus Type 1, Hx Hyperthyroidism, Hx Hypothyroidism Renal/ Medical History: Denies: Hx Peritoneal Dialysis GI Medical History: Reports: Hx Diverticulitis. Denies: Hx Cirrhosis, Hx Crohn's Disease, Hx Hepatitis, Hx Ulcerative Colitis Musculoskeletal Medical History: Denies Hx Arthritis, Denies Hx Fibromyalgia, Denies Hx Gout Skin Medical History: Denies Hx Eczema, Denies Hx Psoriasis Psychiatric Medical History: Reports: Hx Depression Infectious Medical History: Reports: Hx C-Diff. Denies: Hx Hepatitis Past Surgical History: Reports: Hx Abdominal Surgery - colon polyps, Hx Cardiac Catheterization, Hx Cardiac Surgery - CABGx1, Hx Cholecystectomy, Hx Coronary Artery Bypass Graft - 2006, Hx Open Heart Surgery, Hx Rectal Surgery - colon polyps, Hx Urinary Tract Surgery, Hx Vascular Surgery - IVC filter, Other - Cystoscopy - Immunizations Hx Diphtheria, Pertussis, Tetanus Vaccination: Yes Hx Pneumococcal Vaccination: 07/17/09 Review of Systems - Review of Systems Constitutional: denies: Chills, Fever Cardiovascular: Chest pain, Palpitations, Dyspnea Respiratory: Short of breath. denies: Cough Gastrointestinal: denies: Diarrhea, Vomiting -: Yes All other systems reviewed and negative Physical Exam - Vital signs Vitals: Resp 14 03/12/19 15:10 Interpretation: Normal - General General appearance: Appears well, Alert - HEENT Head: Normocephalic, Atraumatic Eyes: Normal Pupils: PERRL - Respiratory Respiratory status: No respiratory distress Chest status: Nontender Breath sounds: Normal Chest palpation: Normal - Cardiovascular Rhythm: Regular Heart sounds: Normal auscultation Murmur: No - Abdominal Inspection: Normal Distension: No distension Bowel sounds: Normal Tenderness: Nontender Organomegaly: No organomegaly - Back Back: Normal, Nontender - Extremities General upper extremity: Normal inspection, Nontender, Normal color, Normal ROM, Normal temperature General lower extremity: Normal inspection, Nontender, Normal color, Normal ROM, Normal temperature, Normal weight bearing. No: Elen's sign - Neurological Neuro grossly intact: Yes Cognition: Normal Orientation: AAOx4 [place] Coma Scale Eye Opening: Spontaneous [place] Coma Scale Verbal: Oriented [place] Coma Scale Motor: Obeys Commands [place] Coma Scale Total: 15 Speech: Normal Motor strength normal: LUE, RUE, LLE, RLE Sensory: Normal - Psychological Associated symptoms: Normal affect, Normal mood - Skin Skin Temperature: Warm Skin Moisture: Dry Skin Color: Normal Course - Re-evaluation Re-evalutation: 03/12/19 19:46 At this time patient resting comfortably in the bed without any significant complaints. I did discuss the case with the patient's transportation broker Dr. Hernández. He states that the patient can be discharged home and follow-up with him in the office tomorrow. - Vital Signs Vital signs: Temp Pulse Resp BP Pulse Ox 21 H 121/73 97 03/12/19 19:01 03/12/19 19:01 03/12/19 19:01 - Laboratory Result Diagrams: 03/12/19 11:50 03/12/19 11:50 Laboratory results interpreted by me: 03/12/19 03/12/19 03/12/19 11:50 11:50 11:50 RDW 15.7 H Lymph % (Auto) 12.8 L PT 17.2 H Glucose 156 H Total Bilirubin 1.9 H AST 60 H Creatine Kinase 210 H 03/12/19 19:45 Laboratory 03/12/19 03/12/19 03/12/19 11:50 11:50 11:50 WBC 5.5 RBC 4.44 Hgb 13.8 Hct 42.5 MCV 96 MCH 31.2 MCHC 32.6 RDW 15.7 H Plt Count 161 Lymph % (Auto) 12.8 L [place] % (Auto) 8.8 Eos % (Auto) 0.5 Baso % (Auto) 1.1 Absolute Neuts (auto) 4.2 Absolute Lymphs (auto) 0.7 Absolute Monos (auto) 0.5 Absolute Eos (auto) 0.0 Absolute Basos (auto) 0.1 Seg Neutrophils % 76.8 PT INR APTT Sodium 138.7 Potassium 4.0 Chloride 99 Carbon Dioxide 30 Anion Gap 10 BUN 14 Creatinine 0.96 Est GFR ( Amer) > 60 Est GFR (MDRD) Non-Af > 60 Glucose 156 H Calcium 9.0 Total Bilirubin 1.9 H Direct Bilirubin 0.4 Neonat Total Bilirubin Not Reportable Neonat Direct Bilirubin Not Reportable Neonat Indirect Bili Not Reportable AST 60 H ALT 21 Alkaline Phosphatase 82 Creatine Kinase 210 H Troponin I 0.023 Total Protein 7.1 Albumin 4.0 03/12/19 03/12/19 11:50 17:15 WBC RBC Hgb Hct MCV MCH MCHC RDW Plt Count Lymph % (Auto) [place] % (Auto) Eos % (Auto) Baso % (Auto) Absolute Neuts (auto) Absolute Lymphs (auto) Absolute Monos (auto) Absolute Eos (auto) Absolute Basos (auto) Seg Neutrophils % PT 17.2 H INR 1.39 APTT 28.1 Sodium Potassium Chloride Carbon Dioxide Anion Gap BUN Creatinine Est GFR ( Amer) Est GFR (MDRD) Non-Af Glucose Calcium Total Bilirubin Direct Bilirubin Neonat Total Bilirubin Neonat Direct Bilirubin Neonat Indirect Bili AST ALT Alkaline Phosphatase Creatine Kinase Troponin I 0.019 Total Protein Albumin - Diagnostic Test Radiology reviewed: Image reviewed, Reports reviewed Radiology results interpreted by me: 03/12/19 19:45 Chest X-Ray 03/12/19 11:25 IMPRESSION: No evidence of acute cardiopulmonary process. - EKG Interpretation by Me EKG shows normal: abnormal: Sinus rhythm - wap, Crum Rate: Tachycardia - 105 Rhythm: Other - wap Crum/QRS: Left axis deviation When compared to previous EKG there are: Changes noted - rhythym changed but no ischemic changes Discharge - Discharge Clinical Impression: Atypical chest pain Condition: Stable Disposition: HOME, SELF-CARE Instructions: Chest Pain of Unclear Cause ([facility]) Additional Instructions: Please call Dr. Hernández first thing in the morning. He states he will see you in the office. Referrals: TIKA HERNÁNDEZ MD [ACTIVE STAFF] - Follow up tomorrow
[2019-03-12 19:58] VITALS: BP 111/97
== END 2019-03-12 20:00 | disposition home or self-care (01) ==
LOC: ER 10:39
DX: R07.89 Other chest pain (principal); F17.200 Nicotine dependence, unspecified, uncomplicated; I48.91 Unspecified atrial fibrillation; I50.9 Heart failure, unspecified; I11.0 Hypertensive heart disease with heart failure; E78.00 Pure hypercholesterolemia, unspecified; I25.2 Old myocardial infarction; Z88.3 Allergy status to other anti-infective agents; Z95.1 Presence of aortocoronary bypass graft
CPT/HCPCS: 93005; 99285; 36415; 82550; 85025; 85610; 85730; 80053; 84484; 71046; 93010; S0119